=== PATIENT | female | born 2005 | race Two or more races ===

== ENCOUNTER 2024-07-18 09:27 | Emergency (ER) | payer OTHER, SELFPAY ==
[2024-07-18 09:52] VITALS: BP 129/79; PULSE 76; TEMP 36.8; O2SAT 97; BMI 18.0
[2024-07-18 10:30] LABS: Bilirubin Urine NEGATIVE (NEGATIVE); Blood Urine LARGE (NEGATIVE); Clarity Urine CLOUDY (CLEAR); Color Urine DK. RED (YELLOW); Glucose Urine UA NEGATIVE (NEGATIVE); Ketones Urine NEGATIVE (NEGATIVE); Leukocyte Esterase Urine TRACE (NEGATIVE); Nitrite Urine NEGATIVE (NEGATIVE); Protein Urine 100 mg/dL (NEG/TRACE); pH Urine 6.5 (5.0-9.0)
[2024-07-18 10:36] LABS: Urine Microscopic Indicated YES
[2024-07-18 10:36] LABS: Basophils Percent Auto 0.5 % (0.2-2.0); Eosinophils Absolute Auto 0.1 10^3/uL (0.0-0.7); Eosinophils Percent Auto 1.3 % (0.9-7.0); Hemoglobin 12.9 g/dL (12.0-16.0); Immature Granulocytes Abs Auto 0.03 10^3/uL (0.00-0.03); Immature Granulocytes Pct Auto 0.4 % (0.0-0.5); Lymphocytes Absolute Auto 1.7 10^3/uL (1.2-3.8); Lymphocytes Percent Auto 20.1 % (20.5-60.0); Mean Corpuscular HGB Conc 33.9 g/dL (29.9-35.2); Mean Corpuscular Hemoglobin 29.8 pg (26.7-34.0); Mean Corpuscular Volume 87.8 fL (81.0-99.0); Mean Platelet Volume 9.7 fL (9.5-13.5); Monocytes Absolute Auto 0.6 10^3/uL (0.3-0.8); Monocytes Percent Auto 7.7 % (1.7-12.0); Neutrophils Absolute Auto 5.9 10^3/uL (1.4-6.5); Platelet Count 340 10^3/uL (150-450); Red Blood Count 4.33 10^6/uL (4.20-5.40); Red Cell Distribution Width 11.7 % (11.0-15.0); White Blood Count 8.4 10^3/uL (4.0-11.0)
[2024-07-18 10:39] LABS: Bacteria Urine TRACE #/HPF (NONE SEEN); Cast Seen? NONE SEEN #/LPF (NONE SEEN); Crystals Seen? None Seen #/HPF (None Seen); Mucus Urine TRACE (NONE SEEN); RBC Urine >100 #/HPF (0-2); Squamous Epithelial Cell Urine FEW #/LPF (NONE/RARE); Urine Culture Indicated YES-FRMC
[2024-07-18 10:55] LABS: Alanine Aminotransferase 13 U/L (14-59); Albumin Globulin Ratio 1.3; Albumin Level 4.3 g/dL (3.4-5.0); Alkaline Phosphatase 74 U/L (46-116); Anion Gap 16.6; Aspartate Amino Transferase 13 U/L (15-37); BUN Creatinine Ratio 9.4; Bilirubin Total 1.1 mg/dL (0.2-1.0); Calcium 9.3 mg/dL (8.5-10.1); Carbon Dioxide 23.2 mmol/L (21.0-32.0); Chloride 103 mmol/L (98-107); Estimated GFR (African America >60 (>=60 mL/min/1.73m^2); Estimated GFR (Non-African Ame >60 (>=60 mL/min/1.73m^2); Globulin 3.2 g/dL; Glucose 95 mg/dL (74-106); Potassium 3.8 mmol/L (3.5-5.1); Sodium 139 mmol/L (136-145); Total Protein 7.5 g/dL (6.4-8.2)
[2024-07-18 11:01] LABS: HCG Quantitative 666 mIU/mL
[2024-07-18 12:46] VITALS: BP 120/72; PULSE 92; O2SAT 98
--- NOTE | 2024-07-18 13:32 | ED_ITS ---
HPI - Female Genitourinary General Chief complaint: Vaginal Bleeding Stated complaint: 7WKS BLEEDING Time Seen by Provider: 07/18/24 10:13 Source: patient Mode of arrival: ambulance Limitations: no limitations History of Present Illness HPI Narrative: The patient is a 19 years old who is 6-7 weeks coming to the ER after she had 2 days of bleeding vaginally initially it was spotting but then started being more of a blood clot over the last 24 hours. Patient also have some suprapubic cramping This is her first and she was supposed to get an ultrasound at the end of this week to confirm the intrauterine position The patient denies any fall or trauma and she denies any difficulty breathing or dizziness Related Data Home Medications ?Medication ?Instructions ?Recorded ?Confirmed vit no.133-ferrous tab PO 07/18/24 fumarate 28 mg-folic acid 800 mcg tablet () Previous Rx's ?Medication ?Instructions ?Recorded amoxicillin 875 mg-potassium 1 tab PO BID #10 tabs 07/18/24 clavulanate 125 mg tablet Allergies Allergy/AdvReac Type Severity Reaction Status Date / Time No Known Drug Allergies Allergy Verified 07/18/24 09:52 Review of Systems ROS Status of ROS 10 or more systems reviewed and unremark able except as noted in history and below PFSH PFSH Social History Little interest or pleasure in doing things: not at all Feeling down, depressed, or hopeless: not at all Exam Narrative Exam Narrative: Nurses notes and vital signs reviewed and patient is not hypoxic. General: Well-appearing and in no apparent distress. Skin: Warm, dry, no pallor noted. No rash. Head: Normocephalic, atraumatic. Neck: Supple, non-tender. Cardiovascular: Regular Rate and Rhythm without murmur, gallop or rub. Respiratory: No accessory muscle use or respiratory distress. Lungs are clear to auscultation, no wheezing, rales or rhonchi Chest Wall: no tenderness Back: No midline thoracic or lumbar vertebral tenderness. No CVA tenderness Musculoskeletal: normal ROM, no calf or popliteal tenderness, no lower extremity edema/swelling GI: Abdomen is soft, non-distended. Normal bowel sounds. No masses appreciated. No tenderness to palpation. No rebound, guarding, or rigidity noted. Neurological: A&O x4. No cranial nerve dysfunction observed. No truncal ataxia. Moves all extremities. Sensation intact. Psychiatric: Cooperative and interactive. Normal mood and affect. Constitutional Vital Signs, click to edit/add: Last Vital Signs Temp 98.2 F 07/18/24 09:52 Pulse 92 H 07/18/24 12:46 Resp 12 07/18/24 12:46 BP 120/72 07/18/24 12:46 Pulse Ox 98 07/18/24 12:46 O2 Del Method Room Air 07/18/24 12:46 Course Vital Signs Vital signs: Vital Signs Temperature 98.2 F 07/18/24 09:52 Pulse Rate 76 07/18/24 09:52 Respiratory Rate 18 07/18/24 09:52 Blood Pressure 129/79 07/18/24 09:52 Pulse Oximetry 97 07/18/24 09:52 Oxygen Delivery Method Room Air 07/18/24 09:52 Temperature 98.2 F 07/18/24 09:52 Pulse Rate 92 H 07/18/24 12:46 Respiratory Rate 12 07/18/24 12:46 Blood Pressure 120/72 07/18/24 12:46 Pulse Oximetry 98 07/18/24 12:46 Oxygen Delivery Method Room Air 07/18/24 12:46 MDM - Female Genitourinary MDM Narrative Medical decision making narrative: The patient hCG is 600 The CBC and chemistry showed no acute significant pathology and the urine showed some bacteria Her blood type is a positive And her ultrasound showed no intrauterine with a correlation with the fact that is early The patient will follow up with Dr. Akers on Saturday she was instructed about the importance of blood workup test to make sure that the hCG is doubling up every other day The patient is to follow up with primary care physician in next 2-3 days or to return to the emergency department should any of the signs or symptoms worsen or new symptoms develop. The patient agrees with the following Diagnosis and Treatment plan and the patient will be discharged home. Lab Data Labs: Lab Results 07/18/24 07/18/24 Range/Units 10:05 10:31 WBC 8.4 (4.0-11.0) 10^3/uL RBC 4.33 (4.20-5.40) 10^6/uL Hgb 12.9 (12.0-16.0) g/dL Hct 38.0 (36.0-48.0) % MCV 87.8 (81.0-99.0) fL MCH 29.8 (26.7-34.0) pg MCHC 33.9 (29.9-35.2) g/dL RDW 11.7 (11.0-15.0) % Plt Count 340 (150-450) 10^3/uL MPV 9.7 (9.5-13.5) fL Neut % (Auto) 70.0 (43.0-75.0) % Lymph % (Auto) 20.1 L (20.5-60.0) % White % (Auto) 7.7 (1.7-12.0) % Eos % (Auto) 1.3 (0.9-7.0) % Baso % (Auto) 0.5 (0.2-2.0) % Neut # (Auto) 5.9 (1.4-6.5) 10^3/uL Lymph # (Auto) 1.7 (1.2-3.8) 10^3/uL White # (Auto) 0.6 (0.3-0.8) 10^3/uL Eos # (Auto) 0.1 (0.0-0.7) 10^3/uL Baso # (Auto) 0.0 (0.0-0.1) 10^3/uL Abs Immat Gran (auto) 0.03 (0.00-0.03) 10^3/uL Imm/Tot Granulo (auto) 0.4 (0.0-0.5) % Sodium 139 (136-145) mmol/L Potassium 3.8 (3.5-5.1) mmol/L Chloride 103 (98-107) mmol/L Carbon Dioxide 23.2 (21.0-32.0) mmol/L Anion Gap 16.6 BUN 8.0 (7.0-18.0) mg/dL Creatinine 0.85 (0.55-1.02) mg/dL Est GFR ( Amer) >60 (>=60 mL/min/1.73m^2) Est GFR (Non-Af Amer) >60 (>=60 mL/min/1.73m^2) BUN/Creatinine Ratio 9.4 Glucose 95 (74-106) mg/dL Calcium 9.3 (8.5-10.1) mg/dL Total Bilirubin 1.1 H (0.2-1.0) mg/dL AST 13 L (15-37) U/L ALT 13 L (14-59) U/L Alkaline Phosphatase 74 (46-116) U/L Total Protein 7.5 (6.4-8.2) g/dL Albumin 4.3 (3.4-5.0) g/dL Globulin 3.2 g/dL Albumin/Globulin Ratio 1.3 HCG, Quant 666 mIU/mL Urine Color Dk. red (YELLOW) Urine Clarity Cloudy A (CLEAR) Urine pH 6.5 (5.0-9.0) Ur Specific Bentley 1.010 (1.005-1.025) Urine Protein 100 A (NEG/TRACE) mg/dL Urine Glucose (UA) Negative (NEGATIVE) mg/dL Urine Ketones Negative (NEGATIVE) mg/dL Urine Occult Blood Large A (NEGATIVE) Urine Nitrite Negative (NEGATIVE) Urine Bilirubin Negative (NEGATIVE) Urine Urobilinogen 1.0 (0.2-1.0) EU/dL Ur Leukocyte Esterase Trace A (NEGATIVE) Urine RBC >100 A (0-2) #/HPF Urine WBC 5-10 A (NONE SEEN) #/HPF Ur Squamous Epith Cells Few A (NONE/RARE) #/LPF Urine Crystals None seen (None Seen) #/HPF Urine Bacteria Trace A (NONE SEEN) #/HPF Urine Casts None seen (NONE SEEN) #/LPF Urine Mucus Trace A (NONE SEEN) Ur [place] [place] A Positive Antibody Screen Negative Discharge Plan Discharge Chief Complaint: Vaginal Bleeding Clinical Impression: Vaginal bleeding affecting early , Asymptomatic bacteriuria during Patient Disposition: Home, Self-Care Time of Disposition Decision: 12:30 Condition: Good Prescriptions / Home Meds: New amoxicillin-pot clavulanate 875-125 mg tablet 1 tab PO BID Qty: 10 0RF No Action 28-800 mg-mcg tablet PO Print Language: Mauritanian Instructions: Threatened Miscarriage (ED), Urinary Tract Infection in (ED) Referrals: Anthony Akers DO [Physician] - As soon as possible Physician,Non-Staff, [Primary Care Provider] - 1 week Discharge Date/Time: 07/18/24 12:49
== END 2024-07-18 12:49 | disposition home or self-care (01) ==
PROVIDERS: Emergency Provider Emergency Medicine
DX: O20.9 Hemorrhage in early pregnancy, unspecified (principal); Z3A.01 Less than 8 weeks gestation of pregnancy; O99.891 Other specified diseases and conditions complicating pregnancy; R82.71 Bacteriuria
CPT/HCPCS: 36415; 76817; 80053; 81001; 84702; 85025; 86850; 86900; 86901; 87086; 99284

== ENCOUNTER 2024-07-21 15:24 | Outpatient (RCR) | payer OTHER, SELFPAY ==
[2024-07-21 16:34] LABS: HCG Quantitative 83 mIU/mL
[2024-07-29 16:24] LABS: HCG Quantitative 6 mIU/mL
== END 2024-07-29 09:55 | disposition home or self-care (01) ==
LOC: LAB 15:24
PROVIDERS: Visit Provider Obstetrics & Gynecology
DX: N92.6 Irregular menstruation, unspecified (principal)
CPT/HCPCS: 36415; 84702

== ENCOUNTER 2024-10-22 15:37 | Emergency (ER) | payer OTHER, SELFPAY ==
--- OUTSIDE RECORDS SUMMARY | 2024-07-13 11:45 | XMS_ITS ---
Author Organization [facility] vices Address [address] [place], [place] [address] Care Team Providers Care Biology Internship Name Role Phone Nadia Barrett Primary Care Provider [phone] Georgia Ramos [phone] REASON FOR VISIT Wellness (physical for work) Social History Sex Assigned At : Social History Observation Description Sex Assigned At Female Encounters Encounter Location Date Provider Diagnosis Third [address] [facility] [place] [address] 07/13/2024 Georgia Ramos Plan Of Treatment No Information Progress Notes * Rand JACKSON MDOB: [birth year] (19 yo F)Acc No.[id number]:07/13/2024 Medical Note Patient: Rand LIU Provider: Jim Ramos MD :2005 A ge:19 Y S ex:Female Date:07/13/2024 Address:[address] [place], [place] [phone] Pcp:Nadia Barrett Subjective: * Chief Complaints: * 1 . Wellness (physical for work). * Medical History: Objective: * Vitals: Assessment: Plan: * Treatment: * Billing Information: * Visit Code: * Procedure Codes: * Electronic signature of Mary Ramos MD on 10/22/2024 at 04:15 PM EDT Sign off status: Pending * Provider: Jim Ramos MD Date: 0 07/13/2024 Generated for Tanisha turner/Ana María/Berry on: 0 10/22/2024 04:15 PM EDT
[2024-10-22 15:52] VITALS: BP 129/78; PULSE 65; TEMP 36.6; O2SAT 99; BMI 19.7
--- NOTE | 2024-10-22 16:10 | ED.GENADUL1 ---
HPI HPI - General Adult General Chief complaint: Nausea/Vomiting/Diarrhea Stated complaint: VOMITTING LAST 2 DAYS Time Seen by Provider: 10/22/24 15:46 Source: patient Mode of arrival: walk-in Limitations: no limitations History of Present Illness HPI narrative: This 19-year-old female presents chief complaint multiple episodes of vomiting yesterday. Today she vomited 5 times. She denies diarrhea or abdominal pain. LMP was 3 weeks ago. Her last usage of marijuana was 2 days ago. Related Data Home Medications ?Medication ?Instructions ?Recorded ?Confirmed vits no.133-ferrous tab PO 07/18/24 fumarate 28 mg-folic acid 800 mcg tablet () Previous Rx's ?Medication ?Instructions ?Recorded promethazine 12.5 mg tablet 12.5 mg PO TID PRN nausea and 10/22/24 vomiting #10 tabs Allergies Allergy/AdvReac Type Severity Reaction Status Date / Time No Known Drug Allergies Allergy Verified 10/22/24 15:55 Opioid HPI Opioid Management Most Recent Opioid Data: Last Pain Scale 2 07/18/24, 11:16 Review of Systems ROS Status of ROS 10 or more systems reviewed and unremarkable except as noted in history and below [facility] Social History Little interest or pleasure in doing things: not at all Feeling down, depressed, or hopeless: not at all Exam Narrative Exam Narrative: Patient is not ill-appearing. Vital signs are stable. Skin is warm and dry. Oral cavity is moist. HEENT exam is normal to inspection. Neck is supple. Lung sounds are clear to auscultation bilaterally with good air entry. Heart has regular rate and rhythm. Abdomen soft nontender. There is no organomegaly or distention. Extremities warm and dry and there is no pallor or icterus. Constitutional Vital Signs, click to edit/add: Last Vital Signs Temp 97.8 F 10/22/24 15:52 Pulse 65 10/22/24 15:52 Resp 16 10/22/24 15:52 BP 129/78 10/22/24 15:52 Pulse Ox 99 10/22/24 15:52 O2 Del Method Room Air 10/22/24 15:52 Course Vital Signs Vital signs: Vital Signs Temperature 97.8 F 10/22/24 15:52 Pulse Rate 65 10/22/24 15:52 Respiratory Rate 16 10/22/24 15:52 Blood Pressure 129/78 10/22/24 15:52 Pulse Oximetry 99 10/22/24 15:52 Oxygen Delivery Method Room Air 10/22/24 15:52 Temperature 97.8 F 10/22/24 15:52 Pulse Rate 65 10/22/24 15:52 Respiratory Rate 16 10/22/24 15:52 Blood Pressure 129/78 10/22/24 15:52 Pulse Oximetry 99 10/22/24 15:52 Oxygen Delivery Method Room Air 10/22/24 15:52 Medical Decision Making MDM Narrative Medical decision making narrative: Patient was treated with a liter of IV fluids and IV Zofran. She has not had any vomiting in the ED. She is advised to abstain from cannabis use and is placed on promethazine to control nausea and vomiting at home. Follow-up as advised with PCP and she may return anytime for worsening symptoms. Lab Data Labs: Lab Results 10/22/24 10/22/24 Range/Units 16:20 16:21 WBC 9.1 (4.0-11.0) 10^3/uL RBC 4.52 (4.20-5.40) 10^6/uL Hgb 13.7 (12.0-16.0) g/dL Hct 39.6 (36.0-48.0) % MCV 87.6 (81.0-99.0) fL MCH 30.3 (26.7-34.0) pg MCHC 34.6 (29.9-35.2) g/dL RDW 12.0 (11.0-15.0) % Plt Count 348 (150-450) 10^3/uL MPV 10.0 (9.5-13.5) fL Neut % (Auto) 80.4 H (43.0-75.0) % Lymph % (Auto) 13.5 L (20.5-60.0) % [place] % (Auto) 5.6 (1.7-12.0) % Eos % (Auto) 0.0 L (0.9-7.0) % Baso % (Auto) 0.2 (0.2-2.0) % Neut # (Auto) 7.3 H (1.4-6.5) 10^3/uL Lymph # (Auto) 1.2 (1.2-3.8) 10^3/uL [place] # (Auto) 0.5 (0.3-0.8) 10^3/uL Eos # (Auto) 0.0 (0.0-0.7) 10^3/uL Baso # (Auto) 0.0 (0.0-0.1) 10^3/uL Abs Immat Gran (auto) 0.03 (0.00-0.03) 10^3/uL Imm/Tot Granulo (auto) 0.3 (0.0-0.5) % Sodium 139 (136-145) mmol/L Potassium 3.3 L (3.5-5.1) mmol/L Chloride 100 (98-107) mmol/L Carbon Dioxide 26.8 (21.0-32.0) mmol/L Anion Gap 15.5 BUN 13.0 (7.0-18.0) mg/dL Creatinine 0.78 (0.55-1.02) mg/dL Est GFR ( Amer) >60 (>=60 mL/min/1.73m^2) Est GFR (Non-Af Amer) >60 (>=60 mL/min/1.73m^2) BUN/Creatinine Ratio 16.7 Glucose 95 (74-106) mg/dL Calcium 9.8 (8.5-10.1) mg/dL Total Bilirubin 0.8 (0.2-1.0) mg/dL AST 13 L (15-37) U/L ALT 20 (14-59) U/L Alkaline Phosphatase 83 (46-116) U/L Total Protein 8.1 (6.4-8.2) g/dL Albumin 4.5 (3.4-5.0) g/dL Globulin 3.6 g/dL Albumin/Globulin Ratio 1.2 Urine Color Yellow (YELLOW) Urine Clarity Clear (CLEAR) Urine pH 6.0 (5.0-9.0) Ur Specific [place] 1.025 (1.005-1.025) Urine Protein 30 A (NEG/TRACE) mg/dL Urine Glucose (UA) Negative (NEGATIVE) mg/dL Urine Ketones >=80 A (NEGATIVE) mg/dL Urine Occult Blood Negative (NEGATIVE) Urine Nitrite Negative (NEGATIVE) Urine Bilirubin Small A (NEGATIVE) Urine Urobilinogen 1.0 (0.2-1.0) EU/dL Ur Leukocyte Esterase Negative (NEGATIVE) Urine RBC 0-2 (0-2) #/HPF Urine WBC 0-2 A (NONE SEEN) #/HPF Ur Squamous Epith Cells Moderate A (NONE/RARE) #/LPF Urine Crystals None seen (None Seen) #/HPF Urine Bacteria Large A (NONE SEEN) #/HPF Urine Casts None seen (NONE SEEN) #/LPF Urine Mucus Moderate A (NONE SEEN) Ur Culture Indicated? Yes-[facility] Urine HCG, Qual Negative (NEGATIVE) Discharge Plan Discharge Chief Complaint: Nausea/Vomiting/Diarrhea Clinical Impression: Nausea and vomiting Qualifiers: Vomiting type: unspecified Qualified Code(s): R11.2 - Nausea with vomiting, unspecified Patient Disposition: Home, Self-Care Time of Disposition Decision: 17:46 Condition: Good Mode of Transportation: Private Vehicle Prescriptions / Home Meds: New promethazine 12.5 mg tablet 12.5 mg PO TID PRN (Reason: nausea and vomiting) Qty: 10 0RF No Action 28-800 mg-mcg tablet PO Print Language: South Korean Instructions: Acute Nausea and Vomiting (ED) Additional Instructions: Abstain from cannabis use. Follow-up with your PCP next week. Return for worsening symptoms. Referrals: Physician,Non-Staff, MD [Primary Care Provider] - 1 week
--- OUTSIDE RECORDS SUMMARY | 2024-10-22 16:16 | XMS_ITS | Clinical Summary ---
Author Organization [employer] s tem Address [facility] [id number] [address] [place] [address] Care Team Providers Care Assisted Living Housekeeper Name Role Phone Unavailable Primary Care Provider Unavailabl e Social History Tobacco Use Types Packs/Day Years Used Date Smoking Tobacco: Never Assessed Childcare Answer Date Recorded Childcare Unknown 09/10/2018 Employment Answer Date Recorded Employment Unknown 09/10/2018 Comments Unknown Sex and Gender Information Value Date Recorded Sex Assigned at Not on file Legal Sex Female 6:56 PM EDT Gender Identity Not on file Sexual Orientation Not on file Plan of Treatment Health Maintenance Due Date Last Done Comments Depression Screening 2016 Tobacco Screening 2016 Adult BMI Screening 2022 DTaP,Tdap and Td Vaccines (1 - Tdap) 07/03/2023 Influenza Vaccine 11/30/2024 Medical Devices Not on file
--- OUTSIDE RECORDS SUMMARY | 2024-10-22 16:16 | XMS_ITS | Clinical Summary ---
Author Organization [facility] Address [address] [place] [address] Care Team Providers Care Television Director Name Role Phone Unavailable Primary Care Provider Unavailabl e Allergies No known active allergies Medications sertraline (Zoloft) 50 MG tablet TAKE 1 TABLET BY MOUTH ONCE DAILY IN THE MORNING FOR 30 DAYS Active Encounters Date Type Department Care Team Description 07/29/2024 Clinisync Result Encounter [facility] External Department Unsolicited Anthony Akers DO from Last 3 Months Social History Tobacco Use Types Packs/Day Years Used Date Smoking Tobacco: Never Assessed Comments No Sex and Gender Information Value Date Recorded Sex Assigned at Not on file Legal Sex Female 9:50 PM EDT Gender Identity Not on file Sexual Orientation Not on file Last Filed Vital Signs Vital Sign Reading Time Taken Comments Blood Pressure 90/62 07/22/2024 3:28 PM EDT Pulse - - Temperature - - Respiratory Rate - - Oxygen Saturation - - Inhaled Oxygen Concentration - - Weight 48.5 kg (107 lb) 07/22/2024 3:28 PM EDT Height - - Body Mass Index - - Plan of Treatment Not on file Procedures Procedure Name Priority Date/Time Associated Diagnosis Comments [facility] PREG QUANT HCG Routine 07/29/2024 3: 55 PM EDT from Last 3 Months Results * [facility] PREG QUANT HCG (07/29/2024 3:55 PM EDT) [facility] HCG QUANTITATIVE 6 mIU/mL [facility] Comment: 5-50 0.2-1 WEEK 50-500 1-2 WEEKS 100-5,000 2-3 WEEKS 500-10,000 3-4 WEEKS 1,000-50,000 4-5 WEEKS 10,000-100,000 5-6 WEEKS 15,000-200,000 6-8 WEEKS 10,000-100,000 2-3 MONTHS 07/29/2024 3:55 PM EDT 07/29/2024 3:55 PM EDT Narrative [facility] - 07/29/2024 4:24 PM EDT us Anthony Oswald DO [facility] Final Result [facility] from Last 3 Months Insurance [employer]
[2024-10-22 16:33] LABS: Hematocrit 39.6 % (36.0-48.0); Hemoglobin 13.7 g/dL (12.0-16.0); Immature Granulocytes Abs Auto 0.03 10^3/uL (0.00-0.03); Immature Granulocytes Pct Auto 0.3 % (0.0-0.5); Lymphocytes Absolute Auto 1.2 10^3/uL (1.2-3.8); Mean Corpuscular HGB Conc 34.6 g/dL (29.9-35.2); Mean Corpuscular Hemoglobin 30.3 pg (26.7-34.0); Mean Corpuscular Volume 87.6 fL (81.0-99.0); Platelet Count 348 10^3/uL (150-450); Red Blood Count 4.52 10^6/uL (4.20-5.40); White Blood Count 9.1 10^3/uL (4.0-11.0)
[2024-10-22] MEDS: 0.9 % SODIUM CHLORIDE 1,000 ML 1000 ML IV (16:37)
[2024-10-22 16:42] LABS: Glucose Urine UA NEGATIVE (NEGATIVE)
[2024-10-22 16:44] LABS: HCG Qualitative Urine* NEGATIVE (NEGATIVE)
[2024-10-22 16:46] LABS: Alanine Aminotransferase 20 U/L (14-59); Albumin Globulin Ratio 1.2; Albumin Level 4.5 g/dL (3.4-5.0); Alkaline Phosphatase 83 U/L (46-116); Anion Gap 15.5; Aspartate Amino Transferase 13 U/L (15-37); Blood Urea Nitrogen 13.0 mg/dL (7.0-18.0); Calcium 9.8 mg/dL (8.5-10.1); Carbon Dioxide 26.8 mmol/L (21.0-32.0); Chloride 100 mmol/L (98-107); Estimated GFR (African America >60 (>=60 mL/min/1.73m^2); Estimated GFR (Non-African Ame >60 (>=60 mL/min/1.73m^2); Globulin 3.6 g/dL; Glucose 95 mg/dL (74-106); Potassium 3.3 mmol/L (3.5-5.1); Sodium 139 mmol/L (136-145); Total Protein 8.1 g/dL (6.4-8.2)
[2024-10-22 16:50] LABS: Cast Seen? NONE SEEN #/LPF (NONE SEEN); Crystals Seen? None Seen #/HPF (None Seen); Urine Culture Indicated YES-FRMC
== END 2024-10-22 17:59 | disposition home or self-care (01) ==
PROVIDERS: Emergency Provider Emergency Medicine
DX: R11.2 Nausea with vomiting, unspecified (principal)
CPT/HCPCS: 36415; 80053; 81001; 84703; 85025; 87086; 96361; 96374; 99285; J2405

== ENCOUNTER 2024-12-31 15:54 | Outpatient (OUT) | payer OTHER, SELFPAY ==
--- OUTSIDE RECORDS SUMMARY | 2024-07-13 11:45 | XMS_ITS ---
Author Organization [employer] [facility] vices Address [address] [place], [place] [phone] Care Team Providers Care Lpn Private Duty Name Role Phone Dennise Oden Primary Care Provider Georgia Ramos Unavailable [phone] REASON FOR VISIT Wellness (physical for work) Social History Sex Assigned At : Social History Observation Description Sex Assigned At Female Encounters Encounter Location Date Provider Diagnosis Third [address] [facility] [place] [address] [place] [address] 07/13/2024 Georgia Ramos Plan Of Treatment No Information Progress Notes * Rand JACKSON MDOB: [birth year] (19 yo F)Acc No.[id number]:07/13/2024 Medical Note Patient: Rand LIU Provider: Jim Ramos MD :2005 A ge:19 Y S ex:Female Date:07/13/2024 Address:[address] [place], [place] [phone] Pcp:Dennise Oden Subjective: * Chief Complaints: * 1 . Wellness (physical for work). * Medical History: Objective: * Vitals: Assessment: Plan: * Treatment: * Billing Information: * Visit Code: * Procedure Codes: * Electronic signature of Mary Ramos MD on 12/31/2024 at 03:58 PM EDT Sign off status: Pending * Provider: Jim Ramos MD Date: 0 07/13/2024 Generated for Tanisha turner/Ana María/Berry on: 1 03:58 PM EDT
--- OUTSIDE RECORDS SUMMARY | 2024-10-23 08:00 | XMS_ITS ---
Author Organization [facility] vices Address [address] [place], [place] [address] Care Team Providers Care Guitar Maker Name Role Phone Dennise Oden Primary Care Provider Georgia Ramos Unavailable [phone] REASON FOR VISIT ER Reyes 10/22 - Vomiting Social History Sex Assigned At : Social History Observation Description Sex Assigned At Female Encounters Encounter Location Date Provider Diagnosis Third [address] [facility] [place] [address] [place] [address] 10/23/2024 Georgia Ramos Plan Of Treatment No Information Progress Notes * Rand JACKSON MDOB: [birth year] (19 yo F)Acc No.[id number]:10/23/2024 Medical Note Patient: Rand LIU Provider: Jim Ramos MD :2005 A ge:19 Y S ex:Female Date:10/23/2024 Address:[address] [place], [place] [phone] Pcp:Dennise Oden Subjective: * Chief Complaints: * 1 . ER [place]al[place] 10/22 - Vomiting. * Medical History: Objective: * Vitals: Assessment: Plan: * Treatment: * Billing Information: * Visit Code: * Procedure Codes: * Electronic signature of Mary Ramos MD on 12/31/2024 at 03:58 PM EDT Sign off status: Pending * Provider: Jim Ramos MD Date: 0 10/23/2024 Generated for Tanisha turner/Ana María/Berry on: 1 03:58 PM EDT
--- OUTSIDE RECORDS SUMMARY | 2024-12-31 15:58 | XMS_ITS | Clinical Summary ---
Author Organization [facility] Address [address] [place] [address] Care Team Providers Care Quality Facilitator Name Role Phone Melani Mora DMD, MD Unavailable [phone] Source Comments The following information is NOT included in Care Everywhere downloads:Psychiatric notes, ECG results, Cardiac Rehab notes, Pulmonary Function notes, data from [employer] (includes but not limited toPregnancy data,audiograms, eye exams, pre-surgical evaluation notes, well-child exam data).[facility] Allergies No known active allergies Medications sertraline (ZOLOFT) 50 MG tablet Take 50 mg by mouth daily. Active norethindrone-e thinyl estradiol (JUNE04/20) 1-20 MG-MCG tablet Take 1 Tablet by mouth daily. 03/02/2023 Active chlorhexidine (Peridex) 0.12 % oral solution Take 15 mL by mouth 2 times daily (after meals) for 7 days. Swish and spit 15ml BID after meals. Rinse for 30 seconds and then gently spit. Do not swallow. 473 mL 03/22/2023 Active Resolved Problems Problem Noted Date Diagnosed Date Resolved Date Abnormal tooth eruption 02/05/202303/02 Immunizations Immunization Administration Dates Next Due DTaP, 5 pertussis antigens ( Daptacel) (IMB=411) 10/03/2005 DTaP-Hep B-IPV (Pediarix) (BPW=189) 01/02/2005,0 2004,2004 HPV, 9-valent (Gardasil 9) (FER=477) 05/30/2018, 08/31/2016 Hep A (peds/adol, 2 dose) (CVX=83) 11/07/2006, Hib (PRP-T) (CVX=48) 10/03/2005,01/03/20 05,2004,09/04 Influenza, injectable, triva lent, preservative free (QQN=940) 02/24/2007 Influenza, intranasal, live, trivalent (LAIV3) (DIS=382) 02/20/2008 MMR, Olclrpd-Xqhhe-Izugwfh (CVX=03) 08/20/2008,0 10/03/2005 Meningococcal conjugate (MCV4,Men-ACWY), Menactra (MCV4P) (BZP=444) 07/24/2021,08/31/2016 Pneumococcal conjugate 7 sharri ent (PCV7) (BHC=783) 10/03/2005,01/02/2005,2004,09/04 Polio, inactivated (IPV) (CVX=10) 09/02/2009 Tdap (XWR=012) 08/31/2016,08/20/2008 Varicella (Chickenpox) (CVX=21) 08/20/2008,10/03 Social History Tobacco Use Types Packs/Day Years Used Date Smoking Tobacco: Every Day E-cigarette Smokeless Tobacco: Never Tobacco Cessation:Ready to Q uit: Not Asked Alcohol Use Standard Drinks/Week Comments Not Currently 0 (1 standard drink = 0.6 oz pur e alcohol) Substance Use Types Use/Week Comments Yes Marijuana/THC Comments No Sex and Gender Information Value Date Recorded Sex Assigned at Not on file Legal Sex Female 4:18 PM EDT Gender Identity Not on file Sexual Orientation Not on file Last Filed Vital Signs Vital Sign Reading Time Taken Comments Blood Pressure 134/84 03/22/2023 12:00 PM EST Pulse 85 03/22/2023 12:00 PM EST Temperature 37.2 C (98.9 F) 03/22/2023 11:21 AM EST Respiratory Rate 14 03/22/2023 12:00 PM EST Oxygen Saturation 100% 03/22/2023 12:00 PM EST Inhaled Oxygen Concentration - - Weight 54.4 kg (120 lb) 03/22/2023 10:04 AM EST Height 162.6 cm (5' 4 ) 03/22/2023 10:04 AM EST Body Mass Index 20.6 03/22/2023 10:04 AM EST Plan of Treatment Health Maintenance Due Date Last Done Comments HIV Test 07/03/2019 Meningococcal B (Bexsero,OMV ) Vaccine (Optional,16-23 years) 2020 Hepatitis C Antibody 2022 STI Screening (Age 18-24) 2022 Pneumococcal Vaccine(s) (1 o f 2 - PCV) 07/03/2023 10/03/2005, 01/02/2005, 2004, Additional history exists COVID-19 Vaccine ( - 2023-2 5 season) 2024 Influenza Vaccine (#1) 2024 02/20/2008, 2006 Tetanus (Td or Tdap) Booster 08/31/2026 08/31/2016, 08/20/2008 Shingles (RZV) Vaccine (1 of 2) 2054 Hepatitis B (HBV) Vaccine Completed 2004, 2004, 2004 Hepatitis A (HAV) Vaccine Completed 11/07/2006, 10/2006 Tdap Booster Completed 08/31/2016, 08/20/2008 HPV Vaccine Completed 05/30/2018, 08/31/2016 Meningococcal Conjugate (MCV4,ACWY) Vaccine Discontinued 07/24/2021, 08/31/2016 Mammography Discontinued Insurance [employer] on file [address] [place] [address] [employer] Care Teams Quality Facilitator Relationship Specialty Start Date End Date Melani Mora DMD, MD [address] [place] [id number] Physician Oral & Maxillofacial Surgery 03/02/23
--- OUTSIDE RECORDS SUMMARY | 2024-12-31 15:59 | XMS_ITS | Encounter Summary ---
Author Organization [facility] Address [address] [place] [address] Care Team Providers Care Account Services Specialist Name Role Phone Unavailable Primary Care Provider Unavailabl e Encounter Details Date Type Department Care Team (Late st Contact Info) Description 12/31/2024 [place] [address] Danna Jimenez MA Social History Tobacco Use Types Packs/Day Years Used Date Smoking Tobacco: Never Assessed Comments No Sex and Gender Information Value Date Recorded Sex Assigned at Not on file Legal Sex Female 9:50 PM EDT Gender Identity Not on file Sexual Orientation Not on file documented as of this encounter Miscellaneous Notes * Telephone Encounter - Danna Jimenez MA - 12/31/2024 1:39 PM EDT Pt's mother called in stating daughter went to [facility] for early ultrasound and they did not see anything. Called pt. Pt denies any bleeding or cramping. Pt states LMP is 11/06/2024. Per EXTENSION SUPERVISOR pt to repeat ultrasound in 1wk and have hCG level drawn and possible serial hCG levels. PVU orders faxed toT documented in this encounter Plan of Treatment Upcoming Encounters Date Type Department Care Team (Late st Contact Info) Description 01/07/2025 1:00 PM EDT Ancillary [place] [address] 01/07/2025 1:30 PM EDT [place] [address] Scheduled Orders Name Type Priority Associated Diagnoses Orde r Schedule hCG, quantitative, Lab Routine Positive urine test ([facility]) 2 Occurrences starting 12/31/2024 until 12/31/2025 documented as of this encounter Visit Diagnoses Diagnosis Positive urine test ([facility]) Missed menses Positive urine test ([facility]) documented in this encounter
--- OUTSIDE RECORDS SUMMARY | 2024-12-31 15:59 | XMS_ITS | Clinical Summary ---
Author Organization [employer] s tem Address [id number] [address] [place] [address] Care Team Providers Care Radio Commentator Name Role Phone Unavailable Primary Care Provider [...]
--- OUTSIDE RECORDS SUMMARY | 2024-12-31 15:59 | XMS_ITS | Clinical Summary ---
Author Organization [facility] Address [address] [place] [address] Care Team Providers Care Fermentologist Name Role Phone Unavailable Primary Care Provider Unavailabl e Allergies No known active allergies Medications sertraline (Zoloft) 50 MG tablet TAKE 1 TABLET BY MOUTH ONCE DAILY IN THE MORNING FOR 30 DAYS Active Progesterone 200 MG suppositoryIndi cations:History of miscarriage Insert 200 mg into the vagina at bedtime Insert suppository vaginally every night at bedtime until 12 weeks gestation 30 suppository 3 12/24/19 25 025 Active Encounters Date Type Department Care Team Description 12/31/2024 Telephone [facility] [address] [place] [address] [place] [phone] Danna Jimenez MA 12/23/2024 Telephone [facility] [address] [place] [address] [place] [address] Anthony Akers DO from Last 3 Months [...] Mass Index - - Plan of Treatment Upcoming Encounters Date Type Department Care Team ( Contact Info) Description 01/07/2025 1:00 PM EDT Ancillary Procedure [facility] [address] [place] [address] 01/07/2025 1:30 PM EDT [place] [phone] Insurance [employer]
--- OUTSIDE RECORDS SUMMARY | 2024-12-31 15:59 | XMS_ITS | Encounter Summary ---
Author Organization [facility] Address [address] [place] [address] Care Team Providers Care Glove Printer Name Role Phone Unavailable Primary Care Provider Unavailabl e Encounter Details Date Type Department Care Team (Late st Contact Info) Description 12/23/2024 Telephone [facility] [address] [place] [address] Anthony Akers DO [address] [place], [place] [phone] Social History Tobacco Use Types Packs/Day Years Used Date Smoking Tobacco: Never Assessed Comments No Sex and Gender Information Value Date Recorded Sex Assigned at Not on file Legal Sex Female 9:50 PM EDT Gender Identity Not on file Sexual Orientation Not on file documented as of this encounter Miscellaneous Notes * Telephone Encounter - Rae Lugo LPN - 12/23/2024 9:35 AM EDT Patient called the office states has had a history of miscarriage and she was advised to call the office once she does have a positive test to start meds. Patient call was returned and she was advised [facility]. PVU documented in this encounter Plan of Treatment Upcoming Encounters Date Type Department Care Team (Late st Contact Info) Description 01/07/2025 1:00 PM EDT Ancillary Procedure [facility] [address] [place] [address] 01/07/2025 1:30 PM EDT Initial [facility] [address] [place] [address] [place] [phone] documented as of this encounter Visit Diagnoses Diagnosis History of miscarriage Personal history of other genital system and obstetric disorders Missed menses Positive urine test ([facility]) documented in this encounter
--- OUTSIDE RECORDS SUMMARY | 2024-12-31 19:53 | XMS_ITS | CCD ---
Author Organization [facility] Care Team Providers Care Brace End [place] Former Name Role Phone Unavailable Primary Care Provider Unavailkhloe Mora DMD, MD, Petra Unavailable [phone] PROVIDER, UNKNOWN Admitting Unavailable PROVIDER, UNKNOWN Attending Unavailable YU FU Referring Unavailable PROVIDER, UNKNOWN Admitting Unavailable PROVIDER, UNKNOWN Attending Unavailable BARBY MORA Referring Unavailable BARBY MORA Admitting Unavailable BARBY MORA Attending Unavailable PROVIDER, UNKNOWN Admitting Unavailable PROVIDER, UNKNOWN Attending Unavailable Unavailable Primary Care Provider VASILE Espinal Attending Unavailable Haley Dickerson MD Attending Provider Shabbir Kraus MD Attending Provider Shabbir Kraus Attending Unavailable Shabbir Kraus Admitting Unavailable Haley Dickerson Attending Unavailable Haley Dickerson Admitting Unavailable Medications Current Medications Medication Drug Class(es) Dates Sig (Normalized) Sig (Original) acetaminophen 500 mg oral tablet (1 source) Start: 03-22-2023 acetaminophen (TYLENOL) tablet acetaminophen 325 mg / HYDROcodone bitartrate 5 mg oral tablet (1 source) Opioid Agonist Start: 03-22-2023 End: 03-25-2023 take 1 tablet by mouth every six hours as needed for pain hydrocodone-acetami nophen (Camas) 5-325 mg per tablet Indications: Pain following oral surgery Take 1 Tablet by mouth every 6 hours as needed for Pain for up to 3 days. 12 Tablet 0 03/22/2023 03/25/2023 Active albuterol 0.83 mg/ml inhalation solution (1 source) beta2-Adrenergic Agonist Start: 03-22-2023 End: 03-22-2023 albuterol (PROVENTIL) (2.5 MG/3ML) 0.083% nebulizer solution calcium chloride 0.0014 meq/ml / potassium chloride 0.004 meq/ml / sodium chloride 0.103 meq/ml / sodium lactate 0.028 meq/ml injectable solution (2 sources) Start: 03-22-2023 lactated ringers iv infusion celecoxib 200 mg oral capsule (1 source) Nonsteroidal Anti-inflammatory Drug Start: 03-22-2023 celecoxib (CeleBREX) capsule chlorhexidine gluconate 1.2 mg/ml mouthwash (2 sources) Start: 03-22-2023 End: 03-29-2023 chlorhexidine (Peridex) 0.12 % oral solution Take 15 mL by mouth 2 times daily (after meals) for 7 days. Swish and spit 15ml BID after meals. Rinse for 30 seconds and then gently spit. Do not swallow. 473 mL 0 03/22/2023 03/29/2023 Active Start: 03-22-2023 chlorhexidine (PERIDEX) 0.12 % oral solution Ethinyl Estradiol / Ferrous fumarate / Norethindrone (1 source) Estrogen Start: 03-02-2023 norethindrone- ethinyl estradiol (JUNEL FE 04/20) 1-20 MG-MCG tablet Take 1 Tablet by mouth daily. 0 03/02/2023 Active fentaNYL (SUBLIMAZE) 50 MCG/ML injection (2 sources) Start: 03-22-2023 fentaNYL (SUBL IMAZE) 50 MCG/ML injection Start: 03-22-2023 fentaNYL (SUBL IMAZE) 50 MCG/ML injection ibuprofen 600 mg oral tablet (1 source) Nonsteroidal Anti-inflammatory Drug Start: 03-22-2023 End: 03-29-2023 take 1 tablet by mouth every six hours as needed for pain ibuprofen (MOTRIN) 600 MG tablet Take 1 Tablet by mouth every 6 hours as needed for Pain for up to 7 days. 28 Tablet 0 03/22/2023 03/29/2023 Active 1 ml naloxone hydrochloride 0.4 mg/ml injection (1 source) Opioid Antagonist Start: 03-22-2023 naloxone (NARCAN) 0.4 MG/ML injection 2 ml ondansetron 2 mg/ml injection (1 source) Serotonin-3 Receptor Antagonist Start: 03-22-2023 End: 03-22-2023 ondansetron (ZOFRAN) 4 MG/2ML injection oxyCODONE hydrochloride 5 mg oral tablet (1 source) Opioid Agonist Start: 03-22-2023 End: 03-22-2023 oxyCODONE immediate release tablet 72 hr scopolamine 0.0139 mg/hr transdermal system (1 source) Anticholinergic Start: 03-22-2023 End: 03-25-2023 scopolamine (TRANSDERM-SCOP) 1 MG/3DAYS patch sertraline 50 mg oral tablet (5 sources) Serotonin Reuptake Inhibitor take 1 tablet by mouth once daily in the morning sertraline (Zoloft) 50 MG tablet TAKE 1 TABLET BY MOUTH ONCE DAILY IN THE MORNING FOR 30 DAYS Active Completed/Discontinued Medications Medication Drug Class(es) Dates Sig (Normalized) Sig (Original) ceFAZolin 2000 mg injection (3 sources) Cephalosporin Antibacterial Start: 02-06-2023 End: 02-06-2023 ceFAZolin (ANCEF) 2,000 mg in dextrose 50 mL ivpb Start: 02-06-2023 End: 02-06-2023 ceFAZolin (ANCEF) 2,000 mg i n dextrose 50 mL ivpb Start: 02-06-2023 End: 02-06-2023 ceFAZolin (ANCEF) 2,000 mg i n dextrose 50 mL ivpb Problems Problem Classification Problem Date Documented Date Episodic/Chronic Disorders of teeth and jaw (13 sources) Disorder of teeth and supporting structures, unspecified; Translations: [Unspecified disorder of the teeth and supporting structures] Onset: 02-05-2023 Resolved: 03-22-2023 Episodic Hemorrhage during ; abruptio placenta; placenta previa (2 sources) Threatened miscarriage in first trimester; Translations: [Threatened ] 07-22-2024 Episodic Other aftercare (2 sources) Post-discharge follow-up; Translations: [Encounter for follow-up examination after completed treatment for conditions other than malignant neoplasm] 07-22-2024 Episodic Other nervous system disorders (1 source) Painful mouth; Translations: [Other acute postprocedural pain] 03-22-2023 Episodic Residual codes; unclassified (1 source) Other specified postprocedural states; Translations: [Other specified postprocedural states] Onset: 03-28-2023 Episodic Results Test Name Value Interpretation Reference Range Facility Urine Cultureon 07-24-2025 Bacteria identified Cx Nom (U) >100,000 colonies/ml mixed bacterial skin contaminants 2 Days PERFORMED BY: [place] [address] PATHOLOGIST INTERNAL MEDICINE DOCTOR KLAUDIA Johnson [facility] Comment on above: Performed By: #### C UU #### [address] [facility] PREG QUANT HCGon 025 HCG QUANTITATIVE 6 mIU/mL [facility] Comment on above: 5-50 0.2-1 WEEK 50-500 1-2 WEEKS 100-5,000 2-3 WEEKS 500-10,000 3-4 WEEKS 1,000-50,000 4-5 WEEKS 10,000-100,000 5-6 WEEKS 15,000-200,000 6-8 WEEKS 10,000-100,000 2-3 MONTHS [facility] HCG ( test) Ql (U)o n 07-22-2024 Interpretation and review of laboratory results Abnormal [facility] Preg Test, Ur Positive Negative [facility] care [facility] Urinalysis macro (dipstick) panel (U)on 07-22-2024 Bilirubin, UA Negative Negative - 4(70) +++ mg/dL [facility] Blood, UA Positive Negative - 50 Krishna/mcL [facility] Comment on above: large Clarity, UA Clear [facility] Color, UA Yellow [facility] Glucose, UA Negative Negative - 1999(110) ++++ mg/dL [facility] Interpretation and review of laboratory results Abnormal [facility] Ketones, UA Negative Negative - 160(16) ++++ mg/dL [facility] Leukocytes, UA Negative Negative - 500+++ Duc/mcL [facility] Nitrite, UA Negative Negative - Positive [facility] pH, UA 5.5 5 - 9 [facility] Protein, UA Negative Negative - 1999(20) ++++ mg/dL [facility] Spec Grav, UA 1.01 1 - 1.03 [facility] Urobilinogen, UA 0.2 0.2 - 12 mg/dL [facility] PREG QUANT HCGon 025 HCG QUANTITATIVE 83 mIU/mL [facility] Comment on above: 5-50 0.2-1 WEEK 50-500 1-2 WEEKS 100-5,000 2-3 WEEKS 500-10,000 3-4 WEEKS 1,000-50,000 4-5 WEEKS 10,000-100,000 5-6 WEEKS 15,000-200,000 6-8 WEEKS 10,000-100,000 2-3 MONTHS [facility] Urine Cultureon 07-18-2024 Bacteria identified Cx Nom (U) >100,000 colonies/ml mixed bacterial skin contaminants 2 Days PERFORMED BY: [place] [address] PATHOLOGIST INTERNAL MEDICINE DOCTOR LOLITA BHANDARI M.D. Normal [facility] Comment on above: Performed By: #### C UU #### [address] Progress Noteson 03-28-2023 Electrical Lineman Authentication Interface Message Text Called the patient and received no answer. left with instructions to call [facility] clinic. Normal [facility] Anesthesia Postprocedure Linda luationon 03-22-2023 Electrical Lineman Authentication Interface Message Text Anesthesia Postoperative Assessment: Vital Signs (most recent): BP 127/85 Pulse 103 Temp 37.2 ???C (98.9 ???F) (Temporal) Resp 20 Ht 5' 4 (1.626 m) Wt 120 lb (54.4 kg) LMP 02/26/2023 (Approximate) SpO2 98% BMI 20.60 kg/m??? Anesthesia Post Evaluation Level of consciousness: awake Post-procedure exam normal. Body temperature, hydration status, PONV and pain evaluated and addressed. Pain management: adequate Hydration status: normal PONV:No nausea/vomiting reported Cardiopulmonary status stable Respiratory status: acceptable Cardiovascular status: acceptable ANESTHESIA NOTABLE EVENTS: No notable events documented. Normal [facility] Anesthesia Transfer Of Careo n 03-22-2023 Electrical Lineman Authentication Interface Message Text Patient taken to PACU. Patient was awake, comfortable and stable on arrival. Anesthesia Transfer of Care Note Past Medical History: Past Medical History: Diagnosis Date * Hearing deficit, left Sleep Apnea/Positive STOP-BANG: No Problem List: Patient Active Problem List: (none) - all problems resolved or deleted Past Surgical History: There is no previous surgical history on file. Allergies: Patient has no known allergies. Basic Operating Room Facts: Surgeon(s): Barby Mora DMD, MD Anesthesiologist: Lloyd Pitts MD CAA: Aletha Weinstein CAA; Martin York Anesthesia Student: Chris, Monica ALEX, TOOTH #1,16,17,32 Intraoperative Events: No acute event ASA: 2 EBL: Not documented Urine Not documented Lactated Ringers and NaCl 0.9%: Fluid Totals (Filter: LR and NaCl 0.9% Medications Shown) Medication Calculated Total lactated ringers iv infusion 500 mL / bags Cell Saver: Not documented Blood Volume Values: Blood Products None MTP Blood: MTP PRBC: Not documented MTP FFP: Not documented MTP PLT: Not documented MTP Cryo: Not documented MTP Whole Blood: Not documented Current Vasoactive Medications: {Vasoactive Medications: None Lines, Drains, Airways Peripheral IV Access: 03/22/23 1020 22 gauge Left Forearm (Active) Site Assessment WNL;Dressing intact 03/22/23 1019 Infusion Status Port #1 Infusing;Patent;Posi tive blood return 03/22/23 1019 Airway Insertion Details [REMOVED] Advanced Airway: ETT, Oral #6.5 (Removed) 03/22/23 1033 Pre-Oxygenation/ Induction: Mask Rapid Sequence Induction?: Mask Ventilation: Easy Blade size: Mac 3 Visualization: Grade 1 Airway Type: ETT, Oral Airway Size: #6.5 Post Insertion Assessment: Confirmation: Equal bilateral breath sounds, CO2 confirmed # Attempts >1: Special Equipment: Present on Admission?: Previously Removed / Not Present: Removal Reason: Not Removed at Discharge: Removed 03/22/23 1116 Location (cm) 20 03/22/23 1033 Measured from: Lips 03/22/23 1033 Secured via: Taped 03/22/23 1033 Site Assessment WNL 03/22/23 1033 All non-working IVs have been removed: N/A Laboratory Data: CBC (last 3 years, up to 5 values) None Basic Metabolic Panel None Basic Metabolic Panel None No results found for: INR No result for BNP LFT's (last 3 years, up to 5 values) None Arterial Blood Gases None Hand off Completed: Yes 1. The patient was identified. 2. Pertinent medical history was relayed. 3. A brief discussion was had about any pertinent surgical/ procedural issues. 4. Intraoperative/ anesthetic management issue and concerns were discussed. 5. Plans for the early post-operative period relayed. 6. An opportunity for questions and acknowledgment of understanding of the report was received. MARTIN YORK Normal [facility] Blood Attestationon 03-22-20 Electrical Lineman Authentication Interface Message Text Blood Attestation: ATTESTATION OF INFORMED CONSENT FOR BLOOD: The transfusion of blood and/or blood components were discussed with the patient and/or legal branch sales and service representative. The risks, benefits and alternatives were reviewed. Questions regarding blood transfusions were answered. The patient /or the patient's legal branch sales and service representative agree with the plan for transfusion of blood and/or blood components. Normal [facility] OP Noteon 03-22-2023 Electrical Lineman Authentication Interface Message Text [facility] Division of alumni coordinator [address] [place] [address] [place] [address] OPERATIVE NOTE Name: Rand Jackson MR#: [id number] ENC#: Data Unavailable Surgical Case #: Data Unavailable Date of Procedure: 03/22/2023 ? PREOPERATIVE DIAGNOSIS: Abnormal tooth eruption (Primary Diagnosis) [[id number]] Pain following oral surgery [[id number]] ? POSTOPERATIVE DIAGNOSIS: Abnormal tooth eruption (Primary Diagnosis) [[id number]] Pain following oral surgery [[id number]] OPERATION: FULL BONY IMPACTION [D7240] ? ATTENDING SURGEON: Barby Mora DMD, MD ? FIRST SURGEON: Barby Mora DMD, MD ? SECOND SURGEON: Francesca Mcrae DDS ? ANESTHESIA: General anesthesia via oral endotracheal tube intubation supplemented with 17 mL of 1% lidocaine with 1:100,000 epinephrine ? SPECIMENS: None ? ESTIMATED BLOOD LOSS: 5 mL. ? IV FLUIDS: 500 mL. ? FINDINGS: No significant findings. ? DESCRIPTION OF OPERATION: The patient was taken to the operating room on a cart and transferred onto the operating room table under thiKickboard power. The patient was then placed in the supine position. A time-out was conducted to confirm correct patient and procedure to be performed. Anesthesia team, Surgical staff and Nursing team all agreed on correct patient and laterality of the procedure. At this time care of the patient was transferred over to the Anesthesia Service for induction of general anesthetic and intubation. The patient was intubated via oral endotracheal tube intubation. The tube was secured and care of the patient was transferred back to the Oral Maxillofacial Surgery service for continuation of the procedure. The patient was then prepped and draped in usual sterile fashion and the oral cavity was suctioned clear and a throat pack was placed deep in theoropharynx. Teeth numbers #'s 1,16,17,32 were full bony impactions. Surgical access and exposure was accomplished by a buccal FTF 45 hockey stick incision. Alveolar bone removal was accomplished with a [employer] surgical drill and irrigation. Teeth #17, 32 were sectioned into 4 pieces. The teeth and/or fragments were removed by elevator technique. Surgical debris and remaining epithelial fragments were removed by rongeurs. The wounds were irrigated with sterile saline. IANs not visualized and lingual plates intact bilaterally. Mucogingival wound closure utilized 3-0 Chromic interrupted sutures at site #17, 32. The oral cavity was suctioned clear and the throat pack was removed. After wound closure was accomplished care of the patient was transferred back to the Anesthesia Service for emergence from the general anesthetic and extubation. The patient was extubated without incidence and transferred back to a cart where he was taken to the Post Anesthesia Care Unit for further monitoring. The patient was stable during the entire procedure. There were no complications. I, Dr. Mora, was present for all critical parts of the procedure. ? ? ? Barby Mora DMD, MD Normal [facility] URINE HCG-IN OFFICEOrdered B y: Negro Carver on 03-22-2023 HCG ( test) Ql (U) Negative Negative [facility] Interpretation and review of laboratory results Normal [facility] Negative Internal Control Negative Negative [facility] Positive Internal Control Positive Positive [facility] Anesthesia Preprocedure Eval uationon 03-21-2023 Electrical Lineman Authentication Interface Message Text ASA: 2 NPO status: Greater than 8 hours Past Medical History and Review of Systems Pulmonary (+) asthma, a smoker Comment: Marijuana abuser Dental - negative ROS Endo - negative ROS 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 PROBLEM LIST: Patient Active Problem List: Abnormal tooth eruption (K00.6) Physical Exam Airway Mallampati: II TM distance: Adequate Micrognathia: Not present Jaw opening: Adequate Neck flexion: Adequate Dental PE (+) intact Pulmonary - pulmonary exam normal Comment: Chest clear to auscultation bilaterally Cardiovascular - cardiovascular exam normal Comment: RRR with S1S2; no murmurs, gallops, or rubs Neuro - neurological exam normal Comment: Awake, alert, oriented, No motor deficits and sensation grossly intact Plan Anesthesia plan: general; (ETT) Anesthesia risks / alternatives discussed pre-op Questions answered / anesthesia plan accepted Past medical history, surgical history, allergies, and medications reviewed. Pertinent laboratory tests, EKG, imaging, and consults reviewed and I have personally seen and evaluated the patient, repeating noland portions of the history and physical examination. Attestation: Anesthesia options were discussed with the patient and/or legal branch sales and service representative. The risks, benefits and alternatives were reviewed. Questions regarding anesthesia were answered. Patient and/or legal branch sales and service representative knows such anesthetics and procedures may be performed by Resident physicians, Certified Anesthesiologist Assistants, or Certified Nurse Anesthetists under the supervision of a physician. The patient /or the patient's legal branch sales and service representative agree with the plan for anesthesia. Normal [facility] PSE Call Mahsa AND Darryl 3 Electrical Lineman Authentication Interface Message Text Telephone History Rand Jackson, [id number] 03/12/2023 Patient was identified by name and date of . Needs: Physical, Neck Circumference, and BHCG on DOS. If the patient becomes ill prior to procedure or surgery, they are to call their provider or surgeon's office directly. 17 year old 121 lbs 5' 4 Date of Surgery: 03/22 Surgeon: Abby Type of Surgery: EXTRACTION, TOOTH HISTORY OF PRESENT ILLNESS: Telephone history prior to the surgery at [facility], [address] [place] [address], enter through the main entrance, check-in at the operating room desk, 1st floor. STOP-BANG Row Name 03/12/23 1040 History of sleep apnea? No Snoring No Tired/Fatigued No Observed Apnea No Pressure: Hypertension No BMI greater than 35 0 Age greater than 50 0 Gender male? 0 Score 0 EXERCISE CAPACITY: 4-10 mets ALLERGIES: Patient has no known allergies. PREVIOUS ANESTHETIC EXPERIENCES AND INTUBATION HISTORY: No previous anesthetic complication r/t some type of testing in the past FAMILY HISTORY OF ANESTHETIC COMPLICATIONS: No PAST MEDICAL HISTORY: Past Medical History: Diagnosis Date Hearing deficit, left PROBLEM LIST: Patient Active Problem List: Abnormal tooth eruption [K00.6] REVIEW OF SYSTEMS: Eyes/Ears: Eye Glasses and Hearing Deficit - left Teeth Negative Now scheduled for EXTRACTION, TOOTH Pulmonary: Vapes Denies SOB, wheezes, fever, chills, increased sputum, or general malaise. Cardiovascular: Negative Gastrointestinal: Negative Renal/Genitourinary: Negative Musculoskeletal: Negative Endocrine: Negative Hematologic: Negative Neurologic: Negative Psychiatric: Depression, anxiety Gynecologic:Regular Menses Constitutional:Negat rashid PAST SURGICAL HISTORY: History reviewed. No pertinent surgical history. SOCIAL HISTORY: Social History Socioeconomic History Marital status: Single Tobacco Use Smoking status: Every Day Types: E-cigarette Smokeless tobacco: Never Substance and Sexual Activity Alcohol use: Not Currently Drug use: Yes Types: Marijuana/THC PAIN ASSESSMENT: Severity: 0 Location: N/A LABORATORY DATA: Type AND Screen None CBC (last 3 years, up to 5 values) None Basic Metabolic Panel None Basic Metabolic Panel None PT/PTT/INR (last 3 years, up to 5 values) None Arterial Blood Gases None No result for BNP LFT's (last 3 years, up to 5 values) None TESTS REVIEWED: CXRay: No Chest x-ray found EKG: Last ECG Date: Not Found ECHO: Last Echocardiogram: none found going back to 09/05/2011 No results found for this basename: LVEF Stress test date: Last StressTest: none found going back to 09/05/2011 CURRENT MEDICATION LIST: Current Outpatient Medications Medication Sig Dispense Refill sertraline (ZOLOFT) 50 MG tablet Take 50 mg by mouth daily. No current facility-administere d medications for this visit. CURRENT MEDICATIONS: Aspirin: No NSAIDS: No Other Antiplatelet Medication: No Anticoagulants: No Steroids: No PATIENT MEDICATION INSTRUCTIONS: On the morning of your surgery please take only the following medications, with a small sip of water: sertraline (ZOLOFT) 50 MG tablet DAY OF SURGERY NOTES: For early a.m. arrival times, The patient is to have nothing to eat or drink after midnight. For later arrival times, No solid food after midnight, the day before procedure or surgery. Per anesthesia's fasting protocol: you may have clear liquids only, the morning of your procedure or surgery. You MUST stop drinking clear liquids 2 hours before your scheduled procedure or surgery time. Iwona Loomis RN Time Spent Performing this Telephone History: 20 with call back Normal [facility] Patient Instructionson 02-05 Electrical Lineman Authentication Interface Message Text Oral Surgery General anesthesia instructions You have chosen general anesthesia for your treatment. You have the right to be informed about this so that you can decide whether to have it or not after knowing the risks and benefits. These common procedures are considered quite safe. Nevertheless, all procedures have some risks. They include the following and others: 1. Discomfort, swelling or bruising where the drugs are placed into a vein. 2. Vein irritation, called phlebitis, where the drugs are placed into a vein. Sometimes this may grow to a level of discomfort or disability where it may be difficult to move your arm or hand. Sometimes medication or other treatment may be needed. 3. Nerves travel next to the blood vessels where the drugs are placed into a vein. If the needle hits a nerve or if drugs or fluid leaks out of the vessel around a nerve, I may have numbness or pain in the nerve where it runs along the arm. Usually the numbness or pain goes away, but in some cases, it may be permanent 4. Allergic reactions (previously unknown) to any of the medications used. 5. Nausea and vomiting, although not common, are possible unfortunate side effects. Bed rest, and sometimes medications, may be required for relief. 6. General anesthesia is a serious medical procedures and, whether given in a hospital or office, carry the risk of brain damage, stroke, heart attack or . YOUR OBLIGATIONS: 7. Because anesthetic or sedative medications (including oral premedication) causes drowsiness that lasts for some time, you MUST be accompanied by a responsible adult to drive you to and from surgery, and stay with you for several hours until you are recovered sufficiently to care for yourself. Sometimes the effects of the drugs do not wear off for 24 hours. 8. During recovery time (normally 24 hours), you should not drive, operate complicated machinery or devices or make important decisions such as signing documents, etc. 9. You must have a completely empty stomach. It is vital that you have NOTHING TO EAT OR DRINK for eight (8) hours prior to your treatment. TO DO OTHERWISE MAY BE LIFE-THREATENING. 10. Unless instructed otherwise, it is important that U take any regular medications (high blood pressure, antibiotics, etc.) or any medicines given to me by my surgeon using only a small sip of water. 11. Please do not bring babies on the day of surgery. 12. Do not wear: nail finnish, contact lenses, jewelry. 13. Do wear: loose clothes with short sleeves, long pants, shoes (no high heals). 14. Please call our office to cancel your appointment if you feel sick. Following is the address to the surgery center: [facility] [address] [place] [address]. [place] [id number] Normal [employer] Noteson 02-05-2023 Electrical Lineman Authentication Interface Message Text Normal [facility] Electrical Lineman Authentication Interface Message Text Attestation with edits by Barby Mora DMD, MD at 02/19/2023 2:09 PM Teaching Physician Note: I saw and evaluated the patient. I personally obtained the noland and critical portions of the history and physical exam. I reviewed the resident's documentation and discussed the patient with the resident. I agree with the resident's medical decision making as documented in the resident's note. Barby Mora DMD, MD OMFS PATIENT VISIT CHIEF COMPLAINT: [place] Te[place] HISTORY OF PRESENT ILLNESS: 17 yo F with sig pmhx of left ear deafness, daily vaping presents to clinic for evaluation of #1, 16, 17, and 32. Patient denies fever, chills, odynophagia, dysphagia, and shortness of breath. Pt endorses waxing and waning pain originating from the teeth listed on the referral that limits ability to chew, function normally, and perform oral hygiene. PAST MEDICAL HISTORY: 17 yrs old Unavailable female No past medical history on file. There is no problem list on file for this patient. MEDICATIONS: No current outpatient medications on file. No current facility-administere d medications for this visit. ALLERGIES: Patient has no allergy information on record. SURGICAL HX: No past surgical history on file. SOCIAL HX: Daily Vaping CLINICAL EXAMINATION Extraoral examination: No significant findings No s/s of infection, redness or tenderness to palpation No facial asymmetry or swelling No appreciable LAD Range of motion WNL CN V and VII intact Intraoral examination: No s/s of infection or tenderness to palpation Moist, pink mucosa Oropharynx clear No pathological soft lesions appreciated Oral cancer screen negative Occlusion stable Oral hygiene Fair #1, 16 ,17, and 32 not visible RADIOGRAPHIC INTERPRETATION: [employer] Film from referring provider #1, 16 ,17, and 32 fully bony impacted DIAGNOSIS: Impacted wisdom teeth TREATMENT: 17 yo F with sig pmhx of left ear deafness, daily vaping presents to clinic for evaluation of #1, 16, 17, and 32. Patient is a candidate for extractions under GA at due to medical history. Reviewed procedure and complications associated with extractions ,including treatment options and no treatment. Opportunity given to ask all desired questions. Pertinent and more common complications of extractions discussed with the patient; pain, swelling, bruising, bleeding, infection (that may require further treatment such as hospitalizations), possible permanent numbness of the tongue, gums, teeth, lip, and chin, injury to adjacent structures (tooth, lip, cheek, jaw bone), damage to adjacent teeth, development of permanent TMJ symptoms/dysfunction , jaw fracture at time of surgery or afterwards, decision to leave root tips behind, displacement of tooth (or portion of) into adjacent spaces (such as sinus, floor of mouth, throat) and the development of sinus symptoms. Complications are not limited to the above and may include others that are less common. PLAN: EXT #1, 16 ,17, and 32 under GA at Madi Hartmann DDS Normal [facility] Vital Signs Date Time Vital Sign Value Performing Clinician Faci lity 04-23-2025 15:28-0400 Body weight 48.53 kg [facility] DO Work Phone: [facility] 07-22-2024 15:28-0400 Diastolic blood pressure 62 mm[Hg[facility] 07-22-2024 15:28-0400 Systolic blood pressure 90 mm[Hg] [facility] DO Work Phone: [facility] 03-22-2023 12:00-0500 Diastolic blood pressure 84 mm[Hg] Barby Mora DMD, MD Work Phone: [facility] 03-22-2023 12:00-0500 Heart rate 85 /min Barby Mora DMD, MD Work Phone: [facility] 03-22-2023 12:00-0500 Respiratory rate 14 /min Barby Mora DMD, MD Work Phone: [facility] 03-22-2023 12:00-0500 SaO2% (BldA) [Mass fraction] 100 % Barby Mora DMD, MD Work Phone: [facility] 03-22-2023 12:00-0500 Systolic blood pressure 134 mm[Hg] Barby Mora DMD, MD Work Phone: [facility] 03-22-2023 11:21-0500 Body temperature 98.91 [degF] Barby Mora DMD, MD Work Phone: [facility] 03-22-2023 10:04-0500 Body height 162.6 cm Barby Mora DMD, MD Work Phone: [facility] 03-22-2023 10:04-0500 Body mass index (BMI) [Percentile] Per age and sex 38.42 % Barby Mora DMD, MD Work Phone: [facility] 03-22-2023 10:04-0500 Body mass index (BMI) [Ratio] 20.6 kg/m2 Barby Mora DMD, MD Work Phone: [facility] 03-22-2023 10:04-0500 Body weight 54.43 kg Barby Mora DMD, MD Work Phone: [facility] 03-12-2023 10:00-0500 Body height 162.6 cm Iwona Loomis RN [facility] 03-12-2023 10:00-0500 Body mass index (BMI) [Percentile] Per age and sex 40.85 % Iwona Loomis RN [facility] 03-12-2023 10:00-0500 Body mass index (BMI) [Ratio] 20.77 kg/m2 Iwona Loomis RN [facility] 03-12-2023 10:00-0500 Body weight 54.88 kg Iwona Loomis RN [facility] Encounters Encounter Date Encounter Type Care Provider Facility Start: 10-22-2024 End: 10-22-2024 ambulatory Shabbir Kraus [facility] Work Phone: Start: 10-22-2024 End: 10-22-2024 Departed Referred Shabbir Kraus MD -[facility] Start: 07-29-2024 End: 07-29-2024 Clinisync Result Encounter Vasile Oswald DO Work Phone: [facility] Unsolicited Start: 07-29-2024 End: 07-29-2024 Clinisync Result Encounter Vasile Oswald DO Work Phone: [facility] Unsolicited Start: 07-22-2024 End: 07-22-2024 ambulatory VASILE OSWALD Not Available Start: 07-22-2024 End: 07-22-2024 Office outpatient visit 15 minutes Vasile Oswald DO Work Phone: [facility] Comment on above: Hospital discharge f ollow-up; Miscarriage, threatened, early Start: 07-22-2024 End: 07-22-2024 Bamboo flowsheet Vasile Oswald DO Work Phone: [facility] Start: 07-22-2024 End: 07-22-2024 Bamboo flowsheet Vasile Oswald DO Work Phone: [facility] Start: 07-21-2024 End: 07-21-2024 Clinisync Result Encounter Vasile Henriquezo DO Work Phone: [facility] Unsolicited Start: 07-21-2024 End: 07-21-2024 Clinisync Result Encounter Vasile Henriquezo DO Work Phone: [facility] Unsolicited Start: 07-18-2024 End: 07-18-2024 ambulatory Haley Dickerson [facility] Work Phone: Start: 07-18-2024 End: 07-18-2024 Departed Referred Haley Dickerson MD Work Phone: [facility] Start: 03-28-2023 ambulatory UNKNOWN PROVIDER Facili ty:[facility] Start: 03-22-2023 End: 03-22-2023 ambulatory BARBY MORA Facility:[facility] Start: 03-22-2023 End: 03-22-2023 Subsequent hospital visit by physician Barby Mora DMD, MD Work Phone: [address] OR Comment on above: Abnormal tooth erupt ion (Primary Dx); Pain following oral surgery Start: 03-12-2023 End: 03-12-2023 Preprocedural examination done Iwona Loomis RN [facility] Start: 03-12-2023 End: 03-12-2023 Telephone encounter Iwona Loomis RN [facility] Comment on above: Arrived Start: 03-12-2023 ambulatory UNKNOWN PROVIDER Facili ty:[facility] Start: 03-12-2023 Encounter for other preprocedural examination UNKNOWN PROVIDER [facility] Start: 02-07-2023 Letter encounter Barby Peraza i, DMD, MD Work Phone: [facility] Oral Surgery Start: 02-05-2023 ambulatory UNKNOWN PROVIDER Facili ty:[facility] Start: 02-05-2023 End: 02-05-2023 Patient encounter procedure Barby Mora DMD, MD Work Phone: [facility] Oral Surgery Comment on above: Abnormal tooth erupt ion (Primary Dx) Start: 07-31-2022 Transcribe Orders Yu spence DDS Work Phone: [facility] Physician Referral Service Procedures Date Procedure Procedure Detail Performing Clinician Start: 07-29-2024 [facility] PREG QUANT HCG Core y Oswald DO Work Phone: Start: 07-22-2024 Urnls dip stick/tabl et rgnt non-auto w/o micrscp Vasile Oswald DO Work Phone: Start: 07-21-2024 [facility] PREG QUANT HCG Core y Oswald DO Work Phone: Start: 03-22-2023 Urine test visual color cmprsn meths Madi Shahbaz DDS Work Phone: Plan of Treatment Date Care Activity Detail Author Start: 08-31-2026 Tetanus,Diptheria,Pe rtus sis Vaccine (7 - Td or Tdap) Tetanus,Diptheria,Pertu ssis Vaccine (7 - Td or Tdap) [facility] Start: 10-22-2024 Urine culture [facility] Start: 10-22-2024 Bacteria identified in Urine by Culture Urine Culture [facility] Start: 07-31-2024 End: 07-31-2024 ambulatory 07/31/2024 11:00 AM EDT Initial [facility] [address] [place] [address] [facility] Start: 07-31-2024 End: 07-31-2024 Professional / ancillary services management 07/31/2024 10:30 AM EDT Ancillary Procedure [facility] [address] [place] [address] [facility] Start: 07-22-2024 End: 07-22-2024 Patient encounter procedure 07/22/2024 3:00 PM EDT Office Visit [facility] [address] [place] [address] Vasile Akers, [address] [place] [address] [facility] Start: 07-18-2024 Bacteria identified in Urine by Culture Urine Culture [facility] Start: 07-18-2024 Urine culture [facility] Start: 03-28-2023 End: 03-28-2023 Patient encounter procedure [facility] Oral Surgery Start: 03-22-2023 End: 03-22-2023 Admission to same day surgery center [facility] Comment on above: EXTRACTION, TOOTH Start: 03-22-2023 End: 03-22-2023 EXTRACTION, TOOTH [facility] Start: 03-22-2023 Subsequent hospital visit by physician [facility] Start: 03-12-2023 End: 03-12-2023 Nursing evaluation of patient and report 03/12/2023 10:30 AM EST Nurse Visit [facility] [address] [place] [address] Iwona Loomis, RN [address] [place] [address] [facility] Start: 11-30-2022 Influenza vaccination Influenza Vacc ine (#1) [facility] Start: 2022 Hepatitis C screening Hepatitis C An tibody [facility] Start: 2022 Screening for Chlamy deejay trachomatis STI Screening (Age 18-24) [facility] Start: 2022 Tetanus + diphtheria + acellular pertussis vaccine (product) Tdap Booster [facility] Start: 2022 Vision Test (18 yrs,once) Vision Test (18 yrs,once) [facility] Start: 12-30-2021 Influenza vaccination Influenza Vacc ine (#1) [facility] Start: 2020 Meningococcal B (Bexsero,OMV) Vaccine (Optional,16-23 years) Meningococcal B (Bexsero,OMV) Vaccine (Optional,16-23 years) [facility] Start: 2020 Meningococcal B (Bexsero,OMV) Vaccine (Optional,16-23 years) (#1) Meningococcal B (Bexsero,OMV) Vaccine (Optional,16-23 years) (#1) [facility] Start: 2020 Meningococcal Conjug ate (MCV4,ACWY) Vaccine (1 - 2-dose series) Meningococcal Conjugate (MCV4,ACWY) Vaccine (1 - 2-dose series) [facility] Start: 07-03-2019 HIV screening HIV Test [facility] Start: 07-03-2015 Vaccination for leela n papillomavirus Human Papilloma (HPV) Vaccine (1 - 2-dose series) [facility] Start: 2014 Hearing Test (10-18 yrs,once) Hearing Test (10-18 yrs,once) [facility] Start: 2013 Lipid panel Lipid Screening [facility] Start: 07-03-2011 Tetanus,Diptheria,Pe rtus sis Vaccine (1 - Tdap) Tetanus,Diptheria,Pertu ssis Vaccine (1 - Tdap) [facility] Start: 2005 Hepatitis A (HAV) Vaccine (1 of 2 - 2-dose series) Hepatitis A (HAV) Vaccine (1 of 2 - 2-dose series) [facility] Start: 2005 Vavrhsa-ariit-pncfct a vaccination Measles,Mumps,Rubella (MMR) Vaccine (1 of 2 - Standard series) [facility] Start: 2005 Varicella vaccination Varicell a Vaccine (1 of 2 - 2-dose childhood series) [facility] Start: 01-01-2005 COVID-19 Vaccine (#1) COVID-19 Vacci ne (#1) [facility] Start: 2004 Hepatitis B vaccination Hepati tis B (HBV) Vaccine (1 of 3 - 3-dose series) [facility] EXTRACTION, TOOTH EXTRACTION, TO OTH Routine scheduled Abnormal tooth [facility] End: 07-22-2025 hCG, quantitative, hCG, quantitative, Lab Routine Miscarriage, threatened, early 4 Occurrences starting 07/22/2024 until 07/22/2025 [facility] Work Phone: Comment on above: 4 Occurrences starti ng 07/22/2024 until 07/22/2025 removal of impacted tooth - completely bony FULL BONY IMPACTION Procedures Routine Abnormal tooth eruption Ordered: 03/22/2023 [facility] Work Phone: Comment on above: Ordered: 03/22/2023 Immunizations Immunization Date Immunization Notes Care Provider Silva biswas 07-24-2021 meningococcal polysa ccharide (groups A, C, Y and W-135) diphtheria toxoid conjugate vaccine (MCV4P) Barby Mora DMD, MD Work Phone: [facility] 05-30-2018 Human Papillomavirus 9-valent vaccine Barby Mora DMD, MD Work Phone: [facility] 08-31-2016 Human Papillomavirus 9-valent vaccine Barby Mora DMD, MD Work Phone: [facility] 08-31-2016 meningococcal polysa ccharide (groups A, C, Y and W-135) diphtheria toxoid conjugate vaccine (MCV4P) Barby Mora DMD, MD Work Phone: [facility] 08-31-2016 tetanus toxoid, redu audrey diphtheria toxoid, and acellular pertussis vaccine, adsorbed Barby Mora DMD, MD Work Phone: [facility] 09-02-2009 poliovirus vaccine, inactivated Babry Mora DMD, MD Work Phone: [facility] 08-20-2008 measles, mumps and r ubella virus vaccine Barby Mora DMD, MD Work Phone: [facility] 08-20-2008 tetanus toxoid, redu audrey diphtheria toxoid, and acellular pertussis vaccine, adsorbed Barby Mora DMD, MD Work Phone: [facility] 08-20-2008 varicella virus vaccine Saw Mora DMD, MD Work Phone: [facility] 02-20-2008 influenza virus vacc ine, live, attenuated, for intranasal use Barby Mora DMD, MD Work Phone: [facility] 02-20-2008 influenza virus vacc ine, unspecified formulation Barby Mora DMD, MD Work Phone: [facility] 02-24-2007 influenza, seasonal, injectable, preservative free Barby Mora DMD, MD Work Phone: [facility] 11-07-2006 hepatitis A vaccine, pediatric/adolescent dosage, 2 dose schedule Barby Mora DMD, MD Work Phone: [facility] 05-09-2006 hepatitis A vaccine, pediatric/adolescent dosage, 2 dose schedule Barby Mora DMD, MD Work Phone: [facility] 10-03-2005 diphtheria, tetanus toxoids and acellular pertussis vaccine, 5 pertussis antigens Barby Mora DMD, MD Work Phone: [facility] 10-03-2005 haemophilus influenz ae type b vaccine, PRP-T conjugate Barby Mora DMD, MD Work Phone: [facility] 10-03-2005 measles, mumps and r ubella virus vaccine Barby Mora DMD, MD Work Phone: [facility] 10-03-2005 pneumococcal conjuga te vaccine, 7 valent Barby Mora DMD, MD Work Phone: [facility] 10-03-2005 varicella virus vaccine Saw Mora DMD, MD Work Phone: [facility] 01-02-2005 DTaP-hepatitis B and poliovirus vaccine Barby Mora DMD, MD Work Phone: [facility] 01-02-2005 haemophilus influenz ae type b vaccine, PRP-T conjugate Barby Mora DMD, MD Work Phone: [facility] 01-02-2005 pneumococcal conjuga te vaccine, 7 valent Barby Mora DMD, MD Work Phone: [facility] 2004 DTaP-hepatitis B and poliovirus vaccine Barby Mora DMD, MD Work Phone: [facility] 2004 haemophilus influenz ae type b vaccine, PRP-T conjugate Barby Mora DMD, MD Work Phone: [facility] 2004 pneumococcal conjuga te vaccine, 7 valent Barby Mora DMD, MD Work Phone: [facility] 2004 DTaP-hepatitis B and poliovirus vaccine Barby Mora DMD, MD Work Phone: [facility] 2004 haemophilus influenz ae type b vaccine, PRP-T conjugate Barby Mora DMD, MD Work Phone: [facility] 2004 pneumococcal conjuga te vaccine, 7 valent Barby Mora DMD, MD Work Phone: [facility] Payers Date Payer Category Payer Self-pay 2023 Medicaid (Managed Care) [employer] [id number] 2018 Unknown [id number] 2018 Unknown [id number] 2004 Unknown [id number] 2004 Unknown [id number] 2004 Unknown [id number] 2004 Unknown [id number] 2004 Unknown [id number] Social History Date Type Detail Facility Tobacco smoking status TXIS Tobacco smoking consumption unknown [facility] Work Phone: Start: 2004 [facility] At [facility] Gender identity Not on file [facility] Start: 03-12-2023 Tobacco smoking status NHIS [facility]okes tobacco [facility] History of tobacco use Smoker (finding) [facility] Start: 03-12-2023 Tobacco use and exposure Smokeless tobacco non-user [facility] Start: 03-12-2023 Alcohol intake Ex-drinker (finding) [facility] Start: 07-19-2024 Sex Female (finding) [facility] Start: 2004 Sex Assigned At Female F [facility] Clinical Notes 02-05-2023 to 07-22-2024 Sissy Carias LPN - 07/22/2024 3:00 PM EDTOP Note - Baryb Mora DMD, MD - 03/22/2023 10:44 AM ESTOP Note - Barby Mora DMD, MD - 03/22/2023 10:44 AM ESTDischarge Instructions Note Date & Type Note Facility 07-22-2024 History of Presen t illness Narrative Reason for Appointment: Patient ID: Rand Jackson is a 19 y.o. female who presents for ER Follow-up Patient presents today for Acute Visit. MEDICATIONS Current Outpatient Medications Medication Instructions sertraline (Zoloft) 50 MG tablet TAKE 1 TABLET BY MOUTH ONCE DAILY IN THE MORNING FOR 30 DAYS ALLERGIES No Known Allergies PROBLEMS Active Ambulatory Problems Diagnosis Date Noted No Active Ambulatory Problems Resolved Ambulatory Problems Diagnosis Date Noted No Resolved Ambulatory Problems No Additional Past Medical History HISTORY PAST MEDICAL HISTORY SOCIAL HISTORY No past medical history on file. Social History Tobacco Use Smoking status: Not on file Smokeless tobacco: Not on file Substance Use Topics Alcohol use: Not on file Drug use: Not on file FAMILY HISTORY No family history on file. SURGICAL HISTORY History reviewed. No pertinent surgical history. REVIEW OF SYSTEMS Review of Systems: Review of Systems Constitutional: Negative. HENT: Negative. Eyes: Negative. Respiratory: Negative. Cardiovascular: Negative. Gastrointestinal: Negative. Genitourinary: Negative. Musculoskeletal: Negative. Skin: Negative. Neurological: Negative. All other systems reviewed and are negative. Hematological: Negative. Endocrine: Negative. Allergic/Immunologic: Negative. OBJECTIVE Objective: Physical Exam Constitutional: Appearance: Normal appearance. She is well-developed. Cardiovascular: Rate and Rhythm: Normal rate and regular rhythm. Pulmonary: Effort: Pulmonary effort is normal. Breath sounds: Normal breath sounds. Abdominal: General: Bowel sounds are normal. There is no distension. Palpations: Abdomen is soft. Tenderness: There is no abdominal tenderness. There is no guarding or rebound. Musculoskeletal: General: No swelling. Normal range of motion. Right lower leg: No edema. Left lower leg: No edema. Neurological: Mental Status: She is alert and oriented to person, place, and time. Skin: General: Skin is warm and dry. Psychiatric: Mood and Affect: Mood normal. Behavior: Behavior normal. Vitals and nursing note reviewed. Exam conducted with a local sales manager present. Vitals: There is no height or weight on file to calculate BMI. BP: 90/62 Patient's last menstrual period was 05/30/2024 (approximate). ASSESSMENT & PLAN ICD-10-CM 1. Hospital discharge follow-up Z09 2. Miscarriage, threatened, early O20.0 POCT urinalysis dipstick manually resulted POCT , urine manually resulted Patient presents today to follow up after a recent miscarriage. I have discussed HCG lab levels and miscarriage with patient in detail. Patient was given an additional standing QUANT level lab order to have obtained and will continue to have labs drawn until value reads less than 5. Patient has been advised to wait a full cycle until trying to conceive again, patient voiced understanding, and will call when so office can call in progesterone suppositories. Follow Up: As needed Documented by Sissy Carias LPN on behalf of: Vasile Akers DO documented in this encounter [facility] 03-22-2023 Note Surgical Attestation : I have reviewed the patient's History and Physical Examination. I have personally seen and evaluated the patient, repeating noland portions. There is no significant interval change. Surgery is still indicated. Yes Consent reviewed and signed by patient/family: Yes Operative site verified and marked: n/a Francesca Mcrae DDS [facility] 03-22-2023 Surgery Surgical operation note [facility] Division of alumni coordinator [address] [place] [address] Dr. [place] [address] OPERATIVE NOTE Name: Rand Jackson MR#: [id number] ENC#: Data Unavailable Surgical Case #: Data Unavailable Date of Procedure: 03/22/2023 ? PREOPERATIVE DIAGNOSIS: Abnormal tooth eruption (Primary Diagnosis) [[id number]] Pain following oral surgery [[id number]] ? POSTOPERATIVE DIAGNOSIS: Abnormal tooth eruption (Primary Diagnosis) [[id number]] Pain following oral surgery [[id number]] OPERATION: FULL BONY IMPACTION [[id number]] ? ATTENDING SURGEON: Barby Mora DMD, MD ? FIRST SURGEON: Barby Mora DMD, MD ? SECOND SURGEON: Francesca Mcrae DDS ? ANESTHESIA: General anesthesia via oral endotracheal tube intubation supplemented with 17 mL of 1% lidocaine with 1:100,000 epinephrine ? SPECIMENS: None ? ESTIMATED BLOOD LOSS: 5 mL. ? IV FLUIDS: 500 mL. ? FINDINGS: No significant findings. ? DESCRIPTION OF OPERATION: The patient was taken to the operating room on a cart and transferred onto the operating room table under [employer] power. The patient was then placed in the supine position. A time-out was conducted to confirm correct patient and procedure to be performed. Anesthesia team, Surgical staff and Nursing team all agreed on correct patient and laterality of the procedure. At this time care of the patient was transferred over to the Anesthesia Service for induction of general anesthetic and intubation. The patient was intubated via oral endotracheal tube intubation. The tube was secured and care of the patient was transferred back to the Oral Maxillofacial Surgery service for continuation of the procedure. The patient was then prepped and draped in usual sterile fashion and the oral cavity was suctioned clear and a throat pack was placed deep in the oropharynx. Teeth numbers #'s 1,16,17,32 were full bony impactions. Surgical access and exposure was accomplished by a buccal FTF 45 hockey stick incision. Alveolar bone removal was accomplished with a [employer] surgical drill and irrigation. Teeth #17, 32 were sectioned into 4 pieces. The teeth and/or fragments were removed by elevator technique. Surgical debris and remaining epithelial fragments were removed by rongeurs. The wounds were irrigated with sterile saline. IANs not visualized and lingual plates intact bilaterally. Mucogingival wound closure utilized 3-0 Chromic interrupted sutures at site #17, 32. The oral cavity was suctioned clear and the throat pack was removed. After wound closure was accomplished care of the patient was transferred back to the Anesthesia Service for emergence from the general anesthetic and extubation. The patient was extubated without incidence and transferred back to a cart where he was taken to the Post Anesthesia Care Unit for further monitoring. The patient was stable during the entire procedure. There were no complications. I, Dr. Mora, was present for all critical parts of the procedure. ? ? ? Barby Mora DMD, MD [facility] 03-22-2023 Miscellaneous Notes [facility] Division of alumni coordinator [address] [place] [address] Dr. [place] [id number] OPERATIVE NOTE Name: Rnad Jackson MR#: [id number] ENC#: Data Unavailable Surgical Case #: Data Unavailable Date of Procedure: 03/22/2023 ? PREOPERATIVE DIAGNOSIS: Abnormal tooth eruption (Primary Diagnosis) [721100] Pain following oral surgery [[id number]] ? POSTOPERATIVE DIAGNOSIS: Abnormal tooth eruption (Primary Diagnosis) [300669] Pain following oral surgery [[id number]] OPERATION: FULL BONY IMPACTION [D7240] ? ATTENDING SURGEON: Barby Mora DMD, MD ? FIRST SURGEON: Barby Mora DMD, MD ? SECOND SURGEON: Francesca Mcrae DDS ? ANESTHESIA: General anesthesia via oral endotracheal tube intubation supplemented with 17 mL of 1% lidocaine with 1:100,000 epinephrine ? SPECIMENS: None ? ESTIMATED BLOOD LOSS: 5 mL. ? IV FLUIDS: 500 mL. ? FINDINGS: No significant findings. ? DESCRIPTION OF OPERATION: The patient was taken to the operating room on a cart and transferred onto the operating room table under [facility] own power. The patient was then placed in the supine position. A time-out was conducted to confirm correct patient and procedure to be performed. Anesthesia team, Surgical staff and Nursing team all agreed on correct patient and laterality of the procedure. At this time care of the patient was transferred over to the Anesthesia Service for induction of general anesthetic and intubation. The patient was intubated via oral endotracheal tube intubation. The tube was secured and care of the patient was transferred back to the Oral Maxillofacial Surgery service for continuation of the procedure. The patient was then prepped and draped in usual sterile fashion and the oral cavity was suctioned clear and a throat pack was placed deep in the oropharynx. Teeth numbers #'s 1,16,17,32 were full bony impactions. Surgical access and exposure was accomplished by a buccal FTF 45 hockey stick incision. Alveolar bone removal was accomplished with a [employer] surgical drill and irrigation. Teeth #17, 32 were sectioned into 4 pieces. The teeth and/or fragments were removed by elevator technique. Surgical debris and remaining epithelial fragments were removed by rongeurs. The wounds were irrigated with sterile saline. IANs not visualized and lingual plates intact bilaterally. Mucogingival wound closure utilized 3-0 Chromic interrupted sutures at site #17, 32. The oral cavity was suctioned clear and the throat pack was removed. After wound closure was accomplished care of the patient was transferred back to the Anesthesia Service for emergence from the general anesthetic and extubation. The patient was extubated without incidence and transferred back to a cart where he was taken to the Post Anesthesia Care Unit for further monitoring. The patient was stable during the entire procedure. There were no complications. I, Dr. Mora, was present for all critical parts of the procedure. ? ? ? Barby Mora DMD, MD Blood Attestation: ATTESTATION OF INFORMED CONSENT FOR BLOOD: The transfusion of blood and/or blood components were discussed with the patient and/or legal branch sales and service representative. The risks, benefits and alternatives were reviewed. Questions regarding blood transfusions were answered. The patient /or the patient s legal branch sales and service representative agree with the plan for transfusion of blood and/or blood components. documented in this encounter [facility] 03-22-2023 Hospital Discharg e instructions Amisha Wood RN - 03/22/2023 10:24 AM EST Your follow up appointment is a TELEHEALTH visit. Not in person. Dental extraction Instructions Biting on Gauze to Control Bleeding Bleeding may occur for some time after you extraction. In most cases this bleeding can be easily controlled by placing a piece of clean gauze DIRECTLY over the empty tooth socket. Then make sure that you bite firmly on this gauze for 30 to 60 minutes. Use the gauze we supplied to you in the bag. Wash your hands with soap and water before touching the gauze and placing it in your mouth. Place the used gauze from your mouth in a plastic bag and dispose the bag in a trash container. Make sure to wash your hands again when you are done touching the used gauze and before touching anything else. If a small amount of bleeding continues after 45 minutes then repeat these instructions. Sometimes biting a tea bag may be helpful in controlling minor bleeding. Very light bleeding for 2 days is not uncommon. If heavy bleeding is still persistent during normal clinic hours than call the Clinic where the extraction was done to speak with an oral surgeon. [facility] [phone]. HELPING THE HEALING PROCESS AND STOPPING THE BLEEDING FOR THE NEXT 24 HOURS (1 DAY) AFTER THE EXTRACTION: DO NOT RINSE YOUR MOUTH OR SPIT 2. DO NOT DRINK ANY HOT LIQUIDS SUCH SOUP, COFFEE, TEA, HOT CHOCOLATE AVOID HEAVY LIFTING, BENDING OR OTHER STENUOUS EXERCISES SLEEP WITH 2 PILLOWS OR IN A RECLINER CHAIR. KEEPING HEAD ELEVATED WILL REDUCE SWELLING. SUTURE WILL DISSOLVE IN 7-10 DAYS FOR THE NEXT 72 HOURS (3 DAYS) AFTER THE EXTRACTION: DO NOT SMOKE OR DRINK ALCOHOL DO NOT DRINK OR SUCK FROM A STRAW OR ANYTHING ELSEDO NOT DRINK. Stitches may have been placed to help healing. Your surgeon will advise you if you need to return to have them removed. TOOTH BRUSHING On the day of the extraction it is best to avoid brushing the teeth right next to the extraction site. On the next day you can start brushing ALL your teeth but in a gentle fashion. Remember to not rinse strongly because it may cause you to start bleeding from the extraction site again. SWELLING AND PAIN After the extraction you may feel some pain and experience some swelling. An ice pack of unopened bag of frozen peas of corn applied to the area should keep the swelling down. Put the ice pack on you face for 10 minutes and then leave it off for the next 20 minutes. You can repeat this patter as you feel is necessary for up to 24 hours after the extraction. To avoid injury, make sure that adults or children avoid biting or chewing on their lips of cheeks, which may be numb following an extraction. If your pain or swelling seems to be getting worse or you feel as though something is not right then call your dentist, as directed above. ANTIBIOTICS AND PAIN MEDICATION If antibiotics have been prescribed then you should take them as directed; this includes taking all the antibiotic (or liquid) pills that were prescribed. If you don't finish them completely a serious infection could result. You may have little of no discomfort after the extraction. If you have minor pain then you may want to take acetaminophen (Tylenol) or ibuprofen (Motrin). It is very important that before taking any medications that you read and follow the directions and warnings that come with these products so you know whether they are right for you and you situation. If you have any questions on whether these medications are right for you, first talk to your doctor or pharmacist before taking the medication. Your surgeon may have given you a written prescription for pain relief. It is important that if you decide to take it you read and understand all the precautions, warnings and directions that come with the medication. If you have any questions on whether the medication is right for you, first talk to your doctor or pharmacist before taking the medication. The pain medication prescription that your dentist gave you may contain a narcotic (like codeine). If so, most narcotic pain medications may upset your stomach. If so, then it is best to take them with food. The pain medication prescription that you were given can also make you drowsy or make you act strangely. If so, you should limit or stop activities such as driving a motor vehicle, operate machinery or other activities that require your full attention. EATING AND DRINKING A soft or liquid diet may be best for you after a difficult extraction. For a simpler extraction just make sure you do your chewing with those teeth that are NOT near the extraction site. POSTOPERATIVE INSTRUCTION AFTER SEDATION / GENERAL ANESTHESIA If you had general anesthesia of IV sedation, do not drive or operate machinery for 24 hours. A responsible adult should be with you for the remainder of the day. When starting oral intake, be sure to consume CLEAR LIQUIDS first. Clear liquids consist of water, Sprite, melissa mavis, Jell-O, and non-pulp containing juices such as cranberry and apple juice. Once tolerating clear-liquids, you may advance your diet. Be sure to follow the specific diet instructions from your doctor according to the type of surgery you have had. It is important that you take any narcotic containing pain medications with food. Patients should not participate in any strenuous activity. Standing and sitting up too quickly following surgery can also result in dizziness and exacerbate these problems. It is also important that patients be supervised for an appropriate amount of time following sedation in order to ensure that they remain safe in the post-operative period. Under NO circumstances should a patient drive the day of surgery or participate in any important decisions. NAUSEA & VOMITING Nausea is not uncommon after surgery. Sometimes pain medications may be the cause. In the event of nausea and/or vomiting following surgery, do not take anything by mouth for at least an hour including the prescribed medicine. You should then sip on Coke, tea, or melissa mavis. You should sip slowly over a 15-minute period. When the nausea subsides, you can begin taking solid foods and the prescribed medicine. You may take the anti-nausea medication if prescribed. If the above is not helpful, contact your surgeon. Please if you have any questions or concerns please contact us: [facility] . Ask for the behavioral psychologist business development consultant (after hours). casket inspector Clinic Hours: Mon-Fri 8:30 am to 4:30 pm. Patient Education General Anesthesia Why is this procedure done? You may need general anesthesia if you need to be asleep during a procedure. Your doctor will use drugs to block the signals that go from your nerves to your brain. Doctors give general anesthesia during a surgery or procedure to: Allow you to sleep Help your body be still Relax your muscles Help you to relax and be pain free Keep you from remembering the surgery Let the doctor manage your airway, breathing, and blood flow The doctor or nurse tick sewer gives general anesthesia by a shot into your vein. Sometimes, you may breathe in a gas through a mask placed over your face. What will the results be? You will be asleep, quiet, and pain free while doctors operate on you. What happens before the procedure? Your doctor will ask you about your health history. Talk to the doctor about: All the drugs you are taking. Be sure to include all prescription and over the counter drugs, vitamins, and herbal supplements. Bring a list of drugs you take with you. Tell the doctor if you have any drug allergy. Any bleeding problems. Be sure to tell your doctor if you are taking any drugs that may cause bleeding. Some of these are warfarin, rivaroxaban, apixaban, ticagrelor, clopidogrel, ketorolac, ibuprofen, naproxen, or aspirin. Certain vitamins and herbs, such as garlic and fish oil, may also add to the risk for bleeding. You may need to stop these drugs as well. Talk to your doctor about them. If you have a stent in place, talk to the doctor that placed the stent before you stop any drugs that thin your blood. If you may be or are . When you need to stop eating or drinking before your procedure. You or a family member having a bad time after anesthesia, such as having a hard time waking up or having a problem called malignant hyperthermia or MH. If you have a dental bridge, loose teeth, or other problems with your teeth Your doctor will do an exam and may order: Lab tests X-ray EKG Drugs to help you stay calm. Your doctor will give them before the staff takes you to the operating room. You will not be allowed to drive right away after the procedure. Ask a family member or a friend to drive you home. Most often the doctor will not want you to eat or drink anything for at least 6 to 8 hours before general anesthesia. Let the doctor know the last time you had anything to eat or drink. What happens during the procedure? The staff will give you a hospital gown to change into. You will also take off your jewelry, glasses, and dentures. The staff will take you to the procedure room and you will lie on the surgical table. They will put monitors on your body to keep track of your blood pressure and heart rate. Your doctor will put an IV line in your arm to give you fluids. Your doctor may give you drugs in your IV line. You will fall asleep as the drug goes into your veins. You may breathe gas through a mask. The doctor will gently hold the mask over your nose and mouth. You will fall asleep as you breathe in the drugs. When you fall asleep, the doctor will put a tube inside your throat. This tube will go into your lungs. The doctor will connect the tube to a machine that will help your breathing. You will also inhale the anesthetic gas through this machine. You always have an anesthesia doctor or nurse with you while you are under anesthesia. They will make sure you stay asleep and pain free. What happens after the procedure? You will go to the Recovery Room for a few hours after the procedure. You may have to stay in the hospital for a few days or longer based on your surgery. The nurses will check your heart rate, breathing, and blood pressure often. The nurses will give you blankets or a warming blanket to keep you warm. You may have small prongs in your nose or an oxygen mask that give you oxygen when you are first waking up in the Recovery Room. You may still have an IV line when you wake up. Your doctor will remove this after a few hours or before you go home. You may feel some pain when the anesthesia wears off. You may also have an upset stomach or feel like throwing up. You can have drugs to help with these problems. Your doctor will teach you some breathing exercises to prevent lung infections. The nurse will make sure that you are able to pass urine before you go home. What problems could happen? Low blood pressure Breathing problems Upset stomach or throwing up Dizziness Last Reviewed Date 2019-07-22 Consumer Information Use and Disclaimer This generalized information is a limited summary of diagnosis, treatment, and/or medication information. It is not meant to be comprehensive and should be used as a tool to help the user understand and/or assess potential diagnostic and treatment options. It does NOT include all information about conditions, treatments, medications, side effects, or risks that may apply to a specific patient. It is not intended to be medical advice or a substitute for the medical advice, diagnosis, or treatment of a health care provider based on the health care provider's examination and assessment of a patient s specific and unique circumstances. Patients must speak with a health care provider for complete information about their health, medical questions, and treatment options, including any risks or benefits regarding use of medications. This information does not endorse any treatments or medications as safe, effective, or approved for treating a specific patient. [employer] and its affiliates disclaim any warranty or liability relating to this information or the use thereof. The use of this information is governed by the Terms of Use, available at https://www.[employer].com/ en/know/clinical-effectiveness -terms Copyright Copyright 2022 [employer]. and its affiliates and/or licensors. All rights reserved. documented in this encounter [facility] 03-22-2023 Progress note Formatting of t his note is different from the original. Blood Attestation: ATTESTATION OF INFORMED CONSENT FOR BLOOD: The transfusion of blood and/or blood components were discussed with the patient and/or legal branch sales and service representative. The risks, benefits and alternatives were reviewed. Questions regarding blood transfusions were answered. The patient /or the patient s legal branch sales and service representative agree with the plan for transfusion of blood and/or blood components. [facility] Work Phone: 03-12-2023 Evaluation note Telephone History Rand Jackson, [id number] 03/12/2023 Patient was identified by name and date of . Needs: Physical, Neck Circumference, and BHCG on DOS. If the patient becomes ill prior to procedure or surgery, they are to call their provider or surgeon's office directly. 17 year old 121 lbs 5' 4 Date of Surgery: 03/22 Surgeon: Abby Type of Surgery: EXTRACTION, TOOTH HISTORY OF PRESENT ILLNESS: Telephone history prior to the surgery at [facility], [address] [place] [address], enter through the main entrance, check-in at the operating room desk, 1st floor. STOP-BANG Row Name 03/12/23 1040 History of sleep apnea? No Snoring No Tired/Fatigued No Observed Apnea No Pressure: Hypertension No BMI greater than 35 0 Age greater than 50 0 Gender male? 0 Score 0 EXERCISE CAPACITY: 4-10 mets ALLERGIES: Patient has no known allergies. PREVIOUS ANESTHETIC EXPERIENCES AND INTUBATION HISTORY: No previous anesthetic complication r/t some type of testing in the past FAMILY HISTORY OF ANESTHETIC COMPLICATIONS: No PAST MEDICAL HISTORY: Past Medical History: Diagnosis Date Hearing deficit, left PROBLEM LIST: Patient Active Problem List: Abnormal tooth eruption [K00.6] REVIEW OF SYSTEMS: Eyes/Ears: Eye Glasses and Hearing Deficit - left Teeth Negative Now scheduled for EXTRACTION, TOOTH Pulmonary: Vapes Denies SOB, wheezes, fever, chills, increased sputum, or general malaise. Cardiovascular: Negative Gastrointestinal: Negative Renal/Genitourinary: Negative Musculoskeletal: Negative Endocrine: Negative Hematologic: Negative Neurologic: Negative Psychiatric: Depression, anxiety Gynecologic:Regular Menses Constitutional:Negative PAST SURGICAL HISTORY: History reviewed. No pertinent surgical history. SOCIAL HISTORY: Social History Socioeconomic History Marital status: Single Tobacco Use Smoking status: Every Day Types: E-cigarette Smokeless tobacco: Never Substance and Sexual Activity Alcohol use: Not Currently Drug use: Yes Types: Marijuana/THC PAIN ASSESSMENT: Severity: 0 Location: N/A LABORATORY DATA: Type & Screen None CBC (last 3 years, up to 5 values) None Basic Metabolic Panel None Basic Metabolic Panel None PT/PTT/INR (last 3 years, up to 5 values) None Arterial Blood Gases None No result for BNP LFT's (last 3 years, up to 5 values) None TESTS REVIEWED: CXRay: No Chest x-ray found EKG: Last ECG Date: Not Found ECHO: Last Echocardiogram: none found going back to 09/05/2011 No results found for this basename: LVEF Stress test date: Last StressTest: none found going back to 09/05/2011 CURRENT MEDICATION LIST: Current Outpatient Medications Medication Sig Dispense Refill sertraline (ZOLOFT) 50 MG tablet Take 50 mg by mouth daily. No current facility-administered medications for this visit. CURRENT MEDICATIONS: Aspirin: No NSAIDS: No Other Antiplatelet Medication: No Anticoagulants: No Steroids: No PATIENT MEDICATION INSTRUCTIONS: On the morning of your surgery please take only the following medications, with a small sip of water: sertraline (ZOLOFT) 50 MG tablet DAY OF SURGERY NOTES: For early a.m. arrival times, The patient is to have nothing to eat or drink after midnight. For later arrival times, No solid food after midnight, the day before procedure or surgery. Per anesthesia's fasting protocol: you may have clear liquids only, the morning of your procedure or surgery. You MUST stop drinking clear liquids 2 hours before your scheduled procedure or surgery time. Iwona Loomis RN Time Spent Performing this Telephone History: 20 with call back [facility] 03-12-2023 Miscellaneous Notes Telephone History Rand Jackson, [id number] 03/12/2023 Patient was identified by name and date of . Needs: Physical, Neck Circumference, and BHCG on DOS. If the patient becomes ill prior to procedure or surgery, they are to call their provider or surgeon's office directly. 17 year old 121 lbs 5' 4 Date of Surgery: 03/22 Surgeon: Abby Type of Surgery: EXTRACTION, TOOTH HISTORY OF PRESENT ILLNESS: Telephone history prior to the surgery at [facility], [address] [place] [address], enter through the main entrance, check-in at the operating room desk, 1st floor. STOP-BANG Row Name 03/12/23 1040 History of sleep apnea? No Snoring No Tired/Fatigued No Observed Apnea No Pressure: Hypertension No BMI greater than 35 0 Age greater than 50 0 Gender male? 0 Score 0 EXERCISE CAPACITY: 4-10 mets ALLERGIES: Patient has no known allergies. PREVIOUS ANESTHETIC EXPERIENCES AND INTUBATION HISTORY: No previous anesthetic complication r/t some type of testing in the past FAMILY HISTORY OF ANESTHETIC COMPLICATIONS: No PAST MEDICAL HISTORY: Past Medical History: Diagnosis Date Hearing deficit, left PROBLEM LIST: Patient Active Problem List: Abnormal tooth eruption [K00.6] REVIEW OF SYSTEMS: Eyes/Ears: Eye Glasses and Hearing Deficit - left Teeth Negative Now scheduled for EXTRACTION, TOOTH Pulmonary: Vapes Denies SOB, wheezes, fever, chills, increased sputum, or general malaise. Cardiovascular: Negative Gastrointestinal: Negative Renal/Genitourinary: Negative Musculoskeletal: Negative Endocrine: Negative Hematologic: Negative Neurologic: Negative Psychiatric: Depression, anxiety Gynecologic:Regular Menses Constitutional:Negative PAST SURGICAL HISTORY: History reviewed. No pertinent surgical history. SOCIAL HISTORY: Social History Socioeconomic History Marital status: Single Tobacco Use Smoking status: Every Day Types: E-cigarette Smokeless tobacco: Never Substance and Sexual Activity Alcohol use: Not Currently Drug use: Yes Types: Marijuana/THC PAIN ASSESSMENT: Severity: 0 Location: N/A LABORATORY DATA: Type & Screen None CBC (last 3 years, up to 5 values) None Basic Metabolic Panel None Basic Metabolic Panel None PT/PTT/INR (last 3 years, up to 5 values) None Arterial Blood Gases None No result for BNP LFT's (last 3 years, up to 5 values) None TESTS REVIEWED: CXRay: No Chest x-ray found EKG: Last ECG Date: Not Found ECHO: Last Echocardiogram: none found going back to 09/05/2011 No results found for this basename: LVEF Stress test date: Last StressTest: none found going back to 09/05/2011 CURRENT MEDICATION LIST: Current Outpatient Medications Medication Sig Dispense Refill sertraline (ZOLOFT) 50 MG tablet Take 50 mg by mouth daily. No current facility-administered medications for this visit. CURRENT MEDICATIONS: Aspirin: No NSAIDS: No Other Antiplatelet Medication: No Anticoagulants: No Steroids: No PATIENT MEDICATION INSTRUCTIONS: On the morning of your surgery please take only the following medications, with a small sip of water: sertraline (ZOLOFT) 50 MG tablet DAY OF SURGERY NOTES: For early a.m. arrival times, The patient is to have nothing to eat or drink after midnight. For later arrival times, No solid food after midnight, the day before procedure or surgery. Per anesthesia's fasting protocol: you may have clear liquids only, the morning of your procedure or surgery. You MUST stop drinking clear liquids 2 hours before your scheduled procedure or surgery time. Iwona Loomis RN Time Spent Performing this Telephone History: 20 with call back documented in this encounter [facility] 02-05-2023 Instructions Madi HartmannCARLOS ENRIQUE - 02/05/2023 3:57 PM EST Oral Surgery General anesthesia instructions You have chosen general anesthesia for your treatment. You have the right to be informed about this so that you can decide whether to have it or not after knowing the risks and benefits. These common procedures are considered quite safe. Nevertheless, all procedures have some risks. They include the following and others: 1. Discomfort, swelling or bruising where the drugs are placed into a vein. 2. Vein irritation, called phlebitis, where the drugs are placed into a vein. Sometimes this may grow to a level of discomfort or disability where it may be difficult to move your arm or hand. Sometimes medication or other treatment may be needed. 3. Nerves travel next to the blood vessels where the drugs are placed into a vein. If the needle hits a nerve or if drugs or fluid leaks out of the vessel around a nerve, I may have numbness or pain in the nerve where it runs along the arm. Usually the numbness or pain goes away, but in some cases, it may be permanent 4. Allergic reactions (previously unknown) to any of the medications used. 5. Nausea and vomiting, although not common, are possible unfortunate side effects. Bed rest, and sometimes medications, may be required for relief. 6. General anesthesia is a serious medical procedures and, whether given in a hospital or office, carry the risk of brain damage, stroke, heart attack or . YOUR OBLIGATIONS: 7. Because anesthetic or sedative medications (including oral premedication) causes drowsiness that lasts for some time, you MUST be accompanied by a responsible adult to drive you to and from surgery, and stay with you for several hours until you are recovered sufficiently to care for yourself. Sometimes the effects of the drugs do not wear off for 24 hours. 8. During recovery time (normally 24 hours), you should not drive, operate complicated machinery or devices or make important decisions such as signing documents, etc. 9. You must have a completely empty stomach. It is vital that you have NOTHING TO EAT OR DRINK for eight (8) hours prior to your treatment. TO DO OTHERWISE MAY BE LIFE-THREATENING. 10. Unless instructed otherwise, it is important that U take any regular medications (high blood pressure, antibiotics, etc.) or any medicines given to me by my surgeon using only a small sip of water. 11. Please do not bring babies on the day of surgery. 12. Do not wear: nail finnish, contact lenses, jewelry. 13. Do wear: loose clothes with short sleeves, long pants, shoes (no high heals). 14. Please call our office to cancel your appointment if you feel sick. Following is the address to the surgery center: [facility] [address] [place] [address]. [place] [address] documented in this encounter [facility] 02-05-2023 History of Presen t illness Narrative Images from the original note were not included. OMFS PATIENT VISIT CHIEF COMPLAINT: [place] Teeth HISTORY OF PRESENT ILLNESS: 17 yo F with sig pmhx of left ear deafness, daily vaping presents to clinic for evaluation of #1, 16, 17, and 32. Patient denies fever, chills, odynophagia, dysphagia, and shortness of breath. Pt endorses waxing and waning pain originating from the teeth listed on the referral that limits ability to chew, function normally, and perform oral hygiene. PAST MEDICAL HISTORY: 17 yrs old Unavailable female No past medical history on file. There is no problem list on file for this patient. MEDICATIONS: No current outpatient medications on file. No current facility-administered medications for this visit. ALLERGIES: Patient has no allergy information on record. SURGICAL HX: No past surgical history on file. SOCIAL HX: Daily Vaping CLINICAL EXAMINATION Extraoral examination: No significant findings No s/s of infection, redness or tenderness to palpation No facial asymmetry or swelling No appreciable LAD Range of motion WNL CN V and VII intact Intraoral examination: No s/s of infection or tenderness to palpation Moist, pink mucosa Oropharynx clear No pathological soft lesions appreciated Oral cancer screen negative Occlusion stable Oral hygiene Fair #1, 16 ,17, and 32 not visible RADIOGRAPHIC INTERPRETATION: [employer] Film taken on 02/05/2023, and Retained in our clinic files #1, 16 ,17, and 32 fully bony impacted DIAGNOSIS: Impacted wisdom teeth TREATMENT: 17 yo F with sig pmhx of left ear deafness, daily vaping presents to clinic for evaluation of #1, 16, 17, and 32. Patient is a candidate for extractions under GA at due to medical history. Reviewed procedure and complications associated with extractions ,including treatment options and no treatment. Opportunity given to ask all desired questions. Pertinent and more common complications of extractions discussed with the patient; pain, swelling, bruising, bleeding, infection (that may require further treatment such as hospitalizations), possible permanent numbness of the tongue, gums, teeth, lip, and chin, injury to adjacent structures (tooth, lip, cheek, jaw bone), damage to adjacent teeth, development of permanent TMJ symptoms/dysfunction, jaw fracture at time of surgery or afterwards, decision to leave root tips behind, displacement of tooth (or portion of) into adjacent spaces (such as sinus, floor of mouth, throat) and the development of sinus symptoms. Complications are not limited to the above and may include others that are less common. PLAN: EXT #1, 16 ,17, and 32 under GA at Madi Hartmann DDS documented in this encounter [facility] 02-05-2023 History of Presen t illness Narrative Images from the original note were not included. OMFS PATIENT VISIT CHIEF COMPLAINT: [place] Teeth HISTORY OF PRESENT ILLNESS: 17 yo F with sig pmhx of left ear deafness, daily vaping presents to clinic for evaluation of #1, 16, 17, and 32. Patient denies fever, chills, odynophagia, dysphagia, and shortness of breath. Pt endorses waxing and waning pain originating from the teeth listed on the referral that limits ability to chew, function normally, and perform oral hygiene. PAST MEDICAL HISTORY: 17 yrs old Unavailable female No past medical history on file. There is no problem list on file for this patient. MEDICATIONS: No current outpatient medications on file. No current facility-administered medications for this visit. ALLERGIES: Patient has no allergy information on record. SURGICAL HX: No past surgical history on file. SOCIAL HX: Daily Vaping CLINICAL EXAMINATION Extraoral examination: No significant findings No s/s of infection, redness or tenderness to palpation No facial asymmetry or swelling No appreciable LAD Range of motion WNL CN V and VII intact Intraoral examination: No s/s of infection or tenderness to palpation Moist, pink mucosa Oropharynx clear No pathological soft lesions appreciated Oral cancer screen negative Occlusion stable Oral hygiene Fair #1, 16 ,17, and 32 not visible RADIOGRAPHIC INTERPRETATION: [employer] Film from referring provider #1, 16 ,17, and 32 fully bony impacted DIAGNOSIS: Impacted wisdom teeth TREATMENT: 17 yo F with sig pmhx of left ear deafness, daily vaping presents to clinic for evaluation of #1, 16, 17, and 32. Patient is a candidate for extractions under GA at due to medical history. Reviewed procedure and complications associated with extractions ,including treatment options and no treatment. Opportunity given to ask all desired questions. Pertinent and more common complications of extractions discussed with the patient; pain, swelling, bruising, bleeding, infection (that may require further treatment such as hospitalizations), possible permanent numbness of the tongue, gums, teeth, lip, and chin, injury to adjacent structures (tooth, lip, cheek, jaw bone), damage to adjacent teeth, development of permanent TMJ symptoms/dysfunction, jaw fracture at time of surgery or afterwards, decision to leave root tips behind, displacement of tooth (or portion of) into adjacent spaces (such as sinus, floor of mouth, throat) and the development of sinus symptoms. Complications are not limited to the above and may include others that are less common. PLAN: EXT #1, 16 ,17, and 32 under GA at Madi Hartmann DDS Associated attestation - Barby Mora DMD, MD - 02/19/2023 2:09 PM EST Teaching Physician Note: I saw and evaluated the patient. I personally obtained the noland and critical portions of the history and physical exam. I reviewed the resident's documentation and discussed the patient with the resident. I agree with the resident's medical decision making as documented in the resident's note. Barby Mora DMD, MD documented in this encounter [facility] note Diagnosis Extraction of tooth needed- Primary Dental caries Unspecified dental caries [facility] Diagnosis Abnormal tooth eruption- Primary Disturbances in tooth eruption [facility] Diagnosis Abnormal tooth eruption- Primary Disturbances in tooth eruption Abnormal tooth eruption- Primary Disturbances in tooth eruption Abnormal tooth eruption Disturbances in tooth eruption [facility] Diagnosis Abnormal tooth eruption- Primary Disturbances in tooth eruption Abnormal tooth eruption- Primary Disturbances in tooth eruption Abnormal tooth eruption Disturbances in tooth eruption [facility] Diagnosis Abnormal tooth eruption- Primary Disturbances in tooth eruption Pre-op evaluation- Primary Preoperative examination, unspecified Abnormal tooth eruption Disturbances in tooth eruption [facility] Diagnosis Abnormal tooth eruption- Primary Disturbances in tooth eruption Pain following oral surgery Abnormal tooth eruption Disturbances in tooth eruption [facility] Diagnosis Hospital discharge follow-up Other follow-up examination Miscarriage, threatened, early [facility] noteNo assessment information availableMer[facility] Work Phone: Reason for referral (narrative)No reason for referral information availableMer[facility] Work Phone: Reason for Referral Specialty Diagnoses / Procedures Referred By Contac t Referred To Contact Oral Surgery Diagnoses Extraction of tooth needed Dental caries Yu Fu, DDS [address] [place] [address] [facility] ORAL SURGERY [address] [place] [address] Referral ID Status Reason Start Date Expiration Date V isits Requested Visits Authorized [id number] Authorized 07/31/2022 08/01/2023 3 3 Scheduling Instructions Please call the alumni coordinator Clinic at [facility] at to schedule an appointment if one was not made for you today. Comments EXT #1, 16, 17, 32 Specialty Diagnoses / Procedures Referred By Contac t Referred To Contact Oral Surgery Diagnoses Abnormal tooth eruption Procedures FULL BONY IMPACTION DEEP ANESTHESIA, 1ST 15 MINS GENERAL ANESTH EA ADDL 15 MIN Barby Mora DMD, MD [address] [place] [address] Referral ID Status Reason Start Date Expiration Date V isits Requested Visits Authorized [id number] Pending Review 02/06/2023 02/07/2024 1 1 Scheduling Instructions If your in-clinic procedure was not scheduled for you today, please call (option 2) during normal business hours (8 am to 5 pm) on to schedule. Please allow 4 weeks time between the day of your consult to scheduling your procedure to allow the system time to process the order and receive insurance authorization. If your insurance denies all or part of your procedure, you will be contacted with [id number] costs or next steps. All self-pay payments will need to be collected in full prior to having the procedure. Please arrive 30 minutes prior to your procedure. If you are having a local anesthesia procedure: No diet restrictions the day before or day of the procedure. You may take your normal medications as instructed. No covid testing needed. You may drive yourself home afterward. If you are prescribed anxiety reducing medications for the procedure: You also MUST have a grain combine driver/escort >18yrs old present to take you home after. If your provider has proposed an IV sedation procedure: Please refer to the instructions given to you at your consult appointment. You will receive a call from a nurse roughly 1 week prior to your procedure to go over any/all instructions. Question Answer What is the procedure for? Dental Please specify: Extractions Please specify: Full Bony Impacted Full Bony Impacted--please list tooth number(s): #1, 16, 17, and 32 Is Sedation Needed? IV Sedation Desired Length (Minutes): 60 Which area is this procedure for? OR Summary Purpose Family History No Family History Records FoundNo Family History Records FoundNo Family History Records Found Advance Directives No Advanced Directives Records FoundNo Advanced Directives Records FoundNo Advanced Directives Records Found Additional Source Comments Reason for Visit (unrecogniz ed section and content) Specialty Diagnoses / Procedures Referred By Kaden koo Referred To Contact Oral Surgery Diagnoses Extraction of tooth needed Dental caries Yu Fu, CARLOS ENRIQUE [address] [place] [address] [facility] ORAL SURGERY [address] [place] [address] Referral ID Status Reason Start Date Expiration Date V isits Requested Visits Authorized [id number] Authorized 07/31/2022 08/01/2023 3 3 Specialty Diagnoses / Procedures Referred By Kaden koo Referred To Contact Ambulatory Surgery Diagnoses Abnormal tooth eruption Abnormal tooth eruption [K00.6] Procedures UNLISTED PROCEDURE, DENTOALVEOLAR STRUCTURES ANESTHESIA, INTRAORAL PROC, W/BX; NOS EXTRACTION, TOOTH Barby Mora DMD, MD [address] [place], [place] [id number] [facility] [address] [place] [phone] Phone: [phone] Referral ID Status Reason Start Date Expiration Date Visits Re quested Visits Authorized [id number] 3 3 Reason Comments ER Follow-up Care Teams (unrecognized sec tion and content) [facility] Former Relationship Specialty Start Date End Date Barby Mora DMD, MD [address] [place] [address] Physician Oral & Maxillofacial Surgery 03/02/23 [employer] Former Relationship Specialty Start Date End Date Barby Mora DMD, MD [address] [place] [address] Physician Oral & Maxillofacial Surgery 03/02/23 Team Status: Inactive Member Role Status Dates Haley Dickerson MD Attending Provider Active Sta rt: July 18, 2024 End: July 18, 2024 Team Status: Inactive Member Role Status Dates Shabbir Kraus MD Attending Provider Active Start : October 22, 2024 End: October 22, 2024 Scheduled Active and Recently Administ ered Medications (unrecognized section and content) Medication Order 03/20/2023 03/21/2023 03/22/2023 acetaminophen (TYLENOL) tablet 1,000 mg, Oral, EVERY 6 HOURS, First dose on Sat03/22/23 at 1100, Until Discontinued, Pre-op 1020 (Given - Provid er: Debi Deacon)1700 (Due)2300 (Due) celecoxib (CeleBREX) capsule 200 mg, Oral, 2 TIMES DAILY, First dose on Sat03/22/23 at 1100, Until Discontinued, Pre-op 1020 (Given - Provid er: Debi Deacon)2100 (Due) chlorhexidine (PERIDEX) 0.12 % oral solution (COMPLETED) 15 mL, Swish & Spit, ONCE, 1 dose, On Sat03/22/23 at 1100, Pre-op 1020 (Given - Provid er: Debi Tenorio) scopolamine (TRANSDERM-SCOP) 1 MG/3DAYS patch 1.5 mg, Transdermal, ONCE, 1 dose, On Sat03/22/23 at 1100, Pre-op 1020 (Patch Applied - Provider: Debi Tenorio) Continuous Medication Order 03/20/2023 03/21/2023 03/22/2023 lactated ringers iv infusion Intravenous, at 75 mL/hr, CONTINUOUS, Starting on Sat03/22/23 at 1100, Until Discontinued 1020 (IV New Bag - P rovider: Debi Tenorio)1027 (Paused - Provider: Martin York - Comment: Switch to gravity)1028 (IV Resume - Provider: Martin York)1117 (IV Stop - Provider: Martin York) lactated ringers iv infusion Intravenous, at 125 mL/hr, CONTINUOUS, Starting on Sat03/22/23 at 1100, Until Discontinued 1100 (Due) PRN Medication Order 03/20/2023 03/21/2023 03/22/2023 albuterol (PROVENTIL) (2.5 MG/3ML) 0.083% nebulizer solution 2.5 mg, Nebulization, PACU ONCE PRN, Starting on Sat03/22/23 at 1016, Until Sat03/22/23 at 1615, Wheezing, PACU Now fentaNYL (SUBLIMAZE) 50 MCG/ML injection 25 mcg, Intravenous Push, EVERY 5 MIN PRN, 5 doses, Starting on Sat03/22/23 at 1016, Until Discontinued, Severe Pain (pain score 7,8,9,10), PACU Now fentaNYL (SUBLIMAZE) 50 MCG/ML injection 12.5 mcg, Intravenous Push, EVERY 5 MIN PRN, 5 doses, Starting on Sat03/22/23 at 1016, Until Discontinued, Moderate Pain (pain score 4,5,6), PACU Now lidocaine (XYLOCAINE) 1 % injection (CANCELED) PRN, Starting on Sat03/22/23 at 1048, Until Sat03/22/23 at 1117, Intra-op 1048 (Given - Provid er: Francesca Mcrae DDS - Comment: mouth) naloxone (NARCAN) 0.4 MG/ML injection 0.4 mg, Intravenous Push, PRN, Starting on Sat03/22/23 at 1016, Until Discontinued, Respiratory Rate Less Than 8 for adults and less than 12 for Peds or for suspected overdose, PACU Now ondansetron (ZOFRAN) 4 MG/2ML injection 4 mg, Intravenous Push, PACU ONCE PRN, Starting on Sat03/22/23 at 1016, Until Sat03/22/23 at 1615, Nausea, Vomiting, PACU Now oxyCODONE immediate release tablet 5 mg, Oral, PACU ONCE PRN, Starting on Sat03/22/23 at 1017, Until Sat03/22/23 at 1616, Mild Pain (pain score 1,2,3), PACU Now INFORMATION SOURCE (unrecogn ized section and content) DATE CREATED AUTHOR 03/31/2023 [facility] DATE CREATED AUTHOR AUTHOR'S ORGANIZ ATION 07/23/2024 [facility] DATE CREATED AUTHOR AUTHOR'S ORGANIZ ATION 10/25/2024 [facility] Goals (unrecognized section and content) Goals may be documented in a n alternate sectionGoals may be documented in an alternate section FOR RECORDS PERTAINING TO PATIENTS WHO ARE OR HAVE BEEN ENROLLED IN A CHEMICAL DEPENDENCY/SUBSTANCEABUSE PROGRAM, SOME INFORMATION MAY BE OMITTED. This clinical summary was aggregated from multiple sources. Caution should be exercised in using it in the provision of clinical care. This summary normalizes information from multiple sources, and as a consequence, information in this document may materially change the coding, format and clinical context of patient data. In addition, data may be omitted in some cases. CLINICAL DECISIONS SHOULD BE BASED ON THE PRIMARY CLINICAL RECORDS. [employer] provides no warranty or guarantee of the accuracy or completeness of information in this document.
== END 2024-12-31 15:55 | disposition home or self-care (01) ==
PROVIDERS: Visit Provider Nurse Practitioner Family
DX: Z32.01 Encounter for pregnancy test, result positive (principal)
CPT/HCPCS: 36415; 84702

== ENCOUNTER 2025-01-07 15:24 | Outpatient (OUT) | payer OTHER, SELFPAY | END 2025-01-07 15:25 | disposition home or self-care (01) | LOC: LAB 15:26 | PROVIDERS: Visit Provider Nurse Practitioner Family | DX: Z32.01 Encounter for pregnancy test, result positive (principal) | CPT/HCPCS: 36415; 84702 ==

== ENCOUNTER 2025-01-20 14:28 | Outpatient (OUT) | payer OTHER, SELFPAY ==
--- OUTSIDE RECORDS SUMMARY | 2023-11-22 08:15 | XMS_ITS ---
Author Organization [employer] [facility] vices Address [address] [place], [place] [phone] Care Team Providers Care Wooden Boat Builder Name Role Phone Dennise Oden Primary Care Provider Nadia Barrett [phone] REASON FOR VISIT [facility] 2 wks Swollen throat Medications Medication SIG (Take, Route, Frequency, Duration) Notes Start Date End Date Status Fluticasone Propionate 50 MCG/ACT 1 spra y in each nostril Nasally Once a day; Duration: 30 days 12/17/2022Not-TakingSertraline HCl 50 MGtake 1 tablet by mouth every morning Orally Once a day; Duration: 90 daysActiveLoestrin Fe 04/20 1-20 MG-MCG1 tablet Orally Once a day; Duration: 28 daysSTOP Rzwynpmy36/23/2023ctive Social History Sex Assigned At : Social History Observation Description Sex Assigned At Female Encounters Encounter Location Date Provider Diagnosis [address] [id number] 11/21 Nadia Barrett Plan Of Treatment No Information Progress Notes * Rand JACKSON MDOB: [birth year] (19 yo F)Acc No.[id number]:11/22/2023 Medical Note Patient: Rand LIU :Shelly BarrettDOB:2005???Age:18 Y???Sex:Female Date:11/22/2023hone:[phone]:[address] [address], [place], [id number]:Dennise Rashid In:11:54 AM EST Subjective: * Chief Complaints: * 1 . [facility] 2 wks Swollen throat. * Medical History: * Medications: T aking Loestrin Fe 04/20 1-20 MG-MCG Tablet 1 tablet Orally Once a day , Notes to Pharmacist: STOP Sprintec, Taking Sertraline HCl 50 MG Tablet take 1 tablet by mouth every morning Orally Once a day , Not-Taking/PRN Fluticasone Propionate 50 MCG/ACT Suspension 1 spray in each nostril Nasally Once a day Objective: * Vitals: Assessment: Plan: * Treatment: * Billing Information: * Visit Code: * Procedure Codes: * Electronic signature of JOAQUIN Palacio on 01/20/2025 at 01:41 PM EDTSign off status: Pending * Provider: Genesis Barrett Date: 0 11/22/2023 Generated for Printing/Faxing/eTransmitting on:?01/20/2025 01:41 PM EDT
--- OUTSIDE RECORDS SUMMARY | 2023-12-26 06:15 | XMS_ITS ---
Author Organization [employer] [facility] vices Address [address] [place] [phone] Care Team Providers Care Process Worker Name Role Phone Dennise Oden Primary Care Provider Camila Barnett [phone] REASON FOR VISIT Recall (A) (19) Social History Sex Assigned At : Social History Observation Description Sex Assigned At Female Encounters Encounter Location Date Provider Diagnosis [facility] [address] [place] [phone] 12/26/2023 Camila Barnett Plan Of Treatment No Information Progress Notes * Rand JACKSON MDOB: [birth year] (19 yo F)Acc No.[id number]:12/26/2023 Patient:?Rand JACKSON :?Camila Barnett DDSDOB:2005???Age:18 Y ???Sex:FemaleDate:4Phone:[phone]:[address] [place] [phone]:Dennise Oden Subjective: * Chief Complaints: * 1 . Recall (A) (19). * Medical History: Objective: * Vitals: Assessment: Plan: * Treatment: * Billing Information: * Visit Code: * Procedure Codes: * Electronic signature of Camila Barnett DDS on 01/20/2025 at 01:41 PM EDT Sign off status: Pending * Provider: Davy Barnett DDS Date: 0 12/26/2023 Generated for Printing/Faxing/eTransmitting on:?01/20/2025 01:41 PM EDT
--- OUTSIDE RECORDS SUMMARY | 2024-07-13 11:45 | XMS_ITS ---
Author Organization [employer] [facility] vices Address [address] [place], [place] [phone] Care Team Providers Care Supervisor Paper Testing Name Role Phone Dennise Oden Primary Care Provider [phone] Georgia Ramos Unavailable [phone] REASON FOR VISIT Wellness (physical for work) Social History Sex Assigned At : Social History Observation Description Sex Assigned At Female Encounters Encounter Location Date Provider Diagnosis Third [address] [facility] [place] [address] [place] [address] 07/13/2024 Georgia Ramos Plan Of Treatment No Information Progress Notes * Rand JACKSON MDOB: [birth year] (19 yo F)Acc No.[id number]:07/13/2024 Medical Note Patient: Rand LIU :?JASON MoralesOB:2005???Age:19 Y ???Sex:FemaleDate:07/13/2024Phone:[phone]:[address] [place] [address], [place], OHDH[phone]:Dennise Oden Subjective: * Chief Complaints: * 1 . Wellness (physical for work). * Medical History: Objective: * Vitals: Assessment: Plan: * Treatment: * Billing Information: * Visit Code: * Procedure Codes: * Electronic signature of Georgia Ramos MD on 01/20/2025 at 01:41 PM EDTSign off status: Pending * Provider: Jim Ramos MD Date: 0 07/13/2024 Generated for Printing/Faxing/eTransmitting on:?01/20/2025 01:41 PM EDT
--- OUTSIDE RECORDS SUMMARY | 2025-01-20 14:00 | XMS_ITS | Encounter Summary ---
Author Organization [facility] Address [address] [place] [address] Care Team Providers Care Information Management Officer Name Role Phone Unavailable Primary Care Provider Unavailabl e Reason for Visit * ReasonCommentsMiscarriagePt present today for a f/up miscarriage visit. Encounter Details DateTypeDepartmentCare Team (Latest Contact Info)Ozvgxlonnrm56/22/2025 2:00 PM EDTOffice Visit [facility] [address] [place] [phone] Anthony Akers DO [address] [place] [address] [facility] History of multiple miscarriages; Bleeding disorder Social History Tobacco UseTypesPacks/DayYears UsedDateSmoking Tobacco: Never Assessed CommentsNoSex and Gender InformationValueDate RecordedSex Assigned at BirthNot on fileLegal DbdDmhogc79/15/2023 9:50 PM EDTGender IdentityNot on fileSexual OrientationNot on filedocumented as of this encounter Last Filed Vital Signs Vital SignReadingTime TakenCommentsBlood Tmgpghkj810/6010 1:56 PM EDT Pulse--Temperature--Respiratory Rate--Oxygen Saturation--Inhaled Oxygen Concentration--Shrbrh84.4 kg (120 lb)01/20/2025 1:56 PM AFHDeinto279.6 cm (5' 4 )01/20/2025 1:56 PM EDTBody Mass Index20.610 1:56 PM EDTdocumented in this encounter Plan of Treatment NameTypePriorityAssociated DiagnosesOrder ScheduleFactor 5 leidenLabRoutine Bleeding disorder Expected: 01/20/2025 (Approximate), Expires: 01/20/2026Protein, totalLabRoutine Bleeding disorder Expected: 01/20/2025 (Approximate), Expires: 01/20/2026DRVVTLabRoutine Bleeding disorder Expected: 01/20/2025 (Approximate), Expires: 01/20/2026eta-2 glycoprotein antibodiesLabRoutine Bleeding disorder Expected: 01/20/2025 (Approximate), Expires: 01/20/2026ntithrombin IIILab Routine Bleeding disorder Expected: 01/20/2025 (Approximate), Expires: 01/20/2026Protein S antigen, free LabRoutine Bleeding disorder Expected: 01/20/2025 (Approximate), Expires: 01/20/2026Protein C activityLab Routine Bleeding disorder Expected: 01/20/2025 (Approximate), Expires: 01/20/2026ardiolipin antibody, IgG LabRoutine Bleeding disorder Expected: 01/20/2025 (Approximate), Expires: 01/20/2026ardiolipin antibody, IgM LabRoutine Bleeding disorder Expected: 01/20/2025 (Approximate), Expires: 01/20/2026TSHLabRoutine History of multiple miscarriages Ordered: 01/20/2025Hemoglobin [id number] History of multiple miscarriages Ordered: 01/20/2025documented as of this encounter Visit Diagnoses Diagnosis Miscarriage ([facility]) Unspecified spontaneous without mention of complication History of multiple miscarriages Bleeding disorder Unspecified hemorrhagic conditions documented in this encounter
--- OUTSIDE RECORDS SUMMARY | 2025-01-20 14:34 | XMS_ITS | Encounter Summary ---
Author Organization [facility] Address [address] [place] [address] Care Team Providers Care Workforce Specialist Name Role Phone Unavailable Primary Care Provider Unavailabl e Encounter Details DateTypeDepartmentCare Team (Latest Contact Info)Ofnxoqqbnbz96/22/2025amboo flowsheet [facility]UL[facility] [place] [facility] [address] [place] [phone] Anthony Akers DO [address] [place], [place] [id number] Social History Tobacco UseTypesPacks/DayYears UsedDateSmoking Tobacco: Never Assessed CommentsNoSex and Gender InformationValueDate RecordedSex Assigned at BirthNot on fileLegal KilKpwznm30/15/2023 9:50 PM EDTGender IdentityNot on fileSexual OrientationNot on filedocumented as of this encounter Plan of Treatment Not on file documented as of this encounter Visit Diagnoses Not on filedocumented in this encounter
--- OUTSIDE RECORDS SUMMARY | 2025-01-20 14:34 | XMS_ITS | Clinical Summary ---
Author Organization [facility] Address [address], [address] [place] [address] Care Team Providers Care Sheet Layer Name Role Phone Carlyle Ramon MD Primary Care Provider + Allergies No known active allergies Medications No known medications Active Problems ProblemNoted DateDiagnosed DateHearing loss in left ear08/13/2011stigmatism of left eye08/13/2011Decreased olpaig6708/13/2011 Social History Tobacco UseTypesPacks/DayYears UsedDateSmoking Tobacco: NeverAlcohol UseStandard Drinks/WeekCommentsNot Asked0 (1 standard drink = 0.6 oz pure alcohol) CommentsUnknownSex and Gender InformationValueDate RecordedSex Assigned at Not on fileLegal HnrZotufd44/10/2013 11:06 AM ESTGender IdentityNot on file Sexual OrientationNot on file Last Filed Vital Signs Vital SignReadingTime TakenCommentsBlood Pldhjvyu08/6205 8:55 AM EDT Dqbzg355308/13/2011 8:55 AM EDTTemperature--Respiratory Gbhx809608/13/2011 8:55 AM EDTOxygen Saturation--Inhaled Oxygen Concentration--Wnpqna36.1 kg (50 lb 14.8 oz)08/13/2011 8:55 AM HELZdobnx322.5 cm (4' 1.02 )08/13/2011 8:55 AM EDTBody Mass Index14.9008/13/2011 8:55 AM EDT Plan of Treatment Not on file Care Teams Team MemberRelationshipSpecialtyStart DateEnd Date Carlyle Ramon MD [facility] - Ymjmgmc07/20/11
--- OUTSIDE RECORDS SUMMARY | 2025-01-20 14:34 | XMS_ITS | Clinical Summary ---
Author Organization [facility] Address [address] [place] [address] Care Team Providers Care Shoe Coverer Name Role Phone Melani Mora DMD, MD Unavailable [phone] Source Comments The following information is NOT included in Care Everywhere downloads:Psychiatric notes, ECG results, Cardiac Rehab notes, Pulmonary Function notes, data from [employer] (includes but not limited toPregnancy data,audiograms, eye exams, pre-surgical evaluation notes, well-child exam data).[facility] Allergies No known active allergies Medications MedicationSigDispense QuantityRefillsLast FilledStart DateEnd DateStatus sertraline (ZOLOFT) 50 MG tablet Take 50 mg by mouth daily.Active norethindrone-ethinyl estradiol (04/20) 1-20 MG-MCG tablet Take 1 Tablet by mouth daily.03/02/2023ctive chlorhexidine (Peridex) 0.12 % oral solution Take 15 mL by mouth 2 times daily (after meals) for 7 days. Swish and spit 15ml BID after meals. Rinse for 30 seconds and then gently spit. Do not swallow. 473 mL 03/22/2023ctive Resolved Problems ProblemNoted DateDiagnosed DateResolved DateAbnormal tooth rotrhizy01/07/2023 03/22/2023 Immunizations ImmunizationAdministration DatesNext DueDTaP, 5 pertussis antigens (Daptacel) (QKM=034)10/03/2005DTaP-Hep B-IPV (Pediarix) (HRV=743)01/02/2005,2004, 2004HPV, 9-valent (Gardasil 9) (GAF=547)05/30/2018,08/31/2016Hep A (peds/adol, 2 dose) (CVX=83)11/07/2006,05/09/2006Hib (PRP-T) (CVX=48)10/03/2005, 01/02/2005,2004,2004Influenza, injectable, trivalent, preservative free (XKO=364)02/24/2007Influenza, intranasal, live, trivalent (LAIV3) (KUR=261) 02/20/2008MMR, Flvzgzd-Qxsmg-Utsdpfd (CVX=03)08/20/2008,10/03/2005Meningococcal conjugate (MCV4,Men-ACWY), Menactra (MCV4P) (FHK=802)07/24/2021,08/31/2016 Pneumococcal conjugate 7 valent (PCV7) (FPJ=216)10/03/2005,01/02/2005,2004 ,2004Polio, inactivated (IPV) (CVX=10)09/02/2009Tdap (LEJ=047)08/31/2016, 08/20/2008Varicella (Chickenpox) (CVX=21)08/20/2008,10/03/2005 Social History Tobacco UseTypesPacks/DayYears UsedDateSmoking Tobacco: Every Michael-cigarette Smokeless Tobacco: Never Tobacco Cessation:Ready to Q uit: Not Asked Alcohol UseStandard Drinks/WeekCommentsNot Currently0 (1 standard drink = 0.6 oz pure alcohol)Substance UseTypesUse/WeekCommentsYesMarijuana/THCComments NoSex and Gender InformationValueDate RecordedSex Assigned at BirthNot on file Legal AzhOelqxi01/02/2023 4:18 PM EDTGender IdentityNot on fileSexual OrientationNot on file Last Filed Vital Signs Vital SignReadingTime TakenCommentsBlood Clwdnqig158/8403/22/2023 12:00 PM EST Iwjtr421303/22/2023 12:00 PM LWZCbhtkqfetum85.2 ??C (98.9 ??F)03/22/2023 11:21 AM ESTRespiratory Jdqm878505/23/2022 12:00 PM ESTOxygen Ndwkfccmxv282%03/22/2023 12:00 PM ESTInhaled Oxygen Concentration--Qzgiir23.4 kg (120 lb)03/22/2023 10:04 AM EXIWahkxx788.6 cm (5' 4 )03/22/2023 10:04 AM ESTBody Mass Index20.6105/23/2022 10:04 AM EST Plan of Treatment Health MaintenanceDue DateLast DoneCommentsHIV Test07/03/2019Meningococcal B (Bexsero,OMV) Vaccine (Optional,16-23 years)2020Hepatitis C Antibody 2022STI Screening (Age 18-24)2022neumococcal Vaccine(s) (1 of 2 - PCV)/07/2005, 01/02/2005, 2004, Additional history exists COVID-19 Vaccine (1 - season)2024Influenza Vaccine (#1)2024 02/20/2008, 02/24/2007Tetanus (Td or Tdap) Cttcsmd83/02/53188108/31/2016, 08/20/2008Shingles (RZV) Vaccine (1 of 2)2054Hepatitis B (HBV) Vaccine Mcizcfbon50/04/2005, 2004, 2004Hepatitis A (HAV) VaccineCompleted 11/07/2006, 05/09/2006Tdap PucqtpxCrlfczosq89/02/2017, 08/20/2008HPV Vaccine Ckeqbucea02/01/2019, 08/31/2016Meningococcal Conjugate (MCV4,ACWY) Vaccine Idtvesxovftv61/25/2022, 08/31/2016MammographyDiscontinued Insurance on file * Guarantor: Rand Jackson TypeRelation to PatientDate of BirthPhone Billing ExknpahXlorsemnowywhTzxc57/03/2006 [address] [place] [address] Care Teams Team MemberRelationshipSpecialtyStart DateEnd Date Melani Mora DMD, MD [address] [place] [address] PhysicianOral & Maxillofacial Asoxtbx38/2/23
--- OUTSIDE RECORDS SUMMARY | 2025-01-20 14:35 | XMS_ITS | Encounter Summary ---
Author Organization [facility] Address [address] [place] [address] Care Team Providers Care Edge Beader Name Role Phone Unavailable Primary Care Provider Unavailabl e Encounter Details DateTypeDepartmentCare Team (Latest Contact Info)Pjnaqhgsizy01/09/2025Telephone [facility] [address] [place] [address] Diya Richter MA [address] [place] [address] Social History Tobacco UseTypesPacks/DayYears UsedDateSmoking Tobacco: Never Assessed CommentsNoSex and Gender InformationValueDate RecordedSex Assigned at BirthNot on fileLegal NglFhnfjz29/15/2023 9:50 PM EDTGender IdentityNot on fileSexual OrientationNot on filedocumented as of this encounter Miscellaneous Notes * Telephone Encounter - Diya Richter MA - 01/07/2025 2:28 PM EDT Mother of patient called (Tori) who is on her HIPAA. And wanted to know if her daughter was supposed to go back again for another lab draw? Mother stated that patient only went one time and the results of her HCG was 53 and not went back again like she was supposed to. I advised mother to have her daughter go back again so we can make sure her levels are down to <5 and then call to schedule a f/up miscarriage visit in our office. Mother VU and is going to take her to get a blood draw. I advised mother she has a standing HCG order at the hospital and she does not need a new order. documented in this encounter Plan of Treatment Not on file documented as of this encounter Visit Diagnoses Not on filedocumented in this encounter
--- OUTSIDE RECORDS SUMMARY | 2025-01-20 14:35 | XMS_ITS | Clinical Summary ---
Author Organization [employer] s tem Address [id number] [address] [place] [address] Care Team Providers Care Commuter Pilot Name Role Phone Unavailable Primary Care Provider Unavailabl e Social History Tobacco UseTypesPacks/DayYears UsedDateSmoking Tobacco: Never AssessedChildcare AnswerDate EqdirfzoAnmiqjvbxZuabvle52/12/2019EmploymentAnswerDate Recorded MrnprzbefhLiefily19/12/2019CommentsUnknownSex and Gender Information ValueDate RecordedSex Assigned at BirthNot on fileLegal UrjPgxcdj48/10/2015 6:56 PM EDTGender IdentityNot on fileSexual OrientationNot on file Plan of Treatment Health MaintenanceDue DateLast DoneCommentsDepression Rsovgzodg28/03/2017Tobacco Dnlpaapcp22/03/2017Adult BMI Bbkumqrel30/03/2023DTaP,Tdap and Td Vaccines (1 - Tdap)07/03/2023Influenza Dpobtad0811/30/2024 Medical Devices Not on file
--- OUTSIDE RECORDS SUMMARY | 2025-01-20 14:35 | XMS_ITS | Encounter Summary ---
Author Organization [facility] Address [address] [place] [address] Care Team Providers Care Park Interpretive Ranger Name Role Phone Unavailable Primary Care Provider Unavailabl e Encounter Details DateTypeDepartmentCare Team (Latest Contact Info)Njxowwevvho83/09/2025linisync Result Encounter [facility] Department Unsolicited Sasha Jenkins, AUDI [address] [place] [address] Social History Tobacco UseTypesPacks/DayYears UsedDateSmoking Tobacco: Never Assessed CommentsNoSex and Gender InformationValueDate RecordedSex Assigned at BirthNot on fileLegal TjuYvpxuf54/15/2023 9:50 PM EDTGender IdentityNot on fileSexual OrientationNot on filedocumented as of this encounter Plan of Treatment Not on file documented as of this encounter Procedures Procedure NamePriorityDate/TimeAssociated DiagnosisCommentsTBH PREG QUANT HCG Bxayicl3601/07/2025 3:30 PM EDT documented in this encounter Results * [facility] PREG QUANT HCG (01/07/2025 3:30 PM EDT)ComponentValueRef RangeTest Method Analysis TimePerformed AtPathologist SignatureHCG AKTKRHMNKLNS4sDK/mLTBH Comment: 5-50 ? 0.2-1 WEEK 50-500 ? 1-2 WEEKS 100-5,000 ?2-3 WEEKS 500-10,000 ? 3-4 WEEKS 1,000-50,000 ?? 4-5 WEEKS 10,000-100,000 5-6 WEEKS 15,000-200,000 6-8 WEEKS 10,000-100,000 2-3 MONTHS Specimen (Source)Anatomical Location / LateralityCollection Method / Volume Collection TimeReceived Time01/07/2025 3:30 PM EDT1 3:37 PM EDT Narrative [facility] - 01/07/2025 4:04 PM EDT Authorizing ProviderResult TypeResult StatusSasha Jenkins NPCLINISYNCFinal ResultPerforming OrganizationAddressCity/State/ZIP CodePhone Number [facility] documented in this encounter Visit Diagnoses Not on filedocumented in this encounter
--- OUTSIDE RECORDS SUMMARY | 2025-01-20 14:35 | XMS_ITS | Clinical Summary ---
Author Organization [facility] Address [address] [place] [address] Care Team Providers Care Ivory Carver Name Role Phone Unavailable Primary Care Provider Unavailabl e Allergies No known active allergies Medications MedicationSigDispense QuantityRefillsLast FilledStart DateEnd DateStatus sertraline (Zoloft) 50 MG tablet TAKE 1 TABLET BY MOUTH ONCE DAILY IN THE MORNING FOR 30 DAYSActive Progesterone 200 MG suppository Indications:History of miscarriageInsert 200 mg into the vagina at bedtime Insert suppository vaginally every night at bedtime until 12 weeks gestation 30 suppository [id number] norethindrone-ethinyl estradiol (04/20) 1-20 MG-MCG tablet Indications:Miscarriage ([facility])Take 1 tablet by mouth Daily 28 tablet 111516Active Encounters DateTypeDepartmentCare XfgeHkekcfjqcgk36/22/2025 2:00 PM EDTOffice Visit [facility] [address] [place] [address] [place] [address] Anthony Akers DO Miscarriage ([facility]); History of multiple miscarriages; Bleeding ysajrkmo56/22/2025amboo flowsheet [facility] [address] [place] [address] Anthony Akers DO 5Clinisync Result Encounter [facility] External Department Unsolicited Sasha Jenkins NP 01/07/2025Telephone [facility] [address] [place] [address] Diya Richter MA 01/04/2025Telephone [facility] [address] [place] [address] Rober Diya, MA 12/31/2024linisync Result Encounter [facility] External Department Unsolicited Sasha JenkinsAUDI 12/31/2024Telephone [facility] [address] [place] [address] Danna Jimenez MA 12/23/2024Telephone [facility] [address] [place] [address] Anthony Akers DO from Last 3 Months Social History Tobacco UseTypesPacks/DayYears UsedDateSmoking Tobacco: Never Assessed CommentsNoSex and Gender InformationValueDate RecordedSex Assigned at BirthNot on fileLegal WqiIteyky43/15/2023 9:50 PM EDTGender IdentityNot on fileSexual OrientationNot on file Last Filed Vital Signs Vital SignReadingTime TakenCommentsBlood Nkpyrkti518/6001/20/2025 1:56 PM EDT Pulse--Temperature--Respiratory Rate--Oxygen Saturation--Inhaled Oxygen Concentration--Ixaplz71.4 kg (120 lb)01/20/2025 1:56 PM EDIQiloin703.6 cm (5' 4 )01/20/2025 1:56 PM EDTBody Mass Index20.610 1:56 PM EDT Plan of Treatment Not on file Procedures Procedure NamePriorityDate/TimeAssociated DiagnosisCommentsTBH PREG QUANT HCG Hrkblpd5701/07/2025 3:30 PM EDT TBH PREG QUANT ZGSLxrjtrh94/02/2025 4:14 PM EDT from Last 3 Months Results * [facility] PREG QUANT HCG (01/07/2025 3:30 PM EDT) Only the most recent of2 resultswithin the time period is included. ComponentValueRef RangeTest MethodAnalysis TimePerformed AtPathologist Signature HCG ITCDGRGRNUXF7wEB/mLTBHComment: 5-50 ? 0.2-1 WEEK 50-500 ? 1-2 WEEKS 100-5,000 ?2-3 WEEKS 500-10,000 ? 3-4 WEEKS 1,000-50,000 ?? 4-5 WEEKS 10,000-100,000 5-6 WEEKS 15,000-200,000 6-8 WEEKS 10,000-100,000 2-3 MONTHS Specimen (Source)Anatomical Location / LateralityCollection Method / Volume Collection TimeReceived Time01/07/2025 3:30 PM EDT1 3:37 PM EDT Narrative [facility] - 01/07/2025 4:04 PM EDT Authorizing ProviderResult TypeResult StatusKristina Alice NPCLINISYNCFinal ResultPerforming OrganizationAddressCity/State/ZIP CodePhone Number [facility] from Last 3 Months Insurance
--- OUTSIDE RECORDS SUMMARY | 2025-01-20 14:35 | XMS_ITS | CCD ---
Author Organization [facility] Care Team Providers Care Fine Wire Drawer Name Role Phone Unavailable Primary Care Provider An Mora DMD, MD, Petra Unavailable [phone] PROVIDER, UNKNOWN Admitting Unavailable PROVIDER, UNKNOWN Attending Unavailable YU FU Referring Unavailable PROVIDER, UNKNOWN Admitting Unavailable PROVIDER, UNKNOWN Attending Unavailable BARBY MORA Referring Unavailable BARBY MORA Admitting Unavailable BARBY MORA Attending Unavailable PROVIDER, UNKNOWN Admitting Unavailable PROVIDER, UNKNOWN Attending Unavailable Unavailable Primary Care Provider UnavailVASILE Olivia Attending Unavailable Haley Dickerson MD Attending Provider Shabbir Kraus MD Attending Provider Shabbir Kraus Attending Unavailable Shabbir Kraus Admitting Unavailable Haley Dickerson Attending Unavailable Haley Dickerson Admitting Unavailable Medications Current Medications MedicationDrug Class(es)DatesSig (Normalized)Sig (Original)acetaminophen 500 mg oral tablet (1 source)Start: 82-47-9667cersxazzubczu (TYLENOL) tabletacetaminophen 325 mg / HYDROcodone bitartrate 5 mg oral tablet (1 source)Opioid AgonistStart: 03-22-2023 End: 25-76-1137vwkv 1 tablet by mouth every six hours as needed for pain hydrocodone-acetaminophen (Suring) 5-325 mg per tablet Indications: Pain following oral surgery Take1 Tablet by mouth every 6 hours as needed for Pain for up to 3 days. 12 Tablet 0 03/22/2023 03/25/2023 Activealbuterol 0.83 mg/ml inhalation solution (1 source)beta2-Adrenergic AgonistStart: 03-22-2023 End: 19-81-1642kezsiejvc (PROVENTIL) (2.5 MG/3ML) 0.083% nebulizer solution calcium chloride 0.0014 meq/ml / potassium chloride 0.004 meq/ml / sodium chloride 0.103 meq/ml / sodium lactate 0.028 meq/ml injectable solution (2 sources)Start: 42-76-0637ixdwrhgv ringers iv infusioncelecoxib 200 mg oral capsule (1 source)Nonsteroidal Anti-inflammatory DrugStart: 41-26-6911dgdrsprce (CeleBREX) capsulechlorhexidine gluconate 1.2 mg/ml mouthwash (2 sources)Start: 03-22-2023 End: 21-97-2878dbdobpvtkfbau (Peridex) 0.12 % oral solution Take 15 mL by mouth 2 times daily (after meals) for 7 days. Swish and spit 15ml BID after meals. Rinse for 30 seconds and then gently spit. Do not swallow. 473 mL 0 03/22/2023 03/29/2023 ActiveStart: 32-62-7488emkxuuyesazig (PERIDEX) 0.12 % oral solution Ethinyl Estradiol / Ferrous fumarate / Norethindrone (1 source)EstrogenStart: 71-51-8507qhsqimipcvgbu-ethinyl estradiol (JUNEL FE 04/20) 1-20 MG-MCG tablet Take 1 Tablet by mouth daily. 0 03/02/2023 Active fentaNYL (SUBLIMAZE) 50 MCG/ML injection (2 sources)Start: 59-33-9671izinfALQ (SUBLIMAZE) 50 MCG/ML injectionStart: 26-45-0989uavedYQH (SUBLIMAZE) 50 MCG/ML injectionibuprofen 600 mg oral tablet (1 source)Nonsteroidal Anti-inflammatory DrugStart: 03-22-2023 End: 71-41-9116jyvt 1 tablet by mouth every six hours as needed for pain ibuprofen (MOTRIN) 600 MG tablet Take 1 Tablet by mouth every 6 hours as needed for Pain for up to 7 days. 28 Tablet 0 03/22/2023 03/29/2023 Active1 ml naloxone hydrochloride 0.4 mg/ml injection (1 source)Opioid AntagonistStart: 55-08-7422uulrgvpf (NARCAN) 0.4 MG/ML injection2 ml ondansetron 2 mg/ml injection (1 source)Serotonin-3 Receptor AntagonistStart: 03-22-2023 End: 25-46-2162xxnbeltpcwb (ZOFRAN) 4 MG/2ML injectionoxyCODONE hydrochloride 5 mg oral tablet (1 source)Opioid AgonistStart: 03-22-2023 End: 19-61-5706brfMZZUKM immediate release tabletProgesterone 200 MG suppository (2 sources)Start: 12-23-2024 End: 29-09-1203Folghzelxlmt 200 MG suppository Indications: History of miscarriage Insert 200 mg into the vagina at bedtime Insert suppository vaginally every night at bedtime until 12 weeks gestation 30 suppository 3 12/23/2024 01/22/2025 Bpzwyl30 hr scopolamine 0.0139 mg/hr transdermal system (1 source)AnticholinergicStart: 03-22-2023 End: 99-56-9119utttotilawt (TRANSDERM-SCOP) 1 MG/3DAYS patchsertraline 50 mg oral tablet (7 sources)Serotonin Reuptake Inhibitortake 1 tablet by mouth once daily in the morningsertraline (Zoloft) 50 MG tablet TAKE 1 TABLET BY MOUTH ONCE DAILY IN THE MORNING FOR 30 DAYS Active Completed/Discontinued Medications MedicationDrug Class(es)DatesSig (Normalized)Sig (Original)ceFAZolin 2000 mg injection (3 sources)Cephalosporin AntibacterialStart: 02-06-2023 End: 47-14-8815maVQWmywz (ANCEF) 2,000 mg in dextrose 50 mL ivpbStart: 02-06-2023 End: 20-07-3284wyQMWpxrn (ANCEF) 2,000 mg in dextrose 50 mL ivpbStart: 02-06-2023 End: 90-54-8908xeAVBwdle (ANCEF) 2,000 mg in dextrose 50 mL ivpb Problems Problem ClassificationProblemDateDocumented DateEpisodic/ChronicDisorders of teeth and jaw (13 sources)Disorder of teeth and supporting structures, unspecified; Translations: [Unspecified disorder of the teeth and supporting structures] Onset: 02-05-2023 Resolved: 58-04-6055YgqzctizRdjfjqtrhr during ; abruptio placenta; placenta previa (2 sources)Threatened miscarriage in first trimester; Translations: [Threatened ]67-48-2812AfkrljazOiqdh aftercare (2 sources)Post-discharge follow-up; Translations: [Encounter for follow-up examination after completed treatment for conditions other than malignant neoplasm]43-09-9007QuiudmxuDgeps nervous system disorders (1 source)Painful mouth; Translations: [Other acute postprocedural pain] 49-68-9605WijkcbjrYvcadavo codes; unclassified (1 source)Other specified postprocedural states; Translations: [Other specified postprocedural states]Onset: 70-67-1919Nnjmrrmb Results Test NameValueInterpretationReference RangeFacilityTB PREG QUANT HCGon 98-92-6939ZIB ODYLETNSYPIG7uCH/mLNOMS HealthcareComment on above:5-50 0.2-1 WEEK 50-500 1-2 WEEKS 100-5,000 2-3 WEEKS 500-10,000 3-4 WEEKS 1,000-50,000 4-5 WEEKS 10,000-100,000 5-6 WEEKS 15,000-200,000 6-8 WEEKS 10,000-100,000 2-3 MONTHS CLINISYSDNOCarondelet HealthTB PREG QUANT HCGon 36-05-0953PTT ALENQVDOVTVW18jPP/mL NOMS HealthcareComment on above:5-50 0.2-1 WEEK 50-500 1-2 WEEKS 100-5,000 2-3 WEEKS 500-10,000 3-4 WEEKS 1,000-50,000 4-5 WEEKS 10,000-100,000 5-6 WEEKS 15,000-200,000 6-8 WEEKS 10,000-100,000 2-3 MONTHS CLINISYSDNONV HealthcareUrine Cultureon 53-34-4939Mayglbmi identified Cx Nom (U) >100,000 colonies/ml mixed bacterial skin contaminants 2 Days PERFORMED BY: [place] [address] PATHOLOGIST NUCLEAR REACTOR TECHNICIAN KLAUDIA CH M.D.NormalBroward Health North Physician GroupComment on above: Performed By: #### CUU #### [place] [address] USATB PREG QUANT HCGon 84-79-9313ZKF OLMFBCYXBXRC7aTO/mLNOMS HealthcareComment on above:5-50 0.2-1 WEEK 50-500 1-2 WEEKS 100-5,000 2-3 WEEKS 500-10,000 3-4 WEEKS 1,000-50,000 4-5 WEEKS 10,000-100,000 5-6 WEEKS 15,000-200,000 6-8 WEEKS 10,000-100,000 2-3 MONTHS CLINISYNCNONV HealthcareHCG ( test) Ql (U)on 12-74-9891Nvnaxonuhonpwx and review of laboratory resultsAbnormalNOMS HealthcarePreg Test, UrPositive NegativeNOMS HealthcareNONV HealthcareUrinalysis macro (dipstick) panel (U)on 79-08-1264Gnhjfesoq, UANegativeNegative - 4(70) +++ mg/dLNOMS HealthcareBlood, UAPositiveNegative - 50 Krishna/mcLNOMS HealthcareComment on above:largeClarity, UA ClearNOMS HealthcareColor, UAYellowNOMS HealthcareGlucose, UANegativeNegative - 2000(110) ++++ mg/dLNONV HealthcareInterpretation and review of laboratory resultsAbnormalNONV HealthcareKetones, UANegativeNegative - 160(16) ++++ mg/dL NOMS HealthcareLeukocytes, UANegativeNegative - 500+++ Duc/mcLNONV Healthcare Nitrite, UANegativeNegative - PositiveNOMS HealthcarepH, UA5.55 - 9NOMS HealthcareProtein, UANegativeNegative - 2000(20) ++++ mg/dLNOMS HealthcareSpec Grav, UA1.011 - 1.03NOMS HealthcareUrobilinogen, UA0.20.2 - 12 mg/dLNOMS HealthcareNOMS HealthcareTBH PREG QUANT HCGon 61-01-9879ZFQ TIKFALPGMCVJ28tWX/mL NOMS HealthcareComment on above:5-50 0.2-1 WEEK 50-500 1-2 WEEKS 100-5,000 2-3 WEEKS 500-10,000 3-4 WEEKS 1,000-50,000 4-5 WEEKS 10,000-100,000 5-6 WEEKS 15,000-200,000 6-8 WEEKS 10,000-100,000 2-3 MONTHS CLINISYNCNONV HealthcareUrine Cultureon 74-33-0640Cdqhaqks identified Cx Nom (U) >100,000 colonies/ml mixed bacterial skin contaminants 2 Days PERFORMED BY: [place] [address] PATHOLOGIST NUCLEAR REACTOR TECHNICIAN LOLITA BHANDARI M.D.[facility] Physician GroupComment on above: Performed By: #### CUU #### [place] [address] USAProgress Noteson 59-82-5412Dzdurjljjvegt Authentication Interface Message TextCalled the patient and received no answer. left with instructions to call [facility] clinic.[facility] SystemAnesthesia Postprocedure Evaluationon 59-97-8155Huutsbknozquf Authentication Interface Message TextAnesthesia Postoperative Assessment: Vital Signs (most recent): BP [...] acceptable ANESTHESIA NOTABLE EVENTS: No notable events documented.[facility] SystemAnesthesia Transfer Of Careon 20-08-1747Lcrjmnjztommw Authentication Interface Message TextPatient taken to PACU. Patient was awake, comfortable [...] intact 03/22/23 1019 Infusion Status Port #1 Infusing;Patent;Positive blood return 03/22/23 1019 Airway Insertion Details [...] of understanding of the report was received. Alex [place] [facility] SystemBlood Attestationon 03-22-2023 Radio Frequency Design Engineer Authentication Interface Message TextBlood Attestation: ATTESTATION OF INFORMED CONSENT FOR BLOOD: The transfusion of blood and/or blood components were discussed with the patient and/or legal vendor representatives. The risks, benefits and alternatives were reviewed. Questions regarding blood transfusions were answered. The patient /or the patient's legal vendor representatives agree with the plan for transfusion of blood and/or blood components.NormalThe [facility] SystemOP Noteon 11-74-7295Wyobdiyndqiue Authentication Interface Message [facility] Division of digital sales planner [address] [place] [address] [address] [place] [place] [address] OPERATIVE NOTE Name: Rand Jackson MR#: [id number] ENC#: Data Unavailable Surgical Case #: Data Unavailable Date of Procedure: 03/22/2023 ? PREOPERATIVE DIAGNOSIS: Abnormal tooth eruption (Primary Diagnosis) [334460] Pain following oral surgery [[id number]] ? POSTOPERATIVE DIAGNOSIS: Abnormal tooth eruption (Primary Diagnosis) [[id number]] Pain following oral surgery [[id number]] OPERATION: FULL BONY IMPACTION [D7240] ? ATTENDING [...] transferred onto the operating room table under thiSeeSpace own power. The patient was then placed [...] Alveolar bone removal was accomplished with a Ravn surgical drill and irrigation. Teeth #17, 32 [...] procedure. ? ? ? Barby Mora DMD, DharaOhioHealth Hardin Memorial Hospitalsoledad [facility] SystemURINE HCG-IN OFFICEOrdered By: Negro Carver on 44-30-1080FAP ( test) Ql (U)NegativeNegative MetroHealthInterpretation and review of laboratory resultsNormalMetroHealth Negative Internal ControlNegativeNegativeMetroHealthPositive Internal Control PositivePositiveMetroHealthMetroHealthAnesthesia Preprocedure Evaluationon 69-79-7554Ywubqnqwrnmhc Authentication Interface Message TextASA: 2 NPO status: Greater than 8 hours Past Medical History and Review of Systems Pulmonary (+) asthma, a smoker Comment: Marijuana abuser Dental - negative ROS Endo - negative ROS 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 The risks, benefits and alternatives were reviewed. Questions regarding anesthesia were answered. Patient and/or legal vendor representatives knows such anesthetics and procedures may be performed by Resident physicians, Certified Anesthesiologist Assistants, or Certified Nurse Anesthetists under the supervision of a physician. The patient /or the patient's legal vendor representatives agree with the plan for anesthesia.NormalThe [facility] SystemPSE Call H AND P on 83-17-3011Ihgehrwtvwubv Authentication Interface Message TextTelephone History Rand Jackson, [id number] 03/12/2023 Patient was identified by name and [...] Telephone history prior to the surgery at [facility]. [address] [place] [address], enter through the main entrance, check-in at [...] Performing this Telephone History: 20 with call ITM SolutionsMercy Health Fairfield HospitaleDosseaPatient Instructionson 51-88-1837Wcignzyzmsfjx Authentication Interface Message TextOral Surgery General anesthesia instructions You have chosen [...] of surgery. 12. Do not wear: nail bulgarian, contact lenses, jewelry. 13. Do wear: loose clothes with short sleeves, long pants, shoes (no high heals). 14. Please call our office to cancel your appointment if you feel sick. Following is the address to the surgery center: [facility] [address] [place] [address]. [place] [address] VfsrewArq [facility] SystemProgress Noteson 27-78-7474Uolcbwwzvieom Authentication Interface Message TextNoInstantQuestSaint John of God HospitalHingi SystemTranscription Authentication Interface Message Text Attestation with edits [...] DMD, MD OMFS PATIENT VISIT CHIEF COMPLAINT: [place] [facility] HISTORY OF PRESENT ILLNESS: 17 yo [...] 16 ,16, and 31 under [place] at Patricio [facility]Hingi System Vital Signs Date TimeVital SignValuePerforming KnpdjbxlcUwhkfkrq74-75-5827 15:28-0400Body .53 kgCorey Channel Intelligence DO Work Phone: NOCarondelet HealthArzgjzoxdp07-77-7036 15:28-0400Diastolic blood aztwbacy78 mm[Hg]Vasile Oswald DO Work Phone: [facility] HospitalUrqjskotow54-92-1028 15:28-0400Systolic blood nibshtwj39 mm[Hg]Vasile Akers DO Work Phone: [facility] HospitalZbglyxbtbs21-48-9845 12:00-0500Diastolic blood vahcsqgz87 mm[Hg]Barby Mora DMD, MD Work Phone: [phone]gHkfrgl82-52-8044 12:00-0500Heart rate85 /minBarby Mora DMD, MD Work Phone: [phone]sYjhdwf11-26-7629 12:00-0500Respiratory rate14 /minBarby Mora DMD, MD Work Phone: [phone]jDokljp77-59-6509 12:00-1943WzK2% (BldA) [Mass fraction]100 %Barby Mora DMD, MD Work Phone: [phone]aSlezzm79-49-0031 12:00-0500Systolic blood qrowbfmp106 mm[Hg]Barby Mora DMD, MD Work Phone: IobukIlpkfd29-817368CnlowDrpqpd87-35-7143 11:21-0500Body srlwxyifmsu86.91 [degF]Barby Mora DMD, MD Work Phone: [phone]hZwlqtk74-58-7303 10:04-0500Body peolwp519.6 cm Barby Mora DMD, MD Work Phone: [phone]rSkvnas79-16-5770 10:04-0500Body mass index (BMI) [Percentile] Per age and sex38.42 %Barby Mora DMD, MD Work Phone: XaggePyjkbk14-090122NcbxeDjcabx71-33-1515 10:04-0500Body mass index (BMI) [Ratio]20.6 kg/v9SugyiBarby Mora DMD, MD Work Phone: RynlmSgwavu20-869581MvjrcHjfaoy63-23-2642 10:04-0500Body .43 kg Barby Mora DMD, MD Work Phone: [phone]oKzaili68-42-0153 10:00-0500Body lmujsg017.6 cm Iwona Loomis SPGiveePdcgwx65-69-7358 10:00-0500Body mass index (BMI) [Percentile] Per age and sex40.85 %Iwona Loomis QNIqirwFqfzec39-33-8293 10:00-0500Body mass index (BMI) [Ratio]20.77 kg/w6RzrhevseIwona Loomis RNMetroOhiohealth Grady [facility] Hospital 03-12-2023 10:00-0500Body pmbulx58.88 kgIwona Loomis RNMetroOhiohealth Grady [facility] Hospital Encounters Encounter DateEncounter TypeCare ProviderFacilityStart: 01-07-2025 End: 75-53-2253Ksxjotzqj Result EncounterSasha Jenkins BOX OFFICE AGENT Work Phone: noms External Department UnsolicitedStart: 01-07-2025 End: 33-62-8672Awdipspxy Result EncounterKrdanea Alice BOX OFFICE AGENT Work Phone: noms External Department UnsolicitedStart: 12-31-2024 End: 87-25-3843Ifqtoxcxs Result EncounterKristina Alice BOX OFFICE AGENT Work Phone: noms External Department UnsolicitedStart: 12-31-2024 End: 22-54-5663Jewfdkkgm Result EncounterKrelmo Terryly BOX OFFICE AGENT Work Phone: noms External Department UnsolicitedStart: 10-22-2024 End: 82-36-6231xvfudgybpoUhif [facility] HospitalashwinBlanchard [facility] Work Phone: Start: 10-22-2024 End: 35-80-4268Hercflen ReferredSyed Efra WOODSON-LAB Path Spec [facility] HospStart: 07-29-2024 End: 31-56-0098Xrhqrwzxe Result EncounterCorey Oswald DO Work Phone: noms External Department UnsolicitedStart: 07-29-2024 End: 82-33-4360Vrcrlfutk Result EncounterCorey Oswald DO Work Phone: noms External Department UnsolicitedStart: 07-22-2024 End: 93-14-3698weukiljvdmTGMBO FAZIONot AvailableStart: 07-22-2024 End: 31-34-8543Egbdir outpatient visit 15 minutesCorey Oswald DO Work Phone: [facility] BCP OBComment on above:Hospital discharge follow-up; Miscarriage, threatened, early pregnancyStart: 07-22-2024 End: 10-29-2701Yjdfin flowsheetCorey Oswald DO Work Phone: [facility] BCP OBStart: 07-22-2024 End: 73-34-5036Ukueie flowsheetCorey Oswald DO Work Phone: [facility] OBStart: 07-21-2024 End: 64-51-5550Qoptnxbys Result EncounterCorey Oswald DO Work Phone: noms External Department UnsolicitedStart: 07-21-2024 End: 15-31-4072Fwjyvzzgw Result EncounterCorey Oswald DO Work Phone: noms External Department UnsolicitedStart: 07-18-2024 End: 89-27-8054benlltybafWjiyxe A [facility]abM[facility] Work Phone: Start: 07-18-2024 End: 60-51-7233Dxslahwy ReferredHaley Dickerson MD Work Phone: [facility]-LAB Path Spec [facility] HospStart: 75-81-0117lvlrzthnihWVAVUHU PROVIDERFacility:METROHealthStart: 03-22-2023 End: 21-83-5364xmwfonipbkLNYIZ OLIVIERIFacility:METROHealthStart: 03-22-2023 End: 44-32-1559Fsocutalki hospital visit by physicianBarby Mora DMD, MD Work Phone: [facility] ORComment on above: Abnormal tooth eruption (Primary Dx); Pain following oral surgeryStart: 03-12-2023 End: 82-21-1565Rwsnqwehvpdto examination Jessie Loomis RNMetroHealthStart: 03-12-2023 End: 33-31-7142Ufnjdgadx encounterPaanders Loomis [facility] Leandra Pre- Surgical EvaluationComment on above:ArrivedStart: 61-13-1858zvnzlkqchzAOXYOPD PROVIDERFacility:[facility] HospitalStart: 89-66-0773Ugyazkqfw for other preprocedural examinationUNKNOWN PROVIDERThe [facility] SystemStart: 50-27-1365Nkjfns encounterBarby Mora DMD, MD Work Phone: [facility] Oral SurgeryStart: 14-33-9877mnhkuoqmxb UNKNOWN PROVIDERFacility:[facility] HospitalStart: 02-05-2023 End: 26-45-7111Qqblbdq encounter procedurePepooja Mora DMD, MD Work Phone: [facility] Oral SurgeryComment on above:Abnormal tooth eruption (Primary Dx)Start: 26-07-6803Nwljcjqmhy Piotr Fu DDS Work Phone: [facility] Physician Referral Service Procedures DateProcedureProcedure DetailPerforming ClinicianStart: 72-67-1852SYG PREG QUANT HCGKristina Alice BOX OFFICE AGENT Work Phone: Start: 42-68-4287DBO PREG QUANT HCGKristina Alice BOX OFFICE AGENT Work Phone: Start: 94-63-7314FZP PREG QUANT HCGCorey Oswald DO Work Phone: Start: 30-76-8775Pdtmb dip stick/tablet rgnt non-auto w/o micrscpCorey Oswald DO Work Phone: Start: 25-64-1476CYF PREG QUANT HCGCorey Oswald DO Work Phone: Start: 04-89-3772Zifks test visual color cmprsn Peng Hartmann DDS Work Phone: Plan of Treatment DateCare ActivityDetailAuthorStart: 83-12-2940Qaafhvy,Diptheria,Pertussis Vaccine (7 - Td or Tdap)Tetanus,Diptheria,Pertussis Vaccine (7 - Td or Tdap) MetroHealthStart: 01-07-2025 End: 02-79-3879dytgngaahl75/09/2025 1:30 PM EDT Initial [facility] [address] [place], [id number] ABCQ [facility] OBGYNStart: 01-07-2025 End: 73-00-3416Doerohbqtpvf / ancillary services /09/2025 1:00 PM EDT Ancillary Procedure [facility] [address] [place] [address] OHOH [facility]yes OBGYNStart: 02-66-8949Zlddf culture [facility] Hospitaltart: 37-91-4252Yxqklvrv identified in Urine by CultureUrine [facility] Hospitaltart: 07-31-2024 End: 12-23-7505dauornzakj48/02/2025 11:00 AM EDT Initial [facility] [address] [place] [address] UDIT BCP OBStart: 07-31-2024 End: 17-16-4162Ifwdnrvkbzgh / ancillary services ohilpopart86/02/2025 10:30 AM EDT Ancillary Procedure [facility] [address] [place], [place] [phone] FFAD BCP OBStart: 07-22-2024 End: 90-34-2377Kiwueyl encounter kulnosotj08/23/2025 3:00 PM EDT Office Visit [facility] [address] [place] [phone] Vasile Akers, DO [address] [place] [address] [facility] BCP OBStart: 93-93-6657Fxspqiqj identified in Urine by CultureUrine [facility] Hospitaltart: 07-18-2024 Urine cultureTriHealth McCullough-Hyde Memorial Hospitaltart: 03-28-2023 End: 04-69-9099Lihcvwb encounter procedureMetPeoples Hospital Oral SurgeryStart: 03-22-2023 End: 71-97-2089Egnlcdtpb to same day surgery centerHendry [facility] Center Ambulatory SurgeryComment on above:EXTRACTION, TOOTHStart: 03-22-2023 End: 48-61-1626EOFPFMJXOZ, TOOTHMetroHealthStart: 41-89-0863Pmoihcgvxo hospital visit by physicianMetRiver Point Behavioral Health Ambulatory SurgeryStart: 03-12-2023 End: 85-92-9216Hsvmyss evaluation of patient and pgodow6903/12/2023 10:30 AM EST Nurse Visit [facility] Pre-Surgical Evaluation [address] [phone] Iwona Loomis RN [address] [place], [place] [address]KtjdkFbtrbxSelect [facility] Pre-Surgical EvaluationStart: 59-47-7571Hkyhgunkz vaccinationInfluenza Vaccine (#1)MetroHealthStart: 07-20-2094Fwrokfizf C screeningHepatitis C AntibodyMetroHealthStart: 60-24-5817Dgrindyum for Chlamydia trachomatisSTI Screening (Age 18-24)MetroHealthStart: 03-11-9619Gjnkblb + diphtheria + acellular pertussis vaccine (product)Tdap BoosterMetroHealthStart: 61-76-2131Apynfc Test (18 yrs,once)Vision Test (18 yrs,once)MetroHealthStart: 06-98-0427Ezawwettg vaccinationInfluenza Vaccine (#1)MetroHealthStart: 83-87-4137Jeuqbdjxwjwga B (Bexsero,OMV) Vaccine (Optional,16-23 years) Meningococcal B (Bexsero,OMV) Vaccine (Optional,16-23 years)MetroHealthStart: 24-21-6861Pclkwuyewsnev B (Bexsero,OMV) Vaccine (Optional,16-23 years) (#1) Meningococcal B (Bexsero,OMV) Vaccine (Optional,16-23 years) (#1)[facility] Start: 69-12-3462Cdizgkaofqtej Conjugate (MCV4,ACWY) Vaccine (1 - 2-dose series) Meningococcal Conjugate (MCV4,ACWY) Vaccine (1 - 2-dose series)MetroHealthStart: 90-97-8353RTJ screeningHIV TestMetroHealthStart: 00-02-1955Cztxnibqqey for human papillomavirusHuman Papilloma (HPV) Vaccine (1 - 2-dose series)[facility] Start: 61-11-4684Bwwzmnv Test (10-18 yrs,once)Hearing Test (10-18 yrs,once) MetroHealthStart: 10-71-2969Odxxk panelLipid ScreeningMetroHealthStart: 27-48-2120Suatvgh,Diptheria,Pertussis Vaccine (1 - Tdap) Tetanus,Diptheria,Pertussis Vaccine (1 - Tdap)MetroHealthStart: 2005 Hepatitis A (HAV) Vaccine (1 of 2 - 2-dose series)Hepatitis A (HAV) Vaccine (1 of 2 - 2-dose series)MetroHealthStart: 17-13-0169Fhadxzy-mumps-rubella vaccinationMeasles,Mumps,Rubella (MMR) Vaccine (1 of 2 - Standard series) [facility]HealthStart: 89-56-8715Oirkraoox vaccinationVaricella Vaccine (1 of 2 - 2- dose childhood series)MetroHealthStart: 06-67-3204WSRZC-19 Vaccine (#1)COVID-19 Vaccine (#1)MetroHealthStart: 23-30-2777Piexnvhfs B vaccinationHepatitis B (HBV) Vaccine (1 of 3 - 3-dose series)MetroHealthEXTRACTION, TOOTHEXTRACTION, TOOTH Routine scheduled Abnormal tooth eruptionMetroHealth End: 89-01-3977kHQ, quantitative, pregnancyhCG, quantitative, Lab Routine Miscarriage, threatened, early 4 Occurrences starting 07/22/2024 until 07/22/2025[facility] Work Phone: comment on above:4 Occurrences starting 07/22/2024 until 07/22/2025removal of impacted tooth - completely bonyFULL BONY IMPACTION Procedures Routine Abnormal tooth eruption Ordered: 03/22/2023[employer] Work Phone: Comment on above:Ordered: 03/22/2023 Immunizations Immunization DateImmunizationNotesCare VouajlejYabnhxdb40-23-2106iwqfvsrdqyjua polysaccharide (groups A, C, Y and W-135) diphtheria toxoid conjugate vaccine (MCV4P)Barby Mora DMD, MD Work Phone: XjmobJwirkv10-614845IihyfCjzqmw97-20-0127Mkftd Papillomavirus 9-valent vaccineBarby Mora DMD, MD Work Phone: JcrvyYmxskk74-699043SmsxoZmaxrb03-04-5139Xujme Papillomavirus 9-valent vaccineBarby Mora DMD, MD Work Phone: GcfsaQqaduf97-812601GjirsOrpppk29-15-2637kwlvmqmuyphxs polysaccharide (groups A, C, Y and W-135) diphtheria toxoid conjugate vaccine (MCV4P)Barby Mora DMD, MD Work Phone: JelbmKcpowd15-462240XatkuVdxwbl53-06-0205ewpopvy toxoid, reduced diphtheria toxoid, and acellular pertussis vaccine, adsorbedBarby Mora DMD, MD Work Phone: ZlhkbUwgwjb22-132025MwxqqCtwprt13-06-3455gqgavwguhk vaccine, inactivated Barby Mora DMD, MD Work Phone: DrexlVlaejl34-404132IsgquBmeleq93-94-7081ygmlnpf, mumps and rubella virus vaccineBarby Mora DMD, MD Work Phone: VmvqjYqdvsm86-242730ZqgcvRunjte69-02-5535oxuwzbk toxoid, reduced diphtheria toxoid, and acellular pertussis vaccine, adsorbedBarby Mora DMD, MD Work Phone: BsktiBsmnua48-563215RvxprChtpmb45-77-9673fhedlljug virus vaccineBarby Mora DMD, MD Work Phone: EvnhhNfyuyx28-901480RpdasIrgwsz86-25-3843strazthqc virus vaccine, live, attenuated, for intranasal useBarby Mora DMD, MD Work Phone: RrzkmDshpog62-645519UmhkiQyhbtg91-96-1988hduhzarfw virus vaccine, unspecified formulationBarby Mora DMD, MD Work Phone: OgrheAxegeq12-609815KgqmzMyyudv79-19-2056yyhykoiel, seasonal, injectable, preservative freeBarby Mora DMD, MD Work Phone: QudhoQlvujm33-271920XoysuDpyxqm84-86-9275tfwcxxkhz A vaccine, pediatric/adolescent dosage, 2 dose scheduleBarby Mora DMD, MD Work Phone: QgqxtPwdywa41-308820RlxuwOaauoq98-64-5789nwgskrbjt A vaccine, pediatric/adolescent dosage, 2 dose scheduleBarby Mora DMD, MD Work Phone: IssrjWxvxnj43-097523QycdwNuhcso62-67-6570csibmesmsz, tetanus toxoids and acellular pertussis vaccine, 5 pertussis antigensPepooja Mora DMD, MD Work Phone: JrxtbYzeaaj00-019628EevogKgynhd99-30-6691etblydlpmfi influenzae type b vaccine, PRP-T conjugateBarby Mora DMD, MD Work Phone: SqxboAjfffq34-730620ZnhjoOwytss55-05-4096srnakir, mumps and rubella virus vaccineBarby Mora DMD, MD Work Phone: VufwqIabkuy61-216416EblibNvatxp43-76-8495qfeafhykzjwm conjugate vaccine, 7 valentBarby Mora DMD, MD Work Phone: FnbhqFeleuz13-610613VewtnVkpetq31-08-3457sfzrpeonr virus vaccineBarby Mora DMD, MD Work Phone: JfsteWploed19-892517MxuzjKxdweg91-44-6932PCfD-dcawqxsim B and poliovirus vaccineBarby Mora DMD, MD Work Phone: PiqnxQjamjz78-170733CkafhWvyibj11-38-3009gwdytrjkets influenzae type b vaccine, PRP-T conjugateBarby Mora DMD, MD Work Phone: JuwdyBfpcaa04-798813LunttNozyns43-45-8470wfazmkafbeqt conjugate vaccine, 7 valentBarby Mora DMD, MD Work Phone: YrfdaFxbstx52-531882BpdpmQuozju84-84-1462GLnC-lbqgcjsyu B and poliovirus vaccineBarby Mora DMD, MD Work Phone: MbdclCpqdet86-496726EpwcoWygbcn07-16-8903ogtcgskcfie influenzae type b vaccine, PRP-T conjugateBarby Mora DMD, MD Work Phone: EkssoJnrjcy77-547042ViyfyVjtlej01-18-3891yhdlazffdgvl conjugate vaccine, 7 valentBarby Mora DMD, MD Work Phone: OvgylUavorv16-647994SqsvhRfrlim90-94-2941BMzS-vyywrucqu B and poliovirus vaccineBarby Mora DMD, MD Work Phone: AytkcLwtiar08-461423KinsiGiyefe69-22-9084xoipfhkskwx influenzae type b vaccine, PRP-T conjugateBarby Mora DMD, MD Work Phone: NrewfSlbljr58-491109FgkdaNwqzjs10-90-6358prfvdlnrbvez conjugate vaccine, 7 valentBarby Mora DMD, MD Work Phone: [facility] Payers DatePayer CategoryPayerPolicy [id number]-pay2024Medicaid (Managed Care)[employer] Member Subscriber Plan / Payer (Effective 2023-Present) Name: Rand Jackson Relation to Subscriber: Self Name: Elvie Jacksonfrancisca Pederson Payer ID: Not on file Group ID: Not on file Type: Not on file Address: [address] [id number].938413.55630-98-1914Pvystsl [id number] .0.1.681586.3.579.2. [id number] .0.1.108948.3.57[id number] .0.1.025578.3.57[id number] 2..1.506049.3.57[id number] 2..840.1.390107.3.579.2.1259 Social History DateTypeDetailFacilityTobacco smoking status NHISTobacco smoking consumption unknownMet[facility] Work Phone: Start: 00-12-2099Rgg Assigned At BirthNot on file MetroHealthGender identityNot on fileMetroHealthStart: 94-72-1616Dbrbdil smoking status NHISSmokes tobacco dailyMetroHealthHistory of tobacco useSmoker (finding)MetroHealthStart: 68-44-9699Xahmksn use and exposureSmokeless tobacco non-userMetroHealthStart: 29-24-3941Zzpsnky intakeEx-drinker (finding) [facility]HealthStart: 74-97-2179DbvSyszgt (finding)[facility] Start: 41-04-0848Cus Assigned At [facility] Clinical Notes 02-05-2023 to 07-22-2024 Note Date & KxluBkmtRifvzcma51-17-8921 History of Present illness Narrative* Sissy Carias, ARCHITECTURE FACULTY MEMBER - 07/22/2024 3:00 PM EDT Reason for Appointment: Patient ID: Rand Jackson [...] nursing note reviewed. Exam conducted with a property custodian present. Vitals: There is no height or weight on file to calculate BMI. BP: 90/62 Patient's last menstrual period was 05/30/2024 (approximate). ASSESSMENT & PLAN ICD-10-CM 1. Hospital discharge follow-up Z09 2. Miscarriage, threatened, early O20.0 POCT urinalysis dipstick manually resulted POCT , urine manually resulted Patient presents today to follow up after a recent miscarriage. I have discussed HCG lab levels andmiscarriage with patient in detail. Patient was given [...] of: Vasile Akers DO documented in this encounterBarnes-Jewish HospitalRsihfmllxy23-50-8762 NoteSurgical Attestation: I have reviewed the patient's History and Physical Examination. I have personally seen and evaluated the patient, repeating noland portions. There is no significant interval change. Surgery is still indicated. Yes Consent reviewed and signed by patient/family: Yes Operative site verified and marked: n/a Rami Laham, DDSTSelect [facility] Surgical operation note * OP Note - Barby Mora DMD, MD - 03/22/2023 10:44 AM EST [facility] Division of digital sales planner [address] [place] [address] Dr. AndrewsHallBrian Ville [id number] OPERATIVE NOTE Name: Rand Jackson MR#: [id number] ENC#: Data Unavailable Surgical Case #: Data Unavailable Date of Procedure: 03/22/2023 ? PREOPERATIVE DIAGNOSIS: Abnormal tooth eruption (Primary Diagnosis) [[id number]] Pain following oral surgery [[id number]] ? POSTOPERATIVE DIAGNOSIS: Abnormal tooth eruption (Primary Diagnosis) [[id number]] Pain following oral surgery [[id number]] OPERATION: FULL BONY IMPACTION [D7240] ? ATTENDING [...] cart and transferred onto the operating room tableunder ahoyDoc power. The patient was then placed in the supine position. A time-out was conductedto confirm correct patient and procedure to be performed. Anesthesia team, Surgical staff and Nursing team all agreed on correct patient and laterality of the procedure. At this time care of the patient was transferred over to the Anesthesia Service for induction of general anesthetic and intubation. The patient was intubated via oral endotracheal tube intubation. The tube was secured and care ofthe patient was transferred back to the Oral [...] Alveolar bone removal was accomplished with a Ravn surgical drill and irrigation. Teeth #17, 32 were sectioned into 4 pieces. The teeth and/or fragmentswere removed by elevator technique. Surgical debris and remaining epithelial fragments were removedby rongeurs. The wounds were irrigated with sterile saline. IANs not visualized and lingual plates intact bilaterally. Mucogingival wound closure utilized 3-0 Chromic interrupted sutures at site #17,32. The oral cavity was suctioned clear and [...] ? ? ? Barby Mora DMD, MD ZwadkHpquhx94-54-9183 Miscellaneous Notes* OP Note - Barby Mora DMD, MD - 03/22/2023 10:44 AM EST [facility] Division of digital sales planner [address] [place] [address] Dr. AndrewsHallKristen [place] [address] OPERATIVE NOTE Name: Rand Jackson MR#: [id number] ENC#: Data Unavailable Surgical Case #: Data Unavailable Date of Procedure: 03/22/2023 ? PREOPERATIVE DIAGNOSIS: Abnormal tooth eruption (Primary Diagnosis) [[id number]] Pain following oral surgery [[id number]] ? POSTOPERATIVE DIAGNOSIS: Abnormal tooth eruption (Primary Diagnosis) [075926] Pain following oral surgery [[id number]] OPERATION: FULL BONY IMPACTION [D7240] ? ATTENDING [...] cart and transferred onto the operating room tableunder thier own power. The patient was then placed in the supine position. A time-out was conductedto confirm correct patient and procedure to be performed. Anesthesia team, Surgical staff and Nursing team all agreed on correct patient and laterality of the procedure. At this time care of the patient was transferred over to the Anesthesia Service for induction of general anesthetic and intubation. The patient was intubated via oral endotracheal tube intubation. The tube was secured and care ofthe patient was transferred back to the Oral [...] Alveolar bone removal was accomplished with a Ravn surgical drill and irrigation. Teeth #17, 32 were sectioned into 4 pieces. The teeth and/or fragmentswere removed by elevator technique. Surgical debris and remaining epithelial fragments were removedby rongeurs. The wounds were irrigated with sterile saline. IANs not visualized and lingual plates intact bilaterally. Mucogingival wound closure utilized 3-0 Chromic interrupted sutures at site #17,32. The oral cavity was suctioned clear and [...] ? ? ? Barby Mora DMD, MD * Blood Attestation - Lloyd Pitts MD - 03/22/2023 10:15 AM EST Blood Attestation: ATTESTATION OF INFORMED CONSENT FOR BLOOD: The transfusion of blood and/or blood components were discussed with the patient and/or legal vendor representatives. The risks, benefits and alternatives were reviewed. Questions regarding blood transfusions were answered. The patient /or the patient s legal vendor representatives agree with the plan for transfusion of blood and/or blood components. documented in this [id number] Hospital Discharge instructions* Discharge Instructions* Amisha Wood RN - 03/22/2023 10:24 AM EST Your follow up appointment is a TELEHEALTH visit. Not in person. Dental extraction Instructions Biting on Gauze to Control Bleeding Bleeding may occur for some time after you extraction. In most cases this bleeding can be easily controlled by placing a piece of clean gauze DIRECTLY over the empty tooth socket. Then make sure thatyou bite firmly on this gauze for 30 [...] done to speak with an oral surgeon. [facility] [phone]. HELPING THE HEALING PROCESS AND STOPPING THE [...] swelling down. Put the ice pack on youface for 10 minutes and then leave it [...] take them as directed; this includes taking allthe antibiotic (or liquid) pills that were prescribed. If you don't finish them completely a serious infection could result. You may have little of no discomfort after the extraction. If you have minor pain then you may wantto take acetaminophen (Tylenol) or ibuprofen (Motrin). It [...] pain relief. It is important that if youdecide to take it you read and understand [...] ensure that they remain safe in the post- operative period. Under NO circumstances should a patient [...] mavis. You should sip slowly over a 15- minute period. When the nausea subsides, you can begin taking solid foods and the prescribed medicine. You may take the anti-nausea medication if prescribed. If the above is not helpful, contact your surgeon. Please if you have any questions or concerns please contact us: [facility] . Ask for the behavioral geneticist hot wound spring production supervisor (after hours). laboratory aide Clinic Hours: Mon-Fri 8:30 am to 4:30 [...] and blood flow The doctor or nurse delivery person gives general anesthesia by a shot into [...] before the staff takes you to the operatingroom. You will not be allowed to drive right away after the procedure. Ask a family member or a friend todrive you home. Most often the doctor will [...] that may apply to a specific patient. Itis not intended to be medical advice or [...] or approved for treating a specific patient. [employer] and its affiliatesdisclaim any warranty or liability relating to this information or the use thereof. The use of thisinformation is governed by the Terms of Use, available at https://www.[employer].com/en/know/mmvxtjqb-hvxdtqfhbaomk-cvizd Copyright Copyright 2022 [employer] and its affiliates and/or licensors. All rights reserved. documented in this [id number] Progress note* Blood Attestation - Lloyd Pitts MD - 03/22/2023 10:15 AM EST Blood Attestation: ATTESTATION OF INFORMED CONSENT FOR BLOOD: The transfusion of blood and/or blood components were discussed with the patient and/or legal vendor representatives. The risks, benefits and alternatives were reviewed. Questions regarding blood transfusions were answered. The patient /or the patient s legal vendor representatives agree with the plan for transfusion of blood and/or blood components. [facility] Work Phone: 1(883) 553-818712-12-2023 Evaluation note* PSE Call H&P - Iwona Loomis RN - 03/12/2023 10:40 AM EST Telephone History Rand Jackson, [id number] 03/12/2023 Patient was identified by name and [...] Telephone history prior to the surgery at [facility], [address] [place] [address], enter through the main entrance, check-in at [...] this Telephone History: 20 with call back [id number] Miscellaneous Notes* PSE Call H&P - Iwona Loomis RN - 03/12/2023 10:40 AM EST Telephone History Rand Jackson, [id number] 03/12/2023 Patient was identified by name and [...] Telephone history prior to the surgery at [facility], [address] [place] [address], enter through the main entrance, check-in at [...] before your scheduled procedure or surgery time. wIona Loomis RN Time Spent Performing this Telephone History: 20 with call back documented in this [id number] Instructions* Patient Instructions* Madi Hartmann DDS - 02/05/2023 3:57 PM EST Oral Surgery General anesthesia instructions You have chosen general anesthesia for your treatment. You have the right to be informed about thisso that you can decide whether to have it or not after knowing the risks and benefits. These commonprocedures are considered quite safe. Nevertheless, all procedures [...] or pain goes away, but in some cases,it may be permanent 4. Allergic reactions (previously [...] sedative medications (including oral premedication) causes drowsiness thatlasts for some time, you MUST be accompanied by a responsible adult to drive you to and from surgery, and stay with you for several hours until you are recovered sufficiently to care for yourself. Gómez etimes the effects of the drugs do not wear off for 24 hours. 8. During recovery time (normally 24 hours), you should not drive, operate complicated machinery ordevices or make important decisions such as signing [...] of surgery. 12. Do not wear: nail bulgarian, contact lenses, jewelry. 13. Do wear: loose clothes with short sleeves, long pants, shoes (no high heals). 14. Please call our office to cancel your appointment if you feel sick. Following is the address to the surgery center: [facility] [address] [place] [address]. [place] [address] documented in this [id number] History of Present illness Narrative* Dianne Cobb - 02/05/2023 3:56 PM EST Images from the original note were not included. * Madi Hartmann DDS - 02/05/2023 3:35 PM EST OMFS PATIENT VISIT CHIEF COMPLAINT: [place] [facility] HISTORY OF PRESENT ILLNESS: 17 yo F with sig pmhx of left ear deafness, daily vaping presents to clinic for evaluation of #1, 16, 17, and 32. Patient denies fever, chills, odynophagia, dysphagia, andshortness of breath. Pt endorses waxing and waning [...] all desired questions. Pertinent and more common complicationsof extractions discussed with the patient; pain, swelling, [...] and the development of sinus symptoms. Complications arenot limited to the above and may include others that are less common. PLAN: EXT #1, 16 ,17, and 32 under [place] at Madi Hartmann DDS documented in this [id number] History of Present illness Narrative* Dianne Cobb - 02/05/2023 3:56 PM EST Images from the original note were not included. * Madi Hartmann DDS - 02/05/2023 3:35 PM EST [facility] PATIENT VISIT CHIEF COMPLAINT: [place] [facility] HISTORY OF PRESENT ILLNESS: 17 yo F with sig pmhx of left ear deafness, daily vaping presents to clinic for evaluation of #1, 16, 17, and 32. Patient denies fever, chills, odynophagia, dysphagia, andshortness of breath. Pt endorses waxing and waning [...] all desired questions. Pertinent and more common complicationsof extractions discussed with the patient; pain, swelling, [...] and the development of sinus symptoms. Complications arenot limited to the above and may include others that are less common. PLAN: EXT #1, 16 ,17, and 32 under [place] at Madi Hartmann DDS Associated attestation - Barby Mora DMD, MD - 02/19/2023 2:09 PM EST Teaching Physician Note: I saw and evaluated the patient. I personally obtained the noland and critical portions of the historyand physical exam. I reviewed the resident's documentation and discussed the patient with the resident. I agree with the resident's medical decision making as documented in the resident's note. Barby Mora DMD, MD documented in this encounterMetroHealthEvaluation note* Diagnosis Extraction of tooth needed- Primary Dental [...] this encounter [facility] HealthcareEvaluation noteNo assessment information availableMorrow [facility] Hospital Ctr Work Phone: Reason for referral (narrative)No reason for referral information availableMorrow County Hospital Ctr Work Phone: Reason for Referral SpecialtyDiagnoses / ProceduresReferred By ContactReferred To ContactOral Surgery Diagnoses Extraction of tooth needed Dental caries Yu Fu, DDS [address] [place] [address] [facility] ORAL SUR[facility]ERY [address] [place] [address] Referral IDStatusReasonStart DateExpiration DateVisits RequestedVisits [id number]/2/20235/[id number] Scheduling Instructions Please call the digital sales planner Clinic at [facility] at to schedule an appointment if one was not made for you today. Comments EXT #1, 16, 17, 32 SpecialtyDiagnoses / ProceduresReferred By ContactReferred To ContactOral Surgery Diagnoses Abnormal tooth eruption Procedures FULL BONY IMPACTION DEEP ANESTHESIA, 1ST 15 MINS GENERAL ANESTH EA ADDL 15 MIN Barby Mora DMD, MD [address] [place] [address] Referral IDStatusReasonStart DateExpiration DateVisits RequestedVisits [id number] Scheduling Instructions If your in-clinic procedure was [...] your procedure, you will be contacted with lna-oi-umbyqqz costs or next steps. All self-pay payments [...] the procedure: You also MUST have a courtesy car driver/escort >18yrs old present to take you home after. If your provider has proposed an IV sedation procedure: Please refer to the instructions given to you at your consult appointment. You will receive a call from a nurse roughly 1 week prior to your procedure to go over any/all instructions. QuestionAnswer What is the procedure for? Dental Please [...] for Visit (unrecogniz ed section and content) SpecialtyDiagnoses / ProceduresReferred By ContactReferred To ContactOral Surgery Diagnoses Extraction of tooth needed Dental caries Yu Fu, CARLOS ENRIQUE [address] [place] [address] [facility] ORAL SURGERY [address] [place] [address] Referral IDStatusReasonStart DateExpiration DateVisits RequestedVisits [id number]/2/20235/2/236015GnepqgtipToxizzkvg / Procedures Referred By ContactReferred To ContactAmbulatory Surgery Diagnoses Abnormal tooth eruption Abnormal tooth eruption [K00.6] Procedures UNLISTED PROCEDURE, DENTOALVEOLAR STRUCTURES ANESTHESIA, INTRAORAL PROC, W/BX; NOS EXTRACTION, TOOTH Barby Mora DMD, MD [address] [place] [address] [facility] [address] [place] [id number] Phone: [phone] Referral IDStatusReasonStlakeland DateExpiration DateVisits RequestedVisits [id number] Follow-up Care Teams (unrecognized sec tion and content) Team MemberRelationshipSpecialtyStart DateEnd Date Barby Mora DMD, MD [address] [place] [address] PhysicianOral & Maxillofacial Egzcyia60/2/23Team MemberRelationshipSpecialty Start DateEnd Date Barby Mora DMD, MD [address] [place] [address] PhysicianOral & Maxillofacial Ugxsheh68/2/23 Team Status: Inactive Member Role Status Dates Haley Dickerson MD Attending Provider Active Sta rt: July 18, 2024 End: July 18, 2024 Team Status: Inactive Member Role Status Dates Shabbir Kraus MD Attending Provider Active Start : October 22, 2024 End: October 22, 2024 Scheduled Active and Recently Administ ered Medications (unrecognized section and content) Medication Order// acetaminophen (TYLENOL) tablet 1,000 mg, Oral, EVERY 6 HOURS, First dose on Sat03/22/23 at 1100, Until Discontinued, Pre-op * 1020 (Given - Provider: Debi Tenorio) * 1700 (Due) * 2300 (Due) celecoxib (CeleBREX) capsule 200 mg, Oral, 2 TIMES DAILY, First dose on Sat03/22/23 at 1100, Until Discontinued, Pre-op * 1020 (Given - Provider: Debi Tenorio) * 2100 (Due) chlorhexidine (PERIDEX) 0.12 % oral solution (COMPLETED) 15 mL, Swish & Spit, ONCE, 1 dose, On Sat03/22/23 at 1100, Pre-op * 1020 (Given - Provider: Debi Tenorio) scopolamine (TRANSDERM-SCOP) 1 MG/3DAYS patch 1.5 mg, Transdermal, ONCE, 1 dose, On Sat03/22/23 at 1100, Pre-op * 1020 (Patch Applied - Provider: Debi Tenorio) Medication Order// lactated ringers iv infusion Intravenous, at 75 mL/hr, CONTINUOUS, Starting on Sat03/22/23 at 1100, Until Discontinued * 1020 (IV New Bag - Provider: Debi Tenorio) * 1027 (Paused - Provider: Martin York - Comment: Switch to gravity) * 1028 (IV Resume - Provider: Martin York) * 1117 (IV Stop - Provider: Martin York) lactated ringers iv infusion Intravenous, at 125 mL/hr, CONTINUOUS, Starting on Sat03/22/23 at 1100, Until Discontinued * 1100 (Due) Medication Order// albuterol (PROVENTIL) (2.5 MG/3ML) 0.083% nebulizer solution [...] at 1048, Until Sat03/22/23 at 1117, Intra-op * 1048 (Given - Provider: Francesca Mcrae DDS - Comment: mouth) naloxone [...] and content) DATE CREATED AUTHOR 03/31/2023 [facility] DATE CREATED AUTHOR AUTHOR'S ORGANIZ ATION 07/23/2024 [facility] DATE CREATED AUTHOR AUTHOR'S ORGANIZ ATION 10/25/2024 [facility] Goals (unrecognized section and content) Goals [...] BE BASED ON THE PRIMARY CLINICAL RECORDS. [facility] [employer] [facility]. provides no warranty or guarantee of the accuracy or completeness of information in this document.
[2025-01-20 15:22] LABS: Thyroid Stimulating Hormone 2.005 uIU/mL (0.358-3.740); Total Protein 7.8 g/dL (6.4-8.2)
[2025-01-21 15:09] LABS: Beta-2 Glycoprotein I Ab, IgA <9 (0-25); Beta-2 Glycoprotein I Ab, IgG <9 (0-20); Beta-2 Glycoprotein I Ab, IgM <9 (0-32)
[2025-01-21 16:09] LABS: Anticardiolipin Ab,IgM,Qn <9 MPL U/mL (0-12)
== END 2025-01-20 14:29 | disposition home or self-care (01) ==
LOC: LAB 14:30
PROVIDERS: Visit Provider Obstetrics & Gynecology
DX: N96 Recurrent pregnancy loss (principal); D69.9 Hemorrhagic condition, unspecified
CPT/HCPCS: 36415; 81241; 83036; 84155; 84443; 85300; 85303; 85306; 85613; 86146; 86147

== ENCOUNTER 2025-02-24 07:56 | Outpatient (RCR) | payer OTHER, SELFPAY ==
--- OUTSIDE RECORDS SUMMARY | 2023-11-22 07:15 | XMS_ITS ---
Author Organization [employer] [facility] Address [address] [place], [place] [id number] Care Team Providers Care Proof Machine Operator Name Role Phone Dennise Oden Primary Care Provider Nadia Barrett [phone] REASON FOR VISIT [facility] 2 wks Swollen throat Medications Medication SIG (Take, Route, Frequency, Duration) Notes Start Date End Date Status Fluticasone Propionate 50 MC G/ACT Suspension 1 spray in each nostril Nasally Once a day; Duration: 30 days 12/17/2022Not-Taking/PRNSertraline HCl 50 MG Tablettake 1 tablet by mouth every morning Orally Once a day; Duration: 90 daysActiveLoestrin Fe 04/20 1-20 MG-MCG Tablet1 tablet Orally Once a day; Duration: 28 daysSTOP Wozgpsnx86/23/2023ctive Social History Sex Assigned At : Social History Observation Description Sex Assigned At Female Encounters Encounter Location Date Provider Diagnosis [address] [id number] 11/21 Nadia Barrett Plan Of Treatment No Information Progress Notes * Rand JACKSON MDOB: [birth year] (19 yo F)Acc No.[id number]:11/22/2023 Medical Note Patient: Rand Vargas :Shelly BarrettDOB:2005???Age:18 Y???Sex:Female Date:4Phone:[phone]:[address] [place] [address], [place], [id number]:Dennise Rashid In:11:54 AM EST Subjective: * Chief Complaints: * [facility] [place] 2 wks Swollen throat * Medications: T akingLoestrin Fe 1/20 1-20 MG-MCG Tablet 1 tablet Orally Once a day , Notes to Pharmacist: STOP SprintecSertraline HCl 50 MG Tablet take 1 tablet by mouth every morning Orally Once a day Taking Loestrin Fe 1/20 1-20 MG-MCG Tablet 1 tablet Orally Once a day , Notes to Pharmacist: STOP SprintecTaking Sertraline HCl 50 MG Tablet take 1 tablet by mouth every morning Orally Once a day Not-Taking/PRNFluticasone Propionate 50 MCG/ACT Suspension 1 spray in each nostril Nasally Once a day Not-Taking/PRN Fluticasone Propionate 50 MCG/ACT Suspension 1 spray in each nostril Nasally Once a day Billing Information: * Procedure Codes: * Electronic signature of JOAQUIN Palacio on 02/24/2025 at 08:02 AM ESTSign off status: Pending * Provider: Genesis Barrett Date: 0 11/22/2023 Generated for Printing/Faxing/eTransmitting on:?02/24/2025 08:02 AM EST
--- OUTSIDE RECORDS SUMMARY | 2023-12-26 05:15 | XMS_ITS ---
Author Organization [employer] [facility] vices Address [address] [place] [phone] Care Team Providers Care Biological Lab Technician Name Role Phone Dennise Oden Primary Care Provider Camila Barnett [phone] REASON FOR VISIT Recall (A) (19) Social History Sex Assigned At : Social History Observation Description Sex Assigned At Female Encounters Encounter Location Date Provider Diagnosis [facility] [address] [place] [phone] 12/26/2023 Camila Barnett Plan Of Treatment No Information Progress Notes * Rand JACKSON MDOB: [birth year] (19 yo F)Acc No.[id number]:12/26/2023 Patient:?Rand Jackson :?Camila Barnett DDSDOB:2005???Age:18 Y ???Sex:FemaleDate:4Phone:[phone]:[address] [place] [address]Pcp:Dennise Oden Subjective: * Chief Complaints: * R erika (A) (19) Billing Information: * Procedure Codes: * Electronic signature of Camila Barnett DDS on 02/24/2025 at 08:02 AM EST Sign off status: Pending * Provider: Davy Barnett DDS Date: 0 12/26/2023 Generated for Printing/Faxing/eTransmitting on:?02/24/2025 08:02 AM EST
--- OUTSIDE RECORDS SUMMARY | 2024-07-13 10:45 | XMS_ITS ---
Author Organization [employer] [facility] vices Address [address] [place], [place] [phone] Care Team Providers Care Hockey Instructor Name Role Phone Dennise Oden Primary Care Provider Georgia Ramos Unavailable [phone] REASON FOR VISIT Wellness (physical for work) Social History Sex Assigned At : Social History Observation Description Sex Assigned At Female Encounters Encounter Location Date Provider Diagnosis [address] [facility] [place] [address] [place] [address] 07/13/2024 Georgia Ramos Plan Of Treatment No Information Progress Notes * Rand JACKSON MDOB: [birth year] (19 yo F)Acc No.[id number]:07/13/2024 Medical Note Patient: Rand Vargas :?JASON MoralesOB:2005???Age:19 Y ???Sex:FemaleDate:07/13/2024Phone:[phone]:[address] [place] [address], [place], [phone]:Dennise Oden Subjective: * Chief Complaints: * W ellness (physical for work) Billing Information: * Procedure Codes: * Electronic signature of Georgia Ramos MD on 02/24/2025 at 08:02 AM ESTSign off status: Pending * Provider: Jim Ramos MD Date: 0 07/13/2024 Generated for Printing/Faxing/eTransmitting on:?02/24/2025 08:02 AM EST
--- OUTSIDE RECORDS SUMMARY | 2024-10-23 07:00 | XMS_ITS ---
Author Organization [employer] [facility] vices Address [address] [place], [place] [id number] Care Team Providers Care Pipe Welder Name Role Phone Dennise Oden Primary Care Provider Georgia Ramos Unavailable [phone] REASON FOR VISIT ER Reyes 10/22 - Vomiting Social History Sex Assigned At : Social History Observation Description Sex Assigned At Female Encounters Encounter Location Date Provider Diagnosis Third [address] [facility] [place] [address] [place] [address] 10/23/2024 Georgia Ramos Plan Of Treatment No Information Progress Notes * Rand JACKSON MDOB: [birth year] (19 yo F)Acc No.[id number]:10/23/2024 Medical Note Patient: Rand Vargas :?JASON MoralesOB:2005???Age:19 Y ???Sex:FemaleDate:10/23/2024Phone:[phone]:[address] [place] [address], [place], [id number]:Dennise Oden Subjective: * Chief Complaints: * E R [place] 10/22 - Vomiting Billing Information: * Procedure Codes: * Electronic signature of Georgia Ramos MD on 02/24/2025 at 08:02 AM ESTSign off status: Pending * Provider: Jim Ramos MD Date: 0 10/23/2024 Generated for Printing/Faxing/eTransmitting on:?02/24/2025 08:02 AM EST
--- OUTSIDE RECORDS SUMMARY | 2025-02-24 08:02 | XMS_ITS | Encounter Summary ---
Author Organization [facility] Address [address] [place] [address] Care Team Providers Care Dental Assisting Instructor Name Role Phone Unavailable Primary Care Provider Unavailabl e Encounter Details DateTypeDepartmentCare Team (Latest Contact Info)Xalsimzvhnc36/24/2025Telephone [facility] [address] [place] [address] Anthony Akers DO [address] [place] [place], [place] [id number] Social History Tobacco UseTypesPacks/DayYears UsedDateSmoking Tobacco: Never Assessed CommentsNoSex and Gender InformationValueDate RecordedSex Assigned at BirthNot on fileLegal ZymNnjvyk55/15/2023 9:50 PM EDTGender IdentityNot on fileSexual OrientationNot on filedocumented as of this encounter Miscellaneous Notes * Telephone Encounter - Rae Lugo LPN - 02/22/2025 1:29 PM EST I am calling because I took a test over the weekend and it came out positive and I was supposed to call if I took a positive one If someone could just give me a call back, thank you. Patient call was returned and she was advised in a detailed message that we will send lab orders over to [facility] for her along with progesterone suppositories to [facility]. If any further questions reach out to the office. documented in this encounter Plan of Treatment NameTypePriorityAssociated DiagnosesOrder SchedulehCG, quantitative, LabRoutine Positive urine test ([facility]-HCC) Missed menses Expected: 02/22/2025 (Approximate), Expires: 08/22/2025documented as of this encounter Visit Diagnoses Diagnosis Positive urine test ([facility]) Missed menses History of miscarriage Personal history of other genital system and obstetric disorders documented in this encounter
--- OUTSIDE RECORDS SUMMARY | 2025-02-24 08:02 | XMS_ITS | Clinical Summary ---
Author Organization [facility] Address [address] [place] [address] Care Team Providers Care Production Designer Name Role Phone Unavailable Primary Care Provider Unavailabl e Allergies No known active allergies Medications MedicationSigDispense QuantityRefillsLast FilledStart DateEnd DateStatus sertraline (Zoloft) 50 MG tablet TAKE 1 TABLET BY MOUTH ONCE DAILY IN THE MORNING FOR 30 DAYSActive norethindrone-ethinyl estradiol (04/20) 1-20 MG-MCG tablet Indications:Miscarriage ([facility])Take 1 tablet by mouth Daily 28 tablet 111/[id number] Progesterone 200 MG suppository Indications:History of miscarriageInsert 200 mg into the vagina at bedtime Insert suppository vaginally every night at bedtime until 12 weeks gestation 30 suppository /5Active Encounters DateTypeDepartmentCare RwgqGnprmttjlhl76/24/2025Telephone [facility] [address] [place] [address] Anthony Akers, DO 01/27/2025Telephone [facility] [address] [place] [address] Anthony Akers, DO 01/27/2025bstract [facility] [address] [place] [address] Anthony Akers, 01/20/2025 2:00 PM EDTOffice Visit [facility] [address] [place] [address] Anthony Akers DO Miscarriage ([facility]); History of multiple miscarriages; Bleeding sqfnsynt32/22/2025linisync Result Encounter [facility] External Department Unsolicited Anthony Akers DO 01/20/2025amboo flowsheet [facility] [address] [place] [address] Anthony Akers DO 01/07/2025linisync Result Encounter [facility] External Department Unsolicited Sasha Jenkins, BI DATA MODELER 01/07/2025Telephone [facility] [address] [place] [address] Diya Richter MA 01/04/2025Telephone [facility] [place] [facility] [address] [place] [address] Diya Richter MA 12/31/2024linisync Result Encounter [facility] External Department Unsolicited Sasha Jenikns, AUDI 12/31/2024Telephone [facility] [address] [place] [address] Danna Jimenez MA 12/23/2024Telephone [facility] [address] [place] [address] Anthony Akers DO from Last 3 Months Social History Tobacco UseTypesPacks/DayYears UsedDateSmoking Tobacco: Never Assessed CommentsNoSex and Gender InformationValueDate RecordedSex Assigned at BirthNot on fileLegal EljQdbxox11/15/2023 9:50 PM EDTGender IdentityNot on fileSexual OrientationNot on file Last Filed Vital Signs Vital SignReadingTime TakenCommentsBlood Ygdqxubl852/6001/20/2025 1:56 PM EDT Pulse--Temperature--Respiratory Rate--Oxygen Saturation--Inhaled Oxygen Concentration--Xyzfpq80.4 kg (120 lb)01/20/2025 1:56 PM UJEHvkhsg693.6 cm (5' 4 )01/20/2025 1:56 PM EDTBody Mass Index20.610 1:56 PM EDT Plan of Treatment Not on file Procedures Procedure NamePriorityDate/TimeAssociated DiagnosisCommentsPROTEIN S, FREE Yhffjui3101/20/2025 2:45 PM EDT ANTICARDIOLIPIN AB, IGM, POSzlgbdq08/22/2025 2:45 PM EDT PROTEIN C-HUBPKHIPBRTwsqkou55/22/2025 2:45 PM EDT TBH ANTITHROMBIN WVCIHEQHVtvtgja01/22/2025 2:45 PM EDT ANTICARDIOLIPIN AB, IGG, CKSgwblxn55/22/2025 2:45 PM EDT BETA-2 GLYCOPROTEIN I AB,G,A,WGcarupa27/22/2025 2:45 PM EDT ALL THYROID STIM CHBZSSKRedgvmq83/22/2025 2:45 PM EDT ALL TOTAL ZHFTYWOMajjnix27/22/2025 2:45 PM EDT MLR HEMOGLOBIN A8TZyamoqu99/22/2025 2:45 PM EDT U[facility] DILUTE ELIJAH VIPER VENOM VTEBMuokbel37/22/2025 2:45 PM EDT FACTOR V LEIDEN HVMUQTJTYcaeynt75/22/2025 2:45 PM EDT TBH PREG QUANT EZAOhqyrwe05/09/2025 3:30 PM EDT TBH PREG QUANT YYDSchpsmg30/02/2025 4:14 PM EDT from Last 3 Months Results * PROTEIN S, FREE (01/20/2025 2:45 PM EDT)ComponentValueRef RangeTest Method Analysis TimePerformed AtPathologist SignaturePROTEIN S, HIHB0101 - 136 %TBH Comment: Performed at: ?? - [facility] ??[id number] Rib Cutter: J Luis Siddiqi MD, Phone: ??[phone] Specimen (Source)Anatomical Location / LateralityCollection Method / Volume Collection TimeReceived Time01/20/2025 2:45 PM EDT1 2:48 PM EDT Narrative CLINISYNC - 01/22/2025 4:07 AM EDT Authorizing ProviderResult TypeResult StatusCorey Oswald DOLAB BLOOD ORDERABLES Final ResultPerforming OrganizationAddressty/State/ZIP CodePhone Number CLINISYTN TBH * ANTICARDIOLIPIN AB, IGM, QN (01/20/2025 2:45 PM EDT)ComponentValueRef Range Test MethodAnalysis TimePerformed AtPathologist SignatureANTICARDIOLIPIN AB,IGM,QN<90 - 12 MPL U/mLTBHComment: Negative: <13 ?Indeterminate: ? 13 - 20 Low-Med Positive: >20 - 80 High Positive: >80 Performed at: ?? - [facility] ??[id number] Rib Cutter: Zaire Yeager PhD, Phone: ??[phone] Specimen (Source)Anatomical Location / LateralityCollection Method / Volume Collection TimeReceived Time01/20/2025 2:45 PM EDT1 2:48 PM EDT Narrative CLINISYNC - 01/21/2025 4:09 PM EDT Authorizing ProviderResult TypeResult StatusCorey Oswald DOLAB BLOOD ORDERABLES Final ResultPerforming OrganizationAddressty/State/ZIP CodePhone Number [facility] * BETA-2 GLYCOPROTEIN I AB,G,A,M (01/20/2025 2:45 PM EDT)ComponentValueRef Range Test MethodAnalysis TimePerformed AtPathologist SignatureBETA-2 GLYCOPROTEIN I AB, IGG<90 - 20TBHComment:Result Units: GPI IgG unitsBETA-2 GLYCOPROTEIN I AB, IGA<90 - 25TBHComment:Result Units: GPI IgA unitsBETA-2 GLYCOPROTEIN I AB, IGM <90 - 32TBHComment: Result Units: GPI IgM units Performed at: ??[address] ??[id number] Rib Cutter: Zaire Yeager PhD, Phone: ??[phone] Specimen (Source)Anatomical Location / LateralityCollection Method / Volume Collection TimeReceived Time01/20/2025 2:45 PM EDT1 2:48 PM EDT Narrative CLINISYNC - 01/21/2025 3:09 PM EDT Authorizing ProviderResult TypeResult StatusCorey Oswald DOLAB BLOOD ORDERABLES Final ResultPerforming OrganizationAddressty/State/ZIP CodePhone Number CLINISYNC TB[facility] * ANTICARDIOLIPIN AB, IGG, QN (01/20/2025 2:45 PM EDT)ComponentValueRef Range Test MethodAnalysis TimePerformed AtPathologist SignatureANTICARDIOLIPIN AB, IGG, QN<90 - 14 GPL U/mLTBHComment: Negative: <15 ?Indeterminate: ? 15 - 20 Low-Med Positive: >20 - 80 High Positive: >80 Performed at: ??[address] ??[id number] Rib Cutter: Zaire Yeager PhD, Phone: ??[phone] Specimen (Source)Anatomical Location / LateralityCollection Method / Volume Collection TimeReceived Time01/20/2025 2:45 PM EDT1 2:48 PM EDT Narrative CLINISYNC - 01/21/2025 4:09 PM EDT Authorizing ProviderResult TypeResult StatusCorey Oswald DOLAB BLOOD ORDERABLES Final ResultPerforming OrganizationAddressty/State/ZIP CodePhone Number CLINISYNC TBH * PROTEIN C-FUNCTIONAL (01/20/2025 2:45 PM EDT)ComponentValueRef RangeTest MethodAnalysis TimePerformed AtPathologist SignaturePROTEIN C-XHLPKLOMGK48100 - 180 %TBHComment: Performed at: ??BN - [facility] [address] ??[id number] Rib Cutter: J Luis Siddiqi MD, Phone: ??[phone] Specimen (Source)Anatomical Location / LateralityCollection Method / Volume Collection TimeReceived Time01/20/2025 2:45 PM EDT1 2:48 PM EDT Narrative CLINISYNC - 01/22/2025 3:07 AM EDT Authorizing ProviderResult TypeResult StatusCorey Oswald DOLAB BLOOD ORDERABLES Final ResultPerforming OrganizationAddressCity/State/ZIP CodePhone Number CLINISYNC TB[facility] * FACTOR V LEIDEN MUTATION (01/20/2025 2:45 PM EDT)ComponentValueRef RangeTest MethodAnalysis TimePerformed AtPathologist SignatureTBH FACTOR V LEIDEN MUTATIONComment.TBHComment: Result: c.1601G>A (p.Xce715Qgf) - Not Detected This result is not associated with an increased risk for venous thromboembolism. See Additional Clinical Information and Comments. Additional Clinical Information: ?Venous thromboembolism is a multifactorial disease influenced by genetic, environmental, and circumstantial risk factors. The c.1601G>A (p. Cta212Cgd) variant in the F5 gene, commonly referred to as Factor V Leiden, is a genetic risk factor for venous thromboembolism. Heterozygous carriers of this variant have a 6- to 8-fold increased risk for venous thromboembolism. Individuals homozygous for this variant (ie, with a copy of the variant on each chromosome) have an approximately 80-fold increased risk for venous thromboembolism. Individuals who carry both a c.*97G>A variant in the F2 gene and Factor V Leiden have an approximately 20-fold increased risk for venous thromboembolism. Risks are likely to be even higher in more complex genotype combinations involving the F2 c.*97G>A variant and Factor V Leiden (PMID: 90247669). Additional risk factors include but are not limited to: deficiency of protein C, protein S, or antithrombin III, age, male sex, personal or family history of deep vein thromboembolism, smoking, surgery, prolonged immobilization, malignant neoplasm, tamoxifen treatment, raloxifene treatment, oral contraceptive use, hormone replacement therapy, and . Management of thrombotic risk and thrombotic events should follow established guidelines and fit the clinical circumstance. This result cannot predict the occurrence or recurrence of a thrombotic event. Comment: ?Genetic counseling is recommended to discuss the potential clinical implications of positive results, as well as recommendations for testing family members. ?Genetic Coordinators are available for health care providers to discuss results at [phone] [place] [phone]). Test Details: Variant Analyzed: c.1601G>A (p. [id number]), referred to as Factor V Leiden Methods/Limitations: ?DNA analysis of the F5 gene (NM_000130.5) was performed by PCR amplification followed by electrophoresis. The diagnostic sensitivity is >99%. Results must be combined with clinical information for the most accurate interpretation. Molecular-based testing is highly accurate, but as in any laboratory test, diagnostic errors may occur. False positive or false negative results may occur for reasons that include genetic variants, blood transfusions, bone marrow transplantation, somatic or tissue-specific mosaicism, mislabeled samples, or erroneous representation of family relationships. ?This test was developed and its performance characteristics determined by [employer]. It has not been cleared or approved by the Food and Drug Administration. References: ?Ni Forbes, Sana GONZALEZ, Jack R, Bryan WW, Fidencio JH; ACMG Professional Practice and Guidelines Committee. Addendum: [employer] consensus statement on factor V Leiden mutation testing. Lula Med. 2020Jun 03. doi: 10.1038/u26947-448-50115-m. PMID: 63680673. ?Nader GROSSMAN. Factor V Leiden Thrombophilia. 1998August 12 (Updated 2017Apr 04). In: Ravi MP, Shahla HH, Sam RA, et al., editors. Nigel(R) (Internet). [place] ([place]): [employer], [place]; 2301-0514. Available from: https://www.ncbi.nlm.nih.gov/books/WWG5982/ ?Dash Forbes, Sana GONZALEZ, Chip X, Anjel B, Annmarie EB, Edith P, Wilfredo CS; A[employer] Laboratory Rim Technician Committee. Venous thromboembolism laboratory testing (factor V Leiden and factor II c. *97G>A), 2018 update: a technical standard of the [employer] and [employer]omics (ACMG). Lula Med. 2018 Mar;20(12): 1090-6257. doi: 10.1038/q55059-538-9573-p. Epub 2017Jan 03. PMID: 98147667. TBH REVIEWED BYComment.TBHComment: Technical Component performed at [facility] [place] Professional Component performed by: Gabriela Barfield, PhD, [facility] JTTGD11, [facility], [address] [place] [address] Performed at: ??TG - [facility] [place] [address], [place], [place] ??[id number] Rib Cutter: Jose Doherty [facility], Phone: ??[phone] Specimen (Source)Anatomical Location / LateralityCollection Method / Volume Collection TimeReceived Time01/20/2025 2:45 PM EDT1 2:48 PM EDT Narrative CLINISYNC - 01/25/2025 12:08 PM EDT Authorizing ProviderResult TypeResult StatusCorey Oswald DOLAB BLOOD ORDERABLES Final ResultPerforming OrganizationAddressCity/State/ZIP CodePhone Number [facility] * TBH ANTITHROMBIN ACTIVITY (01/20/2025 2:45 PM EDT)ComponentValueRef RangeTest MethodAnalysis TimePerformed AtPathologist SignatureTB ANTITHROMBIN ACTIVITY 35630 - 135 %TBHComment: Direct Xa inhibitor anticoagulants such as rivaroxaban, apixaban and edoxaban will lead to spuriously elevated antithrombin activity levels possibly masking a deficiency. Specimen (Source)Anatomical Location / LateralityCollection Method / Volume Collection TimeReceived Time01/20/2025 2:45 PM EDT1 2:48 PM EDT Narrative CLINISYNC - 01/22/2025 3:07 AM EDT Authorizing ProviderResult TypeResult StatusCorey Oswald DOCLINISYNCFinal Result Performing OrganizationAddressCity/State/ZIP CodePhone Number [facility] TB * DILUTE ELIJAH VIPER VENOM TIME (01/20/2025 2:45 PM EDT)ComponentValueRef RangeTest MethodAnalysis TimePerformed AtPathologist SignatureDILUTE ELIJAH'S VIPER VENOM30.7. secTBHComment: Reference Range: <= 47.0 DRVVT.2TNP. secTBHComment:Testing Not IndicatedDRVVT.3TNP. ratioTBHComment: Testing Not Indicated Performed at: ??[employer] [address] ??[id number] Rib Cutter: Nilesh García MD, Phone: ??[phone] Specimen (Source)Anatomical Location / LateralityCollection Method / Volume Collection TimeReceived Time01/20/2025 2:45 PM EDT1 2:48 PM EDT Narrative CLINISYNC - 01/29/2025 6:09 PM EDT Authorizing ProviderResult TypeResult StatusCorey Oswald DOCLINISYNCFinal Result Performing OrganizationAddressCity/State/ZIP CodePhone Number [facility] * MLR HEMOGLOBIN A1C (01/20/2025 2:45 PM EDT)ComponentValueRef RangeTest Method Analysis TimePerformed AtPathologist SignatureGLYCOHEMOGLOBIN A1C5.14.5 - 6.2 %TBHComment: ADA RECOMMENDED LIMIT 4.0 - 6.0 ADA THERAPEUTIC TARGET < 7.0 ACTION SUGGESTED > 7.0 ESTIMATED AVERAGE SVIMQUF250jx/dLTBHSpecimen (Source)Anatomical Location / LateralityCollection Method / VolumeCollection TimeReceived Time01/20/2025 2:45 PM EDT1 2:48 PM EDT Narrative CLINISYNC - 01/20/2025 3:14 PM EDT Authorizing ProviderResult TypeResult StatusCorey Oswald DOCLINISYNCFinal Result Performing OrganizationAddressCity/State/ZIP CodePhone Number [facility] * ALL TOTAL PROTEIN (01/20/2025 2:45 PM EDT)ComponentValueRef RangeTest Method Analysis TimePerformed AtPathologist SignatureTOTAL PROTEIN7.86.4 - 8.2 g/dL TBHSpecimen (Source)Anatomical Location / LateralityCollection Method / Volume Collection TimeReceived Time01/20/2025 2:45 PM EDT1 2:48 PM EDT Narrative CLINISYNC - 01/20/2025 3:32 PM EDT Authorizing ProviderResult TypeResult StatusCorey Oswald DOCLINISYNCFinal Result Performing OrganizationAddressCity/State/ZIP CodePhone Number [facility] * ALL THYROID STIM HORMONE (01/20/2025 2:45 PM EDT)ComponentValueRef RangeTest MethodAnalysis TimePerformed AtPathologist SignatureTHYROID STIMULATING HORMONE2.0050.358 - 3.740 uIU/mLTBHSpecimen (Source)Anatomical Location / LateralityCollection Method / VolumeCollection TimeReceived Time01/20/2025 2:45 PM EDT1 2:48 PM EDT Narrative CLINISYNC - 01/20/2025 3:32 PM EDT Authorizing ProviderResult TypeResult StatusCorey Oswald DOCLINISYNCFinal Result Performing OrganizationAddressCity/State/ZIP CodePhone Number [facility] * TBH PREG QUANT HCG (01/07/2025 3:30 PM EDT) Only the most recent of2 resultswithin the time period is included. ComponentValueRef RangeTest MethodAnalysis TimePerformed AtPathologist Signature HCG KWKYLQQCKKAU4yXX/mLTBHComment: 5-50 ? 0.2-1 WEEK 50-500 ? 1-2 WEEKS 100-5,000 ?2-3 WEEKS 500-10,000 ? 3-4 WEEKS 1,000-50,000 ?? 4-5 WEEKS 10,000-100,000 5-6 WEEKS 15,000-200,000 6-8 WEEKS 10,000-100,000 2-3 MONTHS Specimen (Source)Anatomical Location / LateralityCollection Method / Volume Collection TimeReceived Time01/07/2025 3:30 PM EDT1 3:37 PM EDT Narrative CLINISYNC - 01/07/2025 4:04 PM EDT Authorizing ProviderResult TypeResult StatusSasha Jenkins NPCLINISYNCFinal ResultPerforming OrganizationAddressCity/State/ZIP CodePhone Number [facility] from Last 3 Months Insurance * Guarantor: Rand Jackson TypeRelation to PatientDate of BirthPhone Billing AddressPersonal/XchabhGeal23/03/[address] [address]
--- OUTSIDE RECORDS SUMMARY | 2025-02-24 08:02 | XMS_ITS | Clinical Summary ---
Author Organization [employer] Address [id number] [place] [address] Care Team Providers Care Assistant Teacher Primary Name Role Phone Unavailable Primary Care Provider Unavailabl e Social History Tobacco UseTypesPacks/DayYears UsedDateSmoking Tobacco: Never AssessedChildcare AnswerDate JkwxozzwYxsqddbzrVqczwxw19/12/2019EmploymentAnswerDate Recorded IgsliztodbVmtqcyl79/12/2019CommentsUnknownSex and Gender Information ValueDate RecordedSex Assigned at BirthNot on fileLegal KocZlmwvi72/10/2015 6:56 PM EDTGender IdentityNot on fileSexual OrientationNot on file Plan of Treatment Health MaintenanceDue DateLast DoneCommentsDepression Xpugcxivo38/03/2017Tobacco Dcvqzbjpv76/03/2017Adult BMI Ybdbvdnnq38/03/2023DTaP,Tdap and Td Vaccines (1 - Tdap)07/03/2023Influenza Oyhlhcx8611/30/2024 Medical Devices Not on file
--- OUTSIDE RECORDS SUMMARY | 2025-02-24 08:02 | XMS_ITS | Clinical Summary ---
Author Organization [facility] Address [address], [address] [place] [address] Care Team Providers Care Supervisor Production Managing Name Role Phone Carlyle Ramon MD Primary Care Provider + Allergies No known active allergies Medications No known medications Active Problems ProblemNoted DateDiagnosed DateHearing loss in left ear08/13/2011stigmatism of left eye08/13/2011Decreased tsliye1208/13/2011 Social History Tobacco UseTypesPacks/DayYears UsedDateSmoking Tobacco: NeverAlcohol UseStandard Drinks/WeekCommentsNot Asked0 (1 standard drink = 0.6 oz pure alcohol) CommentsUnknownSex and Gender InformationValueDate RecordedSex Assigned at Not on fileLegal WwiCudshw44/10/2013 11:06 AM ESTGender IdentityNot on file Sexual OrientationNot on file Last Filed Vital Signs Vital SignReadingTime TakenCommentsBlood Flngcavx64/6205 8:55 AM EDT Bamwz175708/13/2011 8:55 AM EDTTemperature--Respiratory Wcxq484008/13/2011 8:55 AM EDTOxygen Saturation--Inhaled Oxygen Concentration--Sstitk72.1 kg (50 lb 14.8 oz)08/13/2011 8:55 AM YFTNedquf460.5 cm (4' 1.02 )08/13/2011 8:55 AM EDTBody Mass Index14.9008/13/2011 8:55 AM EDT Plan of Treatment Not on file Care Teams Team MemberRelationshipSpecialtyStart DateEnd Date Carlyle Ramon MD [facility] - Kmeuxvj07/20/11
--- OUTSIDE RECORDS SUMMARY | 2025-02-24 08:02 | XMS_ITS | CCD ---
Author Organization [facility] Care Team Providers Care Environmental Director Name Role Phone Unavailable Primary Care Provider An Mora DMD, MD, Barby Unavailable PROVIDER, UNKNOWN Admitting Unavailable PROVIDER, UNKNOWN Attending Unavailable YU FU Referring Unavailable PROVIDER, UNKNOWN Admitting Unavailable PROVIDER, UNKNOWN Attending Unavailable BARBY MORA Referring Unavailable BARBY MORA Admitting Unavailable BARBY MORA Attending Unavailable PROVIDER, UNKNOWN Admitting Unavailable PROVIDER, UNKNOWN Attending Unavailable Unavailable Primary Care Provider Haley Ridley MD Attending Provider Shabbir Kraus MD Attending Provider [phone] Shabbir Kraus Attending Unavailable Shabbir Kraus Admitting Unavailable Haley Dickerson Attending Unavailable Haley Dickerson Admitting Unavailable VASILE AKERS Attending Unavailable VASILE AKERS Attending Unavailable Medications Current Medications MedicationDrug Class(es)DatesSig (Normalized)Sig (Original)acetaminophen 500 mg oral tablet (1 source)Start: 16-28-5193liwfpwvncitqa (TYLENOL) tabletacetaminophen 325 mg / HYDROcodone bitartrate 5 mg oral tablet (1 source)Opioid AgonistStart: 03-22-2023 End: 32-02-3909lynq 1 tablet by mouth every six hours as needed for pain hydrocodone-acetaminophen ([place]) 5-325 mg per tablet Indications: Pain following oral surgery Take1 Tablet by mouth every 6 hours as needed for Pain for up to 3 days. 12 Tablet 0 03/22/2023 03/25/2023 Activealbuterol 0.83 mg/ml inhalation solution (1 source)beta2-Adrenergic AgonistStart: 03-22-2023 End: 45-24-5122vsnemfncv (PROVENTIL) (2.5 MG/3ML) 0.083% nebulizer solution calcium chloride 0.0014 meq/ml / potassium chloride 0.004 meq/ml / sodium chloride 0.103 meq/ml / sodium lactate 0.028 meq/ml injectable solution (2 sources)Start: 84-93-5940ewoyfvoo ringers iv infusioncelecoxib 200 mg oral capsule (1 source)Nonsteroidal Anti-inflammatory DrugStart: 26-92-1221qkbqxxgnc (CeleBREX) capsulechlorhexidine gluconate 1.2 mg/ml mouthwash (2 sources)Start: 03-22-2023 End: 36-17-0950gabitygdimxht (Peridex) 0.12 % oral solution Take 15 mL by mouth 2 times daily (after meals) for 7 days. Swish and spit 15ml BID after meals. Rinse for 30 seconds and then gently spit. Do not swallow. 473 mL 0 03/22/2023 03/29/2023 ActiveStart: 68-21-6857ghjhakwbivkck (PERIDEX) 0.12 % oral solution Ethinyl Estradiol / Ferrous fumarate / Norethindrone (4 sources)EstrogenStart: 01-20-2025 End: 21-94-2837wsdaaypfmwlyw-ethinyl estradiol (04/20) 1-20 MG-MCG tablet Indications: Miscarriage (HHS-HCC) Take 1 tablet by mouth Daily 28 tablet 11 01/20/2025 01/20/2026 ActiveStart: 31-71-4905qrovimdxhyjac-ethinyl estradiol (04/20) 1-20 MG-MCG tablet Take 1 Tablet by mouth daily. 0 03/02/2023 ActivefentaNYL (SUBLIMAZE) 50 MCG/ML injection (2 sources)Start: 43-92-5583ewoeeFZZ (SUBLIMAZE) 50 MCG/ML injectionStart: 54-38-5218zvljdFJD (SUBLIMAZE) 50 MCG/ML injectionibuprofen 600 mg oral tablet (1 source)Nonsteroidal Anti-inflammatory DrugStart: 03-22-2023 End: 83-05-1114ptsi 1 tablet by mouth every six hours as needed for pain ibuprofen (MOTRIN) 600 MG tablet Take 1 Tablet by mouth every 6 hours as needed for Pain for up to 7 days. 28 Tablet 0 03/22/2023 03/29/2023 Active1 ml naloxone hydrochloride 0.4 mg/ml injection (1 source)Opioid AntagonistStart: 39-20-7225jnqaquyu (NARCAN) 0.4 MG/ML injection2 ml ondansetron 2 mg/ml injection (1 source)Serotonin-3 Receptor AntagonistStart: 03-22-2023 End: 50-16-4644hswcifahufp (ZOFRAN) 4 MG/2ML injectionoxyCODONE hydrochloride 5 mg oral tablet (1 source)Opioid AgonistStart: 03-22-2023 End: 50-55-6272muaBNTBFX immediate release tabletProgesterone 200 MG suppository (5 sources)Start: 12-23-2024 End: 02-06-1742Dlvqcxvndnjl 200 MG suppository Indications: History of miscarriage Insert 200 mg into the vagina at bedtime Insert suppository vaginally every night at bedtime until 12 weeks gestation 30 suppository 3 12/23/2024 01/22/2025 Blalas51 hr scopolamine 0.0139 mg/hr transdermal system (1 source)AnticholinergicStart: 03-22-2023 End: 22-83-0015ykouggglsda (TRANSDERM-SCOP) 1 MG/3DAYS patchsertraline 50 mg oral tablet (11 sources)Serotonin Reuptake Inhibitortake 1 tablet by mouth once daily in the morningsertraline (Zoloft) 50 MG tablet TAKE 1 TABLET BY MOUTH ONCE DAILY IN THE MORNING FOR 30 DAYS Active Completed/Discontinued Medications MedicationDrug Class(es)DatesSig (Normalized)Sig (Original)ceFAZolin 2000 mg injection (3 sources)Cephalosporin AntibacterialStart: 02-06-2023 End: 27-17-2789qoIVJobrd (ANCEF) 2,000 mg in dextrose 50 mL ivpbStart: 02-06-2023 End: 25-67-9526rpVCJibjb (ANCEF) 2,000 mg in dextrose 50 mL ivpbStart: 02-06-2023 End: 66-65-3189stPNOdhgo (ANCEF) 2,000 mg in dextrose 50 mL ivpb Problems Problem ClassificationProblemDateDocumented DateEpisodic/ChronicCoagulation and hemorrhagic disorders (2 sources)Blood coagulation disorder; Translations: [Hemorrhagic condition, unspecified]62-67-5853UqmkabejQfnlverwx of teeth and jaw (13 sources)Disorder of teeth and supporting structures, unspecified; Translations: [Unspecified disorder of the teeth and supporting structures] Onset: 02-05-2023 Resolved: 76-69-8336DcaetmjnGobmsfcvny during ; abruptio placenta; placenta previa (2 sources)Threatened miscarriage in first trimester; Translations: [Threatened ]54-77-3580FzhnjyhwVchiw aftercare (2 sources)Post-discharge follow-up; Translations: [Encounter for follow-up examination after completed treatment for conditions other than malignant neoplasm]04-63-2590UfwjuvtrUqqmh female genital disorders (2 sources)Recurrent loss; 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1601G>A (p.Gjz303Fyu) - Not Detected This result is not associated with an increased risk for venous thromboembolism. See Additional Clinical Information and Comments. Additional Clinical Information: Venous thromboembolism is a multifactorial disease influenced by genetic, environmental, and circumstantial risk factors. The c.1601G>A (p. Seg806Nbp) variant in the F5 gene, commonly referred [...] c.*97G>A variant and Factor V Leiden (PMID: 40722812). Additional risk factors include but are not [...] or recurrence of a thrombotic event. Comment: Genetic counseling is recommended to discuss the potential clinical implications of positive results, as well as recommendations for testing family members. Genetic Coordinators are available for health care providers to discuss results at [phone] ([phone]). Test Details: Variant Analyzed: c.1601G>A (p. Mpo697Vin), referred to as Factor V Leiden Methods/Limitations: DNA analysis of the F5 gene (NM_000130.5) was [...] samples, or erroneous representation of family relationships. This test was developed and its performance characteristics determined by [employer]. It has not been cleared or approved by the Food and Drug Administration. References: Ni S, Sana AK, Santiago R, Bryan WW, Fidencio JH; ACMG Professional Practice and Guidelines Committee. Addendum: [employer] consensus statement on factor V Leiden mutation testing. Lula Med. 2020Jun 03. doi: 10.1038/h12764-279-93226-c. PMID: 20218135. Nader GROSSMAN. Factor V Leiden Thrombophilia. 1998August 12 (Updated 2017Apr 04). In: Ravi MP, Shahla HH, Sam RA, et al., editors. SofiejosiahdeanaTuenti TechnologiesJadaKubi Mobi ([employer]). Acme ([place]): [facility], Acme; 1745-5483. Available from: https://www.ncbi.nlm.nih.gov/books/SZC2705/ Dash S, Sana AK, Chip X, Anjel B, Annmarie EB, Edith P, Wilfredo CS; ACMG Laboratory Asset Protection Professional Committee. Venous thromboembolism laboratory testing (factor V Leiden and factor II c. *97G>A), 2018 update: a technical standard of the [employer] College [employer]etics and Genomics (ACMG). Lula Med. 2018 Mar;20(12): 6263-0197. doi: 10.1038/a02932-399-9467-p. Epub 2017Jan 03. PMID: 39690146. [facility] REVIEWED BYComment.NOMS HealthcareComment on above:Technical Component performed at [facility] [place] Professional Component performed by: Gabriela Barfield, PhD, [facility] [id number], [facility], [address] [place] [address] Performed at: - [facility] [place] [address], [place], [place] [id number] Pelletizer: Jose Doherty [facility], Phone: [phone] CLINISYNCNORI HealthcareARBOUR-[facility] PREG QUANT HCGon 78-68-1681MPK QJXZRTDKVARN5bLW/mL NOMS HealthcareComment on above:5-50 0.2-1 WEEK 50-500 1-2 WEEKS 100-5,000 2-3 WEEKS 500-10,000 3-4 WEEKS 1,000-50,000 4-5 WEEKS 10,000-100,000 5-6 WEEKS 15,000-200,000 6-8 WEEKS 10,000-100,000 2-3 MONTHS CLINISYNCNOMS HealthcareTB PREG QUANT HCGon 66-90-9872SJA QLGNKQCFELVY22wLS/mL NOMS HealthcareComment on above:5-50 0.2-1 WEEK 50-500 1-2 WEEKS 100-5,000 2-3 WEEKS 500-10,000 3-4 WEEKS 1,000-50,000 4-5 WEEKS 10,000-100,000 5-6 WEEKS 15,000-200,000 6-8 WEEKS 10,000-100,000 2-3 MONTHS CLINISYNCNOMS HealthcareUrine Cultureon 58-10-1379Lehdwylm identified Cx Nom (U) >100,000 colonies/ml mixed bacterial skin contaminants 2 Days PERFORMED BY: [address] [place] [address] PATHOLOGIST HARBOR POLICE LIEUTENANT KLAUDIA CH M.D.NormalAdventhealth Fish Memorial Physician GroupComment on above: Performed By: #### CUU #### [facility] [address] [place] [address] USATBH PREG QUANT HCGon 47-37-7328TIK AOHETDHOFQLI3hRP/mLNOMS HealthcareComment on above:5-50 0.2-1 WEEK 50-500 1-2 WEEKS 100-5,000 2-3 WEEKS 500-10,000 3-4 WEEKS 1,000-50,000 4-5 WEEKS 10,000-100,000 5-6 WEEKS 15,000-200,000 6-8 WEEKS 10,000-100,000 2-3 MONTHS CLINISYNCNORI HealthcareHCG ( test) Ql (U)on 28-19-8546Yyasdcnmlmdapz and review of laboratory resultsAbnormalNORI HealthcarePreg Test, UrPositive NegativeNOMS HealthcareNORI HealthcareUrinalysis macro (dipstick) panel (U)on 15-80-9749Ghpwscoch, UANegativeNegative - 4(70) +++ mg/dLNOMS HealthcareBlood, UAPositiveNegative - 50 Krishna/mcLNOMS HealthcareComment on above:largeClarity, UA ClearNOMS HealthcareColor, UAYellowNOMS HealthcareGlucose, UANegativeNegative - 2000(110) ++++ mg/dLNOMS HealthcareInterpretation and review of laboratory resultsAbnormalNORI HealthcareKetones, UANegativeNegative - 160(16) ++++ mg/dL NOMS HealthcareLeukocytes, UANegativeNegative - 500+++ Duc/mcLNOMS Healthcare Nitrite, UANegativeNegative - PositiveNOMS HealthcarepH, UA5.55 - 9NOMS HealthcareProtein, UANegativeNegative - 2000(20) ++++ mg/dLNOMS HealthcareSpec Grav, UA1.011 - 1.03NOMS HealthcareUrobilinogen, UA0.20.2 - 12 mg/dLNOCarondelet HealthNOMS HealthcareTBH PREG QUANT HCGon 87-08-0349ZXW XPCHNLIEWREQ95qBC/mL NOMS HealthcareComment on above:5-50 0.2-1 WEEK 50-500 1-2 WEEKS 100-5,000 2-3 WEEKS 500-10,000 3-4 WEEKS 1,000-50,000 4-5 WEEKS 10,000-100,000 5-6 WEEKS 15,000-200,000 6-8 WEEKS 10,000-100,000 2-3 MONTHS CLINISYNCNORI HealthcareUrine Cultureon 40-82-1027Mwcpwsji identified Cx Nom (U) >100,000 colonies/ml mixed bacterial skin contaminants 2 Days PERFORMED BY: [place] [address] PATHOLOGIST HARBOR POLICE LIEUTENANT LOLITA BHANDARI M.D.NormalThe [facility] Physician GroupComment on above: Performed By: #### CUU #### [place] [address] USAProgress Noteson 01-64-2595Decutrxsygafs Eco Productsation Interface Message TextCalled the patient and received no answer. left with instructions to call [facility].NormalThe [facility] SystemAnesthesia Postprocedure Evaluationon 18-80-0325Wruhcjzyqyxzd Eco Productsation Interface Message TextAnesthesia Postoperative Assessment: Vital Signs [...] acceptable ANESTHESIA NOTABLE EVENTS: No notable events documented.NormalThe [facility] CenterroNewark [facility] SystemAnesthesia Transfer Of Careon 34-99-3462Adahruydqhrgs Authentication Interface Message TextPatient taken to PACU. [...] of the report was received. Alex [place] Baptist HospitalCenzic SystemBlood Attestationon 03-22-2023 Administrative Law Judge Authentication Interface Message Patient Feed Attestation: ATTESTATION OF INFORMED CONSENT FOR BLOOD: The transfusion of blood and/or blood components were discussed with the patient and/or legal medical customer service representative. The risks, benefits and alternatives were reviewed. Questions regarding blood transfusions were answered. The patient /or the patient's legal medical customer service representative agree with the plan for transfusion of blood and/or blood components.NormalThe [facility] SystemOP Noteon 33-03-9949Zemrdmglqsjcn Authentication Interface Message Shop [facility] Division of diesel engineer [address] [place] [address] Dr. [place] [address] OPERATIVE NOTE Name: Rand Jackson MR#: [id number] ENC#: Data Unavailable Surgical Case #: Data Unavailable Date of Procedure: 03/22/2023 ? PREOPERATIVE DIAGNOSIS: Abnormal tooth eruption (Primary Diagnosis) [115352] Pain following oral surgery [7031168] ? POSTOPERATIVE DIAGNOSIS: Abnormal tooth eruption (Primary Diagnosis) [400462] Pain following oral surgery [[id number]] OPERATION: FULL BONY IMPACTION [D7240] ? ATTENDING [...] transferred onto the operating room table under thier own power. The patient was then [...] Alveolar bone removal was accomplished with a [employer] surgical drill and irrigation. Teeth #17, 32 [...] procedure. ? ? ? Barby Mora DMD, Sonny [facility] SystemURINE HCG-IN OFFICEOrdered By: Negro Carver on 51-65-2343TVI ( test) Ql (U)NegativeNegative MetroHealthInterpretation and review of laboratory resultsNormalMetroHealth Negative Internal ControlNegativeNegativeMetroHealthPositive Internal Control PositivePositiveMetroHealthMetroHealthAnesthesia Preprocedure Evaluationon 12-98-3041Pwamyndkcbzeg Authentication Interface Message TextASA: 2 NPO status: Greater than 8 hours Past Medical History and Review of Systems Pulmonary (+) asthma, a smoker Comment: Marijuana abuser Dental - negative ROS Endo - negative ROS ophthalmic surgeon - negative ROS Neuro/Psych - negative ROS [...] were discussed with the patient and/or legal medical customer service representative. The risks, benefits and alternatives were reviewed. Questions regarding anesthesia were answered. Patient and/or legal medical customer service representative knows such anesthetics and procedures may be performed by Resident physicians, Certified Anesthesiologist Assistants, or Certified Nurse Anesthetists under the supervision of a physician. The patient /or the patient's legal medical customer service representative agree with the plan for anesthesia.NormalThe [facility] SystemPSE Call H AND P on 04-89-8056Zytnxtfqlpifi Authentication Interface Message TextTelephone History Rand Jackson, [id number] 03/12/2023 Patient was identified by name and [...] Telephone history prior to the surgery at [facility], [address] [place] [address], enter through the main entrance, check-in at [...] Performing this Telephone History: 20 with call [place] [facility] TechnologyChillicothe HospitalNationwide Specialty FinancePatient Instructionson 17-83-3615Gcfojcuoaeuep Authentication Interface Message TextOral Surgery General anesthesia [...] of surgery. 12. Do not wear: nail romanian, contact lenses, jewelry. 13. Do wear: loose clothes with short sleeves, long pants, shoes (no high heals). 14. Please call our office to cancel your appointment if you feel sick. Following is the address to the surgery center: [facility] [address] [place] [address]. [place] [address] EvebbeBlb [facility] SystemProgress Noteson 81-20-4883Brrbvqnvtaplw Authentication Interface Message TextNoDemandTecChillicothe HospitalXATA [facility] SystemTranscription Authentication Interface Message Text Attestation with [...] DMD, MD OMFS PATIENT VISIT CHIEF COMPLAINT: Lowman Teeth HISTORY OF PRESENT ILLNESS: 17 yo [...] 16 ,17, and 31 [facility] [place] [facility] Vital Signs Date TimeVital SignValuePerforming CzlhbkzirLpyjqrfs84-32-3020 13:56-0400Body jbagto919.6 cmCorey Oswald DO Work Phone: [phone] [place], [place] 5560510-22-2025 13:56-0400Body mass index (BMI) [Ratio]20.6 kg/a4Dinhv Oswald DO Work Phone: [phone] [place], [place] 5560510-22-2025 13:56-0400Body rxhqaj38.43 kgCorey Oswald DO Work Phone: [phone] [place], [place] 5560510-22-2025 13:56-0400Diastolic blood mm[Hg]Vasile Oswald DO Work Phone: [phone] [place], [place] 5560510-22-2025 13:56-0400Systolic blood jgesvplf551 mm[Hg]Vasile Oswald DO Work Phone: [phone] [place], [place] [address]Fuanyvtkdg99-02-5819 15:28-0400Body rgexoj74.53 kgCorey Oswald DO Work Phone: [phone])[facility] [place], [place] [address]Tlzvivdsph45-32-3504 15:28-0400Diastolic blood mfhyzabi07 mm[Hg]Vasile Oswald DO Work Phone: [phone] [place], [place] 5560504-23-2025 15:28-0400Systolic blood facbftxt16 mm[Hg]Vasile Oswald DO Work Phone: [phone])[address] [place], [place] 5560512-22-2023 12:00-0500Diastolic blood uvjtjuxb15 mm[Hg]Barby Mora DMD, MD Work Phone: [phone]fIpqaor75-56-3510 12:00-0500Heart rate85 /minPesheri Mora DMD, MD Work Phone: [phone]mDlfgrp51-71-5150 12:00-0500Respiratory rate14 /minBarby Mora DMD, MD Work Phone: [phone]tVffovy72-18-9140 12:00-1822KoV2% (BldA) [Mass fraction]100 %Barby Mora DMD, MD Work Phone: [phone]dGkebpa09-10-3277 12:00-0500Systolic blood toptawxo103 mm[Hg]Barby Mora DMD, MD Work Phone: [phone]hCydhrg14-95-0636 11:21-0500Body qjjhvyeuiqc23.91 [degF]Barby Mora DMD, MD Work Phone: [phone]lTckcsp24-27-6455 10:04-0500Body kyvqod744.6 cm Barby Mora DMD, MD Work Phone: [phone]mUlxrej57-19-7388 10:04-0500Body mass index (BMI) [Percentile] Per age and sex38.42 %Barby Mora DMD, MD Work Phone: [phone]fZeprfd20-67-9902 10:04-0500Body mass index (BMI) [Ratio]20.6 kg/w5EvvkjBarby Mora DMD, MD Work Phone: [phone]oCyycvi96-18-9023 10:04-0500Body mijmjk25.43 kg Barby Mora DMD, MD Work Phone: [phone]pJxjgbx35-57-3745 10:00-0500Body .6 cm Iwona Loomis ZRPqktaXxagqx12-24-9006 10:00-0500Body mass index (BMI) [Percentile] Per age and sex40.85 %Iwona Loomis DQOjdwkNzlmhf78-03-3793 10:00-0500Body mass index (BMI) [Ratio]20.77 kg/y6XjkdbgkhIwona Loomis RNMetroHealth 03-12-2023 10:00-0500Body mhayaw95.88 kgIwona Loomis RNMetroHealth Encounters Encounter DateEncounter TypeCare ProviderFacilityStart: 01-20-2025 End: 93-03-6527Wwlrwv flowsheetCorey Oswald DO Work Phone: [facility] [place] [facility]BGYNStart: 01-20-2025 End: 36-60-2391Krxknx flowsheetCorey Oswald DO Work Phone: [facility] [place] [facility]BGYNStart: 01-20-2025 End: 96-51-9688Eqzoqodzc Result EncounterCorey Oswald DO Work Phone: noms External Department UnsolicitedStart: 01-20-2025 End: 52-82-3105Snonvx outpatient visit 15 minutesCorey Oswald DO Work Phone: [facility] [place] OBGYNComment on above:Miscarriage [facility] History of multiple miscarriages; Bleeding disorderStart: 01-20-2025 End: 99-74-0462nuxtklpqjzYFOEV FAZIONot AvailableStart: 01-07-2025 End: 55-01-8992Qffoyzxen Result EncounterKristina Alice COMP FIELD CASE MANAGER Work Phone: noms External Department UnsolicitedStart: 01-07-2025 End: 59-81-5266Pguujbzdk Result EncounterKristina Alice COMP FIELD CASE MANAGER Work Phone: noms External Department UnsolicitedStart: 12-31-2024 End: 67-95-2590Grmuwmqxq Result EncounterKristina Alice COMP FIELD CASE MANAGER Work Phone: noms External Department UnsolicitedStart: 12-31-2024 End: 93-38-4269Yenpesgmm Result EncounterKristina Alice COMP FIELD CASE MANAGER Work Phone: noms External Department UnsolicitedStart: 10-22-2024 End: 06-81-3027ektbdbienyGdmi [facility] HospitalashwinSub[facility] Work Phone: Start: 10-22-2024 End: 41-17-3874Flawczox ReferredSyed Efra WOODSON-LAB Path Spec Reyes HospStart: 07-29-2024 End: 85-26-1311Brmaxfxrq Result EncounterCorey Oswald DO Work Phone: noMS External Department UnsolicitedStart: 07-29-2024 End: 57-95-2612Boqpsazlt Result EncounterCorey Oswald DO Work Phone: noms External Department UnsolicitedStart: 07-22-2024 End: 44-72-2752xqyrlueniaQPRIF FAZIONot AvailableStart: 07-22-2024 End: 21-27-9729Plynjs outpatient visit 15 minutesCorey Oswald DO Work Phone: noms [facility] OBComment on above:Hospital discharge follow-up; Miscarriage, threatened, early pregnancyStart: 07-22-2024 End: 69-14-1298Ajbcqa flowsheetCorey Oswald DO Work Phone: [facility] OBStart: 07-22-2024 End: 13-88-4870Czrxrt flowsheetCorey Oswald DO Work Phone: n[facility] BCP OBStart: 07-21-2024 End: 65-26-0692Yepumvtpq Result EncounterCorey Oswald DO Work Phone: noms External Department UnsolicitedStart: 07-21-2024 End: 77-33-0800Oersgjhur Result EncounterCorey Oswald DO Work Phone: noms External Department UnsolicitedStart: 07-18-2024 End: 28-89-4646betemacqnqKoajyc A [facility] Work Phone: Start: 07-18-2024 End: 56-06-6810Ddhjcbdk Renée Dickerson MD Work Phone: [facility]-LAB Path Spec [place] HospStart: 78-56-0298eqahzebgrgGRIDNCZ PROVIDERFacility:METROHealthStart: 03-22-2023 End: 07-65-6411vwyafpvqiiVVZFH OLIVIERIFacility:METROHealthStart: 03-22-2023 End: 65-63-9633Wzexjtgvnp hospital visit by physicianBarby Mora DMD, MD Work Phone: [facility] ORComment on above: Abnormal tooth eruption (Primary Dx); Pain following oral surgeryStart: 03-12-2023 End: 20-07-8288Azizqozarhgwg examination donePaanders Loomis RNMetroNewark HospitalStart: 03-12-2023 End: 12-86-1550Bwovzpish encounterPaanders Loomis [facility] [place] Pre- Surgical EvaluationComment on above:ArrivedStart: 33-12-5812fazehngimyHMOLGDL PROVIDERFacility:[facility] HospitalStart: 05-49-8733Qwzmdmzdd for other preprocedural examinationUNKNOWN PROVIDERThe [facility] SystemStart: 71-96-3328Ufjnnz encounterPesheri Mora DMD, MD Work Phone: [facility] Oral SurgeryStart: 81-53-3844bvjykhvqbe UNKNOWN PROVIDERFacility:[facility] HospitalStart: 02-05-2023 End: 61-68-0448Lyczlci encounter procedureBarby Mora DMD, MD Work Phone: [facility] Oral SurgeryComment on above:Abnormal tooth eruption (Primary Dx)Start: 30-36-1531Pfmjluommh OrdersCocesar Fu DDS Work Phone: [facility] Physician Referral Service Procedures DateProcedureProcedure DetailPerforming ClinicianStart: 45-35-3910HVOKFB Yevgeniy JOYA MUTATIONCorey Oswald DO Work Phone: Start: 06-78-9639UES PREG QUANT HCGKristina Alice COMP FIELD CASE MANAGER Work Phone: Start: 40-51-3016IXG PREG QUANT HCGKristina Alice COMP FIELD CASE MANAGER Work Phone: Start: 60-59-4949EHX PREG QUANT HCGCorey Oswald DO Work Phone: Start: 06-63-5618Okpkw dip stick/tablet rgnt non-auto w/o micrscpCorey Oswald DO Work Phone: Start: 41-99-8518YQD PREG QUANT HCGCorey Oswald DO Work Phone: Start: 81-22-3010Zpvkb test visual color cmprsn Peng Hartmann DDS Work Phone: Plan of Treatment DateCare ActivityDetailAuthorStart: 47-65-8771Lxneadm,Diptheria,Pertussis Vaccine (7 - Td or Tdap)Tetanus,Diptheria,Pertussis Vaccine (7 - Td or Tdap) [facility]Start: 01-20-2025 End: 36-36-4913Davdgckzuvcs IIIAntithrombin III Lab Routine Bleeding disorder Expected: 01/20/2025 (Approximate), Expires: 01/20/2026RI HealthcareComment on above:Expected: 01/20/2025 (Approximate), Expires: 01/20/2026Start: 01-20-2025 End: 19-30-1049Blpg-2 glycoprotein antibodiesBeta-2 glycoprotein antibodies Lab Routine Bleeding disorder Expected: 01/20/2025 (Approximate), Expires: 01/20/2026RI HealthcareComment on above:Expected: 01/20/2025 (Approximate), Expires: 01/20/2026Start: 01-20-2025 End: 84-61-8199Sdqwyfvzqwp antibody, IgGCardiolipin antibody, IgG Lab Routine Bleeding disorder Expected: 01/20/2025 (Approximate), Expires: 01/20/2026NORI HealthcareComment on above:Expected: 01/20/2025 (Approximate), Expires: 01/20/2026Start: 01-20-2025 End: 36-63-8608Vetykevlmou antibody, IgMCardiolipin antibody, IgM Lab Routine Bleeding disorder Expected: 01/20/2025 (Approximate), Expires: 01/20/2026NORI HealthcareComment on above:Expected: 01/20/2025 (Approximate), Expires: 01/20/2026Start: 01-20-2025 End: 65-21-5234RHQGTZMDQT Lab Routine Bleeding disorder Expected: 01/20/2025 (Approximate), Expires: 01/20/2026NORI HealthcareComment on above:Expected: 01/20/2025 (Approximate), Expires: 01/20/2026Start: 01-20-2025 End: 40-34-7693Hendcy 5 leidenFactor 5 leiden Lab Routine Bleeding disorder Expected: 01/20/2025 (Approximate), Expires: 01/20/2026[facility] Healthcare Work Phone: comment on above:Expected: 01/20/2025 (Approximate), Expires: 01/20/2026Start: 01-20-2025 End: 26-99-5947Tepunsk encounter nduuhwxdb01/22/2025 2:00 PM EDT Office Visit JUL[facility] O[facility] [address] [place] [address] Vasile Akers DO [address] [place] Chambers, [place] [id number] ArrivedNORI Reyes OBGYNComment on above:ArrivedStart: 01-20-2025 End: 16-35-9937Yhhuyhi [Mass/volume] in Serum or PlasmaProtein, total Lab Routine Bleeding disorder Expected: 01/20/2025 (Approximate), Expires: 01/20/2026[facility] HealthcareComment on above:Expected: 01/20/2025 (Approximate), Expires: 01/20/2026Start: 01-20-2025 End: 98-31-7003Ckmdvnf C activityProtein C activity Lab Routine Bleeding disorder Expected: 01/20/2025 (Approximate), Expires: 01/20/2026[facility] Healthcare Comment on above:Expected: 01/20/2025 (Approximate), Expires: 01/20/2026Start: 01-20-2025 End: 00-68-6809Pxqdodn S antigen, freeProtein S antigen, free Lab Routine Bleeding disorder Expected: 01/20/2025 (Approximate), Expires: 01/20/2026NORI HealthcareComment on above:Expected: 01/20/2025 (Approximate), Expires: 01/20/2026Start: 01-07-2025 End: 89-34-0736jipjjusziu85/09/2025 1:30 PM EDT Initial [facility] Re[facility]BG[facility] [address] [place], [place] QPRR [place] OBGYNStart: 01-07-2025 End: 32-93-5741Lztwmtbyqcyy / ancillary services mzvnwgfaff81/09/2025 1:00 PM EDT Ancillary Procedure [facility] Reyes ROBINN [address] [place] [address] QJIA Reyes OBGYNStart: 21-48-7949Kauwd culture [facility] Hospitaltart: 97-73-1086Sycwceor identified in Urine by CultureUrine [facility] Hospitaltart: 07-31-2024 End: 57-57-7929qzvgzuevlz72/02/2025 11:00 AM EDT Initial [facility] B[facility] OB [address] [place] [address] YGLC BCP OBStart: 07-31-2024 End: 74-24-7613Fwgkvjmpitvj / ancillary services csotmkyegh50/02/2025 10:30 AM EDT Ancillary Procedure [facility] OB [address] [place], [place] [address] YAAX BCP OBStart: 07-22-2024 End: 36-46-0667Hrsvhnv encounter govxjpwta31/23/2025 3:00 PM EDT Office Visit [facility] [place] [address] [place] [address] Vasile Akers, [address] [place] [address] NOMS BCP OBStart: 02-41-2154Giwxjakb identified in Urine by CultureUrine [facility] Hospitaltart: 07-18-2024 [facility]: 03-28-2023 End: 63-17-9600Kkjpqrr encounter procedureMetroHealth Oral SurgeryStart: 03-22-2023 End: 50-50-5323Hicfzvhsb to same day surgery centerMetLarkin [facility] Ambulatory SurgeryComment on above:EXTRACTION, TOOTHStart: 03-22-2023 End: 32-02-1021DFMPZZIUYQ, TOOTHMetroHealthStart: 88-65-7031Armoxmtblr hospital visit by physicianG[facility] Ambulatory SurgeryStart: 03-12-2023 End: 74-62-5940Elymsxi evaluation of patient and vnfbch0903/12/2023 10:30 AM EST Nurse Visit [facility] Pre-Surgical Evaluation [address] [id number] Iwona Loomis RN [address] [place], [place] [address]ByuncLphnzbParkwood Hospital Pre-Surgical EvaluationStart: 16-42-0833Nibkryftc vaccinationInfluenza Vaccine (#1)[facility]HealthStart: 08-56-3156Unsxlckoy C screeningHepatitis C AntibodyMetroHealthStart: 07-44-9189Bkkhflrxj for Chlamydia trachomatisSTI Screening (Age 18-24)[facility]HealthStart: 97-82-3681Qwgyymd + diphtheria + acellular pertussis vaccine (product)Tdap BoosterMetroHealthStart: 40-82-6944Djyqgk Test (18 yrs,once)Vision Test (18 yrs,once)MetroHealthStart: 52-55-8846Jixtrxthn vaccinationInfluenza Vaccine (#1)[facility]roHealthStart: 50-74-9925Agcncddwbypsu B (Bexsero,OMV) Vaccine (Optional,16-23 years) Meningococcal B (Bexsero,OMV) Vaccine (Optional,16-23 years)[facility]HealthStart: 54-91-1204Hclllikgpimbs B (Bexsero,OMV) Vaccine (Optional,16-23 years) (#1) Meningococcal B (Bexsero,OMV) Vaccine (Optional,16-23 years) (#1)[facility] Start: 15-07-2902Rohvjdsqtqthw Conjugate (MCV4,ACWY) Vaccine (1 - 2-dose series) Meningococcal Conjugate (MCV4,ACWY) Vaccine (1 - 2-dose series)[facility]HealthStart: 51-39-7162YIP screeningHIV TestMetroHealthStart: 07-86-9045Wlrtshoagin for human papillomavirusHuman Papilloma (HPV) Vaccine (1 - 2-dose series)[facility] Start: 25-80-4542Muxparw Test (10-18 yrs,once)Hearing Test (10-18 yrs,once) [facility]HealthStart: 35-91-9533Korao panelLipid ScreeningMetroHealthStart: 88-94-4405Svmjjfa,Diptheria,Pertussis Vaccine (1 - Tdap) Tetanus,Diptheria,Pertussis Vaccine (1 - Tdap)[facility]HealthStart: 2005 Hepatitis A (HAV) Vaccine (1 of 2 - 2-dose series)Hepatitis A (HAV) Vaccine (1 of 2 - 2-dose series)[facility]HealthStart: 42-67-6071Wsoqqmw-mumps-rubella vaccinationMeasles,Mumps,Rubella (MMR) Vaccine (1 of 2 - Standard series) [facility]HealthStart: 99-21-0327Ehnbirazl vaccinationVaricella Vaccine (1 of 2 - 2- dose childhood series)[facility]HealthStart: 20-89-9382TNXXI-19 Vaccine (#1)COVID-19 Vaccine (#1)[facility]HealthStart: 06-18-5060Hogehppcq B vaccinationHepatitis B (HBV) Vaccine (1 of 3 - 3-dose series)MetroHealthEXTRACTION, TOOTHEXTRACTION, TOOTH Routine scheduled Abnormal tooth eruptionMetroHealth End: 76-22-3877bKB, quantitative, pregnancyhCG, quantitative, Lab Routine Miscarriage, threatened, early 4 Occurrences starting 07/22/2024 until 07/22/2025[facility] Healthcare Work Phone: comment on above:4 Occurrences starting 07/22/2024 until 07/22/2025Hemoglobin A1c/Hemoglobin.total in BloodHemoglobin A1c Lab Routine History of multiple miscarriages Ordered: 01/20/2025[facility] Comment on above:Ordered: 01/20/2025removal of impacted tooth - completely bony FULL BONY IMPACTION Procedures Routine Abnormal tooth eruption Ordered: 03/22/2023[facility] Work Phone: Comment on above:Ordered: 03/22/2023Thyrotropin [Units/volume] in Serum or PlasmaTSH Lab Routine History of multiple miscarriages Ordered: 01/20/2025NORI HealthcareComment on above:Ordered: 01/20/2025 Immunizations Immunization DateImmunizationNotesCare XtgrsmpdGsbhnbpo76-58-3108pdgiydsbwkibh polysaccharide (groups A, C, Y and W-135) diphtheria toxoid conjugate vaccine (MCV4P)Barby Mora DMD, MD Work Phone: [phone]rXunqwm87-50-8386Spbpq Papillomavirus 9-valent vaccineBarby Mora DMD, MD Work Phone: [phone]mXbcccn64-66-5317Dihdq Papillomavirus 9-valent vaccineBarby Mora DMD, MD Work Phone: [phone]bUnxtwk62-86-6463bxeklyyweyuwa polysaccharide (groups A, C, Y and W-135) diphtheria toxoid conjugate vaccine (MCV4P)Barby Mora DMD, MD Work Phone: [phone]mZuqoey79-48-9348vpgnjsk toxoid, reduced diphtheria toxoid, and acellular pertussis vaccine, adsorbedBarby Mora DMD, MD Work Phone: GnjmmWgtdgx85-662293TowxpXvynxy57-31-4729rblpalwsqd vaccine, inactivated Barby Mora DMD, MD Work Phone: CadxxWjhudn18-434992WpnxpCeqpmo77-71-1215wfyrvzm, mumps and rubella virus vaccineBarby Mora DMD, MD Work Phone: [phone]kNuemjg97-19-4856fbrajip toxoid, reduced diphtheria toxoid, and acellular pertussis vaccine, adsorbedBarby Mora DMD, MD Work Phone: [phone]dAsbrjb67-29-5614fjytyobdw virus Amador Mora DMD, MD Work Phone: OxnuiIrxupt47-850367CubumQrtsky43-15-9668omjvtiubl virus vaccine, live, attenuated, for intranasal useBarby Mora DMD, MD Work Phone: [phone]xCsswrm09-86-5097mkwbxgiem virus vaccine, unspecified formulationBarby Mora DMD, MD Work Phone: KzflqAacrzi86-118257NxwxcBbmedj91-85-6828czpkrwcmc, seasonal, injectable, preservative freeBarby Mora DMD, MD Work Phone: IpvheTacbex53-310306InzndWvldtb42-99-0352wbknfnpis A vaccine, pediatric/adolescent dosage, 2 dose scheduleBarby Mora DMD, MD Work Phone: GqrubUhzzos95-332302FbemgOnqzpg83-79-1492epicppypt A vaccine, pediatric/adolescent dosage, 2 dose scheduleBarby Mora DMD, MD Work Phone: YwrswCazbah42-527989SyldrIdklom26-36-6479qcoknteiut, tetanus toxoids and acellular pertussis vaccine, 5 pertussis antigensBarby Mora DMD, MD Work Phone: ObgsaPnjqyu10-214806OkazzZvanmm80-33-7960pcdwuwblwcg influenzae type b vaccine, PRP-T conjugateBarby Mora DMD, MD Work Phone: LpjemSyigyg88-041422UwpvcUnuqds67-71-2945dszotdk, mumps and rubella virus vaccineBarby Mora DMD, MD Work Phone: TzuwzKjpcdo41-973259NqpzcGgtlef29-04-7568pchwntqmoerw conjugate vaccine, 7 valentBarby Mora DMD, MD Work Phone: NxzurPjwzra84-978616LhzwmYwwvba56-60-7835cngnptpwb virus vaccineBarby Mora DMD, MD Work Phone: RzxctJiodbg43-518354UrpyhJyqjxa35-87-0167PZeV-quwqstpop B and poliovirus vaccineBarby Mora DMD, MD Work Phone: NavocCelahj84-792767LvnmkSsakfv29-87-1626tfhmrtqnyyk influenzae type b vaccine, PRP-T conjugateBarby Mora DMD, MD Work Phone: NkgsmYpesnz17-267475AdlhiHihsni58-10-9835uncqldvnmtpr conjugate vaccine, 7 valentBarby Mora DMD, MD Work Phone: MkthgHzjcsm77-691211OlbdgMuwtay97-78-1612WSyB-gzgagyjmh B and poliovirus vaccineBarby Mora DMD, MD Work Phone: EndlpMpnzte99-102967OdwndTjumwl83-84-8964bfjgynhkglu influenzae type b vaccine, PRP-T conjugateBarby Mora DMD, MD Work Phone: DztiyArnbkk49-618004PkuzvEzbjxp83-85-1120hjxuwppckuwz conjugate vaccine, 7 valentBarby Mora DMD, MD Work Phone: PcjvxGnlwvb36-715109DphxiLkbhpx61-02-6691OVeN-iddgievhh B and poliovirus vaccineBarby Mora DMD, MD Work Phone: YrvtvEvhtrk16-403535EkbbcUiszsp47-68-7669sitlianioda influenzae type b vaccine, PRP-T conjugateBarby Mora DMD, MD Work Phone: NgprtPeifbl38-191512HtqtpNevzoq21-13-9132ydfexyzhvcvp conjugate vaccine, 7 valentBarby Mora DMD, MD Work Phone: [facility] Payers DatePayer CategoryPayerPolicy [id number]-pay2024Medicaid (Managed Care)[employer] Member Subscriber Plan / Payer (Effective 2023-Present) Name: Elvie Jacksonana Bg Relation to Subscriber: Self Name: Elvie Jacksonana gB Payer ID: Not on file Group ID: Not on file Type: Not on file Address: [address] [id number] 30-65-9377Tttoaom4.2.840.246286.1.13.56.2.7.3.560685.94433-78-8411Tjsowgu [id number] ..840.1.536089.3.579.2. [id number] 05.17.830.1.992847.3.57[id number] 2.16.840.1.852357.3.57[id number] 2.16.840.1.407137.3.57[id number] 2.16.840.1.008707.3.57[id number] 2.16.840.1.933304.3.579.2.1259 Social History DateTypeDetailFacilityTobacco smoking status NHISTobacco smoking consumption unknownMetroHealth Work Phone: Start: 71-96-9927Kiy Assigned At BirthNot on file MetroHealthGender identityNot on fileMetroHealthStart: 44-40-1833Javeetf smoking status NHISSmokes tobacco dailyMetroHealthHistory of tobacco useSmoker (finding)MetroHealthStart: 27-47-3576Worhjry use and exposureSmokeless tobacco non-userMetroHealthStart: 69-26-7020Nbimbzs intakeEx-drinker (finding) MetroHealthStart: 79-44-4478AwiEgchqf (finding)[facility] Start: 21-05-6139Ast Assigned At [facility] Start: 90-64-7270XsfJkxzmvRSZSRegency Hospital of [facility] Clinical Notes 02-05-2023 to 01-20-2025 Note Date & SzcyVbzeNimmgxqe42-83-4622 History of Present illness Narrative* Sissy Carias, MAKAYLA - 01/20/2025 2:00 PM EDT Reason for Appointment: Patient ID: Rand Jackson is a 19 y.o. female who presents for Miscarriage (Pt present today fora f/up miscarriage visit. ) Patient presents today for Acute Visit. MEDICATIONS Current Outpatient Medications Medication Instructions Progesterone 200 mg, Vaginal, Nightly, Insert suppository vaginally every night at bedtime until 12weeks gestation sertraline (Zoloft) 50 MG tablet TAKE 1 [...] No family history on file. SURGICAL HISTORY No past surgical history on file. REVIEW OF SYSTEMS Review of Systems: Review [...] nursing note reviewed. Exam conducted with a data services developer present. Vitals: Estimated body mass index is 20.6 kg/m as calculated from the following: Height as of this encounter: 5' 4 . Weight as of this encounter: 120 lb. BP: 100/60 No LMP recorded. Assessment/Plan ICD-10-CM 1. Miscarriage ([facility]) O03.9 2. History of multiple miscarriages N96 Patient presents today to follow up after a recent miscarriage. I have discussed HCG lab levels andmiscarriage with patient in detail. Rx for Junel faxed to pharmacy. Pt given labs to have obtained d/t multiple miscarriages. Follow Up: As needed Documented by Sissy Carias LPN on behalf of: Vasile Oswald, DO documented in this encounterSaint [facility] Hospital[facility] RoadMqtcguktyx37-28-4730 History of Present illness Narrative* Sissy Carias LPN - 07/22/2024 3:00 PM EDT Reason for [...] nursing note reviewed. Exam conducted with a data services developer present. Vitals: There is no height or [...] of: Vasile Akers DO documented in this encounterSaint Luke's North Hospital–Barry RoadGoagcklioj80-14-4756 NoteSurgical Attestation: I have reviewed the patient's History and Physical Examination. I have personally seen and evaluated the patient, repeating noland portions. There is no significant interval change. Surgery is still indicated. Yes Consent reviewed and signed by patient/family: Yes Operative site verified and marked: n/a [facility] HospitalCenzic Cldunc13-46-6763 Surgery Surgical operation note * OP Note - Barby Mora DMD, MD - 03/22/2023 10:44 AM EST [facility] Division of diesel engineer [address] [place] [address] [address] [address] OPERATIVE NOTE Name: Rand Jackson MR#: [id number] ENC#: Data Unavailable Surgical Case #: Data Unavailable Date of Procedure: 03/22/2023 ? PREOPERATIVE DIAGNOSIS: Abnormal tooth eruption (Primary Diagnosis) [[id number]] Pain following oral surgery [[id number]] ? POSTOPERATIVE DIAGNOSIS: Abnormal tooth eruption (Primary Diagnosis) [204940] Pain following oral surgery [[id number]] OPERATION: FULL BONY IMPACTION [D7240] ? ATTENDING [...] and transferred onto the operating room tableunder [employer]. The patient was then placed in the [...] Alveolar bone removal was accomplished with a [employer] surgical drill and irrigation. Teeth #17, 32 [...] ? ? ? Barby Mora DMD, MD [facility] HospitalYdcyxOfqmss24-46-0625 Miscellaneous Notes* OP Note - Barby Mora DMD, MD - 03/22/2023 10:44 AM EST [facility] Division of diesel engineer [address] [place] [address] [address] [address] OPERATIVE NOTE Name: Rand Jackson MR#: [id number] ENC#: Data Unavailable Surgical Case #: Data Unavailable Date of Procedure: 03/22/2023 ? PREOPERATIVE DIAGNOSIS: Abnormal tooth eruption (Primary Diagnosis) [663718] Pain following oral surgery [[id number]] ? POSTOPERATIVE DIAGNOSIS: Abnormal tooth eruption (Primary Diagnosis) [773488] Pain following oral surgery [[id number]] OPERATION: FULL BONY IMPACTION [D7240] ? ATTENDING [...] and transferred onto the operating room tableunder [employer]. The patient was then placed in [...] Alveolar bone removal was accomplished with a [employer] surgical drill and irrigation. Teeth #17, 32 [...] were discussed with the patient and/or legal medical customer service representative. The risks, benefits and alternatives were reviewed. Questions regarding blood transfusions were answered. The patient /or the patient s legal medical customer service representative agree with the plan for transfusion of blood and/or blood components. documented in this umwzwwvbuHyuusGgfhdz18-25-6622 Hospital Discharge instructions* Discharge Instructions* Amisha Wood [...] done to speak with an oral surgeon. [facility] [phone]. HELPING THE HEALING PROCESS AND STOPPING THE [...] any questions or concerns please contact us: [facility] . Ask for the postdoctoral research fellow consulting group analyst (after hours). oral surgery physician Clinic Hours: Mon-Fri 8:30 am to 4:30 [...] and blood flow The doctor or nurse investigative assistant gives general anesthesia by a shot into [...] or approved for treating a specific patient. [employer] and its affiliatesdisclaim any warranty or liability relating to this information or the use thereof. The use of thisinformation is governed by the Terms of Use, available at https://www.[employer].com/en/know/ifrbzxdy-jtgsjqzoghmbk-onhsz Copyright Copyright 2022 [employer] and its affiliates and/or licensors. All rights reserved. documented in this ttquhtkioLpzvpCwrfuh24-97-1503 Progress note* Blood Attestation - Lloyd Pitts MD - 03/22/2023 10:15 AM EST Blood Attestation: ATTESTATION OF INFORMED CONSENT FOR BLOOD: The transfusion of blood and/or blood components were discussed with the patient and/or legal medical customer service representative. The risks, benefits and alternatives were reviewed. Questions regarding blood transfusions were answered. The patient /or the patient s legal medical customer service representative agree with the plan for transfusion of blood and/or blood components. [facility] Work Phone: [phone] 105-208812-12-2023 Evaluation note* PSE Call H&P - Iwona Lomois RN - 03/12/2023 10:40 AM EST Telephone History Rand Jackson, [id number] 03/12/2023 Patient was identified by name and [...] Telephone history prior to the surgery at [facility], [facility]. [address] [place] [address], enter through the main entrance, check-in at [...] this Telephone History: 19 with call back BdtdiUkxtfd98-15-0670 Miscellaneous Notes* PSE Call H&P - Iwona Loomis RN - 03/12/2023 10:40 AM EST Telephone History Rand Jackson, [id number] 03/12/2023 Patient was identified by name and [...] Telephone history prior to the surgery at [facility], [facility] [place] [address], enter through the main entrance, check-in at [...] 20 with call back documented in this [id number] Instructions* Patient Instructions* Madi Hartmann DDS - [...] of surgery. 12. Do not wear: nail romanian, contact lenses, jewelry. 13. Do wear: loose clothes with short sleeves, long pants, shoes (no high heals). 14. Please call our office to cancel your appointment if you feel sick. Following is the address to the surgery center: [facility] [address] [place] [address]. [place] [address] documented in this pzthqxqqoCvxglIcfsld26-20-1965 History of Present illness Narrative* Dianne Cobb - 02/05/2023 3:56 PM EST Images from the original note were not included. * Madi Hartmann DDS - 02/05/2023 3:35 PM EST OM[facility] PATIENT VISIT CHIEF COMPLAINT: Lowman Teeth HISTORY OF PRESENT ILLNESS: 17 yo [...] at Madi Hartmann DDS documented in this [id number] History of Present illness Narrative* Dianne Cobb - 02/05/2023 3:56 PM EST Images from the original note were not included. * Madi Hartmann DDS - 02/05/2023 3:35 PM EST OMFS PATIENT VISIT CHIEF COMPLAINT: Lowman Teeth HISTORY OF PRESENT ILLNESS: 17 yo [...] Miscarriage, threatened, early documented in this encounter [facility] HealthcareEvaluation noteNo assessment information availableKettering Health [facility]tr Work Phone: Evaluation note* Diagnosis Miscarriage ([facility]) Unspecified spontaneous without mention of complication History of multiple miscarriages Bleeding disorder Unspecified hemorrhagic conditions documented in this encounter [facility] RoadReason for referral (narrative)No reason for referral information availableKettering Health [facility]tr Work Phone: Reason for Referral SpecialtyDiagnoses / ProceduresReferred By ContactReferred To ContactOral Surgery Diagnoses Extraction of tooth needed Dental caries Yu Fu, DDS [address] [id number] [facility] ORAL SURGERY [address] [place] [address] Referral IDStatusReasonSttuthill DateExpiration DateVisits RequestedVisits [id number]/2/20235/ Scheduling Instructions Please call the diesel engineer Clinic at [facility] at to schedule an appointment if one was not made for you today. Comments EXT #1, 16, 17, 32 SpecialtyDiagnoses / ProceduresReferred By ContactReferred To ContactOral Surgery Diagnoses Abnormal tooth eruption Procedures FULL BONY IMPACTION DEEP ANESTHESIA, 1ST 15 MINS GENERAL ANESTH EA ADDL 15 MIN Barby Mora DMD, MD [address] [place] [address] Referral IDStatusReasonStart DateExpiration DateVisits RequestedVisits [id number] Jcswwu31/ Scheduling Instructions If your in-clinic procedure was [...] your procedure, you will be contacted with lst-vc-sdlivxt costs or next steps. All self-pay payments [...] the procedure: You also MUST have a set key driver/escort >18yrs old present to take you [...] Extraction of tooth needed Dental caries Yu Fu DDS [address] [place] [address] [facility] ORAL SURGERY [address] [place] [address] Referral IDStatusReasonStart DateExpiration DateVisits RequestedVisits [id number]/2/20235/2/579903MmorxevikGjnmarejd / Procedures Referred By ContactReferred To ContactAmbulatory Surgery Diagnoses Abnormal tooth eruption Abnormal tooth eruption [K00.6] Procedures UNLISTED PROCEDURE, DENTOALVEOLAR STRUCTURES ANESTHESIA, INTRAORAL PROC, W/BX; NOS EXTRACTION, TOOTH Barby Mora DMD, MD [address] [place] [address] [facility] [address] [place] [phone] Phone: [phone] Referral IDStatusReasonStart DateExpiration DateVisits RequestedVisits [id number] Follow-upReasonCommentsMiscarriagePt present today for a f/up miscarriage visit. Care Teams (unrecognized sec tion and content) Team MemberRelationshipSpecialtyStart DateEnd Date Barby Mora DMD, MD [address] [place] [address] PhysicianOral & Maxillofacial Nipgpih53/2/23Team MemberRelationshipSpecialty Start DateEnd Date Barby Mora DMD, MD [address] [place] [address] PhysicianOral & Maxillofacial Moylpnb91/2/23 Team Status: Inactive Member Role Status Dates Haley Dickerson MD Attending Provider Active Sta rt: July 18, 2024 End: July 18, 2024 Team Status: Inactive Member Role Status Dates Shabbir Kraus MD Attending Provider Active Start : October 22, 2024 End: October 22, 2024 Scheduled Active and Recently Administ ered Medications (unrecognized section and content) Medication Order acetaminophen (TYLENOL) tablet 1,000 mg, Oral, EVERY [...] and content) DATE CREATED AUTHOR 03/31/2023 [facility] DATE CREATED AUTHOR AUTHOR'S ORGANIZ ATION 10/25/2024 [facility] DATE CREATED AUTHOR AUTHOR'S ORGANIZ ATION 01/22/2025 [facility] Goals (unrecognized section and content) Goals may [...] BE BASED ON THE PRIMARY CLINICAL RECORDS. [employer] provides no warranty or guarantee of the accuracy or completeness of information in this document.
--- OUTSIDE RECORDS SUMMARY | 2025-02-24 08:02 | XMS_ITS | Clinical Summary ---
Author Organization [facility] Address [address] [place] [address] Care Team Providers Care Talent Director Name Role Phone Melani Mora DMD, MD Unavailable [phone] Source Comments The following information is NOT included in Care Everywhere downloads:Psychiatric notes, ECG results, Cardiac Rehab notes, Pulmonary Function notes, data from [facility] (includes but not limited toPregnancy data,audiograms, eye exams, pre-surgical evaluation notes, well-child exam data).[facility] Allergies No known active allergies Medications MedicationSigDispense [...] Resolved Problems ProblemNoted DateDiagnosed DateResolved DateAbnormal tooth /07/2023 03/22/2023 Immunizations ImmunizationAdministration DatesNext DueDTaP, 5 pertussis antigens (Daptacel) (SWW=753)10/03/2005DTaP-Hep B-IPV (Pediarix) (TJV=273)01/02/2005,2004, 2004HPV, 9-valent (Gardasil 9) (BBB=961)05/30/2018,08/31/2016Hep A (peds/adol, 2 dose) (CVX=83)11/07/2006,05/09/2006Hib (PRP-T) (CVX=48)10/03/2005, 01/02/2005,2004,2004Influenza, injectable, trivalent, preservative free (IQO=789)02/24/2007Influenza, intranasal, live, trivalent (LAIV3) (RPI=338) 02/20/2008MMR, Xxikjes-Xungc-Wyatdiw (CVX=03)08/20/2008,10/03/2005Meningococcal conjugate (MCV4,Men-ACWY), Menactra (MCV4P) (SRY=786)07/24/2021,08/31/2016 Pneumococcal conjugate 7 valent (PCV7) (RCQ=984)10/03/2005,01/02/2005,2004 ,2004Polio, inactivated (IPV) (CVX=10)09/02/2009Tdap (TVH=973)08/31/2016, 08/20/2008Varicella (Chickenpox) (CVX=21)08/20/2008,10/03/2005 Social History Tobacco UseTypesPacks/DayYears UsedDateSmoking Tobacco: Every Michael-cigarette Smokeless Tobacco: Never Tobacco Cessation:Ready to Q uit: Not Asked Alcohol UseStandard Drinks/WeekCommentsNot Currently0 (1 standard drink = 0.6 oz pure alcohol)Substance UseTypesUse/WeekCommentsYesMarijuana/THCComments NoSex and Gender InformationValueDate RecordedSex Assigned at BirthNot on file Legal RskOupavm36/02/2023 4:18 PM EDTGender IdentityNot on fileSexual OrientationNot on file Last Filed Vital Signs Vital SignReadingTime TakenCommentsBlood Ofiuhnze069/8403/22/2023 12:00 PM EST Vqqmx678803/22/2023 12:00 PM FYFZbyvefvagvu96.2 ??C (98.9 ??F)03/22/2023 11:21 AM ESTRespiratory Mvdv307805/23/2022 12:00 PM ESTOxygen Pmeqnmjrpp357%03/22/2023 12:00 PM ESTInhaled Oxygen Concentration--Ekiqfk31.4 kg (120 lb)03/22/2023 10:04 AM JLYJlthvj182.6 cm (5' 4 )03/22/2023 10:04 AM ESTBody Mass Index20.6105/23/2022 10:04 AM EST Plan of Treatment Health MaintenanceDue DateLast DoneCommentsHIV Test07/03/2019Meningococcal B (Bexsero,OMV) Vaccine (Optional,16-23 years)2020Hepatitis C Antibody 2022STI Screening (Age 18-24)2022neumococcal Vaccine(s) (1 of 2 - PCV)/07/2005, 01/02/2005, 2004, Additional history exists COVID-19 Vaccine (1 - 2024- season)2024Influenza Vaccine (#1)2024 02/20/2008, 02/24/2007Tetanus (Td or Tdap) Skmgdoo85/02/40665008/31/2016, 08/20/2008Shingles (RZV) Vaccine (1 of 2)2054Hepatitis B (HBV) Vaccine Fxotshzsv81/04/2005, 2004, 2004Hepatitis A (HAV) VaccineCompleted 11/07/2006, 05/09/2006Tdap JbtrdbjBaktoykwl35/02/2017, 08/20/2008HPV Vaccine Roknccrxf60/01/2019, 08/31/2016Meningococcal Conjugate (MCV4,ACWY) Vaccine Lodnisgsnkfv59/25/2022, 08/31/2016MammographyDiscontinued Insurance on file * Guarantor: Rand Jackson TypeRelation to PatientDate of BirthPhone Billing WdwnjhwWcpwlelmwngtzKpnn21/03/2006 [address] [place] [address] Care Teams Team MemberRelationshipSpecialtyStart DateEnd Date Melani Mora DMD, MD [address] [place] [id number] PhysicianOral & Maxillofacial Grilasq23/2/23
== END 2025-03-01 08:31 | disposition home or self-care (01) ==
LOC: LAB 07:56
PROVIDERS: Visit Provider Obstetrics & Gynecology
DX: Z51.81 Encounter for therapeutic drug level monitoring (principal); Z32.01 Encounter for pregnancy test, result positive; N92.6 Irregular menstruation, unspecified
CPT/HCPCS: 36415; 84702